=== PATIENT | male | born 1970 | race Two or more races ===

== ENCOUNTER 2019-11-07 10:25 | Inpatient (IN) | payer BC, OTHER ==
[~2019-11-07] VITALS: Ht 170.2 cm; Wt 73.6 kg
[2019-11-07 11:22] LABS: BASO % 0 % (0-3); EOS % 0 % (0-3); HEMATOCRIT 42.9 % (39.0-53.0); HEMOGLOBIN 14.7 g/dL (13.0-17.5); LYMPH # 0.7 x10^3/uL (1.0-4.8); LYMPH % 9 % (24-48); MEAN CORPUSCULAR HEMOGLOBIN 30 pg (25-35); MEAN CORPUSCULAR HGB CONC 34 g/dL (31-37); MEAN CORPUSCULAR VOLUME 87 fL (79-100); MONO # 0.5 x10^3/uL (0.0-1.1); MONO % 6 % (0-9); NEUT # 6.6 x10^3/uL (1.8-7.7); NEUT % 84 % (31-73); PLATELET COUNT 243 x10^3/uL (140-400); RED BLOOD COUNT 4.94 x10^6/uL (4.30-5.70); RED CELL DISTRIBUTION WIDTH 13.2 % (11.5-14.5); WHITE BLOOD COUNT 7.9 x10^3/uL (4.0-11.0)
[2019-11-07 11:33] LABS: CALCIUM 8.2 mg/dL (8.5-10.1); CREATININE 0.8 mg/dL (0.7-1.3); GFR 102.3; POTASSIUM 3.4 mmol/L (3.5-5.1)
[2019-11-07 11:39] LABS: ALBUMIN 2.9 g/dL (3.4-5.0); ALBUMIN/GLOBULIN RATIO 0.6 (1.0-1.7); TOTAL BILIRUBIN 0.6 mg/dL (0.2-1.0); TOTAL PROTEIN 7.6 g/dL (6.4-8.2)
[2019-11-07 11:40] LABS: D-DIMER 0.31 ug/mlFEU (0.00-0.50)
--- NOTE | 2019-11-07 11:48 | EKG ---
[facility] [address] [place] [address] Test Date: 2019-11-07 Test Time: 10:58:39 Pat Name: DEEPIKA LOMBARDO Department: Room: Gender: M [employer]: : 1970 Requested By: ANDREA GALLEGOS Order Number: [id number] Reading MD: Measurements Intervals [place] Rate: 103 P: 3 WI: 128 QRS: 0 QRSD: 80 T: 21 QT: 348 QTc: 458 Interpretive Statements SINUS TACHYCARDIA LEFTWARD AXIS OTHERWISE NORMAL ECG RI6.01 No previous ECG available for comparison
--- NOTE | 2019-11-07 12:22 | RAD ---
Chest one view HISTORY: Shortness of breath Comparison April 15, 2016 Patchy bilateral infiltrates worse on the right are present No effusions Heart pulmonary vasculature unremarkable IMPRESSION: Acute alveolar infiltrates worse on the right Electronically signed by: Joseph Allen MD (11/07/2019 12:19 PM) [id number]
[2019-11-07] MEDS ORDERED: cefTRIAXone IV Push 1 GM VIAL. IVP ONE (12:45)
--- NOTE | 2019-11-07 12:56 | PHYS DOC ---
Past Medical History Past Medical History: Diabetes-Type II, High Cholesterol Past Surgical History: Other Additional Past Surgical Histo: back Smoking Status: Never Smoker Alcohol Use: None Drug Use: None General Adult EDM: Chief Complaint: COUGH HPI: HPI: Patient is a 48 year old male with history of diabetic, presented to ER today for evaluation of cough, fever, trouble breathing and generalized weakness. Patient has been sick for about 10 days, he was tested positive for COVID-19 on October 29 at an outside facility. Patient came here today because he IS having trouble breathing. Patient denies any chest pain, no abdominal pain, no nausea vomiting. Review of Systems: Review of Systems: Constitutional: Positive for fever or chills. Positive for generalized weakness. Eyes: Denies change in visual acuity. [] HENT: Denies nasal congestion or sore throat. [] Respiratory: Positive for cough and trouble breathing. Cardiovascular: Denies chest pain or edema. [] GI: Denies abdominal pain, nausea, vomiting, bloody stools or diarrhea. [] : Denies dysuria. [] Musculoskeletal: Denies back pain or joint pain. [] Integument: Denies rash. [] Neurologic: Denies headache, focal weakness or sensory changes. [] Endocrine: Denies polyuria or polydipsia. [] Lymphatic: Denies swollen glands. [] Psychiatric: Denies depression or anxiety. [] Heart Score: Risk Factors: Risk Factors: DM, Current or recent (<one month) smoker, HTN, HLP, family history of CAD, obesity. Risk Scores: Score 0 - 3: 2.5% MACE over next 6 weeks - Discharge Home Score 4 - 6: 20.3% MACE over next 6 weeks - Admit for Clinical Observation Score 7 - 10: 72.7% MACE over next 6 weeks - Early Invasive Strategies Current Medications: Current Medications Medications (Trade) Dose Ordered Sig/Amy Start Time Stop Time Status Last Admin Dose Admin Ceftriaxone Sodium (Rocephin) 1 gm 1X ONCE 11/07/19 12:45 11/07/19 12:47 DC Allergies: Allergies: Allergies Coded Allergies Type Severity Reaction Last Updated Verified No Known Drug Allergies 04/15/16 No Physical Exam: PE: Constitutional: Well developed, well nourished, no acute distress, non-toxic appearance. [] HENT: Normocephalic, atraumatic, bilateral external ears normal, oropharynx moist, no oral exudates, nose normal. [] Eyes: PERRLA, EOMI, conjunctiva normal, no discharge. [] Neck: Normal range of motion, no tenderness, supple, no stridor. [] Cardiovascular sinus tachycardia, no murmur Lungs & Thorax: Bilateral breath sounds with crackles at lung bases, no respiratory distress. Abdomen: Bowel sounds normal, soft, no tenderness, no masses, no pulsatile masses. [] Skin: Warm, dry, no erythema, no rash. [] Back: No tenderness, no CVA tenderness. [] Extremities: No tenderness, no cyanosis, no clubbing, ROM intact, no edema. [] Neurologic: Alert and oriented X 3, normal motor function, normal sensory function, no focal deficits noted. [] Psychologic: Affect normal, judgement normal, mood normal. [] Current Patient Data: Labs: Laboratory Tests Test 11/07/19 11:06 White Blood Count 7.9 x10^3/uL (4.0-11.0) Red Blood Count 4.94 x10^6/uL (4.30-5.70) Hemoglobin 14.7 g/dL (13.0-17.5) Hematocrit 42.9 % (39.0-53.0) Mean Corpuscular Volume 87 fL (79-100) Mean Corpuscular Hemoglobin 30 pg (25-35) Mean Corpuscular Hemoglobin Concent 34 g/dL (31-37) Red Cell Distribution Width 13.2 % (11.5-14.5) Platelet Count 243 x10^3/uL (140-400) Neutrophils (%) (Auto) 84 % (31-73) H Lymphocytes (%) (Auto) 9 % (24-48) L Monocytes (%) (Auto) 6 % (0-9) Eosinophils (%) (Auto) 0 % (0-3) Basophils (%) (Auto) 0 % (0-3) Neutrophils # (Auto) 6.6 x10^3/uL (1.8-7.7) Lymphocytes # (Auto) 0.7 x10^3/uL (1.0-4.8) L Monocytes # (Auto) 0.5 x10^3/uL (0.0-1.1) Eosinophils # (Auto) 0.0 x10^3/uL (0.0-0.7) Basophils # (Auto) 0.0 x10^3/uL (0.0-0.2) Prothrombin Time 13.0 SEC (11.7-14.0) Prothrombin Time INR 1.0 (0.8-1.1) Activated Partial Thromboplast Time 31 SEC (24-38) D-Dimer (Jen) 0.31 ug/mlFEU (0.00-0.50) Sodium Level 137 mmol/L (136-145) Potassium Level 3.4 mmol/L (3.5-5.1) L Chloride Level 99 mmol/L (98-107) Carbon Dioxide Level 27 mmol/L (21-32) Anion Gap 11 (6-14) Blood Urea Nitrogen 10 mg/dL (8-26) Creatinine 0.8 mg/dL (0.7-1.3) Estimated GFR (Cockcroft-Gault) 102.3 BUN/Creatinine Ratio 13 (6-20) Glucose Level 155 mg/dL (70-99) H Lactic Acid Level 1.3 mmol/L (0.4-2.0) Calcium Level 8.2 mg/dL (8.5-10.1) L Total Bilirubin 0.6 mg/dL (0.2-1.0) Aspartate Amino Transferase (AST) 44 U/L (15-37) H Alanine Aminotransferase (ALT) 47 U/L (16-63) Alkaline Phosphatase 86 U/L (46-116) Troponin I Quantitative < 0.017 ng/mL (0.000-0.055) Total Protein 7.6 g/dL (6.4-8.2) Albumin 2.9 g/dL (3.4-5.0) L Albumin/Globulin Ratio 0.6 (1.0-1.7) L Lipase 112 U/L (73-393) Laboratory Tests 11/07/19 11:06 Laboratory Tests 11/07/19 11:06 Vital Signs: Vital Signs Date Time Temp Pulse Resp B/P (MAP) Pulse Ox O2 Delivery O2 Flow Rate FiO2 11/07/19 10:50 101.0 103 20 123/73 (90) 90 Nasal Cannula 81.0 101.0 EKG: EKG: [] Radiology/Procedures: Radiology/Procedures: [][facility] [address] [place] [address] IMAGING REPORT Signed PATIENT: DEEPIKA LOMBARDOACCOUNT: [id number] : 1970 LOCATION: ER AGE: 48 SEX: M EXAM STATUS: REG ER ORD. PHYSICIAN: ANDREA GALLEGOS DO REASON: SOA,COVID-19 INFECTION PROCEDURE: PORTABLE CHEST 1V Chest one view HISTORY: Shortness of breath Comparison April 15, 2016 Patchy bilateral infiltrates worse on the right are present No effusions Heart pulmonary vasculature unremarkable IMPRESSION: Acute alveolar infiltrates worse on the right Electronically signed by: Lexus Lisa MD (11/07/2019 12:19 PM) [id number] DICTATED and SIGNED BY: LEXUS LISA MD DATE: 11/07/19 1219 Course & Med Decision Making: Course & Med Decision Making Pertinent Labs and Imaging studies reviewed. (See chart for details) Patient is a 48-year-old male with COVID-19 pneumonia, presented with trouble breathing, his oxygen saturation on room air at 88%. Patient is not a smoker. Patient will be admitted to hospital for further evaluation and treatment. Discussed with Dr. Garduno who agrees TO admit the patient. Yosef Disclaimer: Yosef Disclaimer: This electronic medical record was generated, in whole or in part, using a voice recognition dictation system. Departure Departure Impression: Primary Impression: COVID-19 virus infection Additional Impressions: Pneumonia due to 2019 novel coronavirus Hypoxia Disposition: ADMITTED INPATIENT Admitting Physician: OLGA Condition: STABLE Referrals: JORGITO SWARTZ MD (PCP) Scripts No Active Prescriptions or Reported Meds Justicifation of Admission Dx: Justifications for Admission: Justification of Admission Dx: Yes Comminuty Aquired Pneumonia: Hypoxemia ANDREA GALLEGOS DO Nov 07, 2019 12:56
[2019-11-07] MEDS ORDERED: ONDANSETRON PF 4 MG/2 ML VIAL. IV PRN (13:15)
[2019-11-07] MEDS: IV NORMAL SALINE 1000ML BAG 1,000 ML IV SCH ×2 (13:59→18:12)
[2019-11-07 14:17] LABS: BILIRUBIN,URINE SMALL (NEG); CLARITY,URINE CLEAR; COLOR,URINE YELLOW; NITRITE,URINE NEGATIVE (NEG); PH,URINE 6.5 (<5.0-8.0); PROTEIN,URINE 100 mg/dL (NEG-TRACE)
[2019-11-07 14:31] LABS: SQUAMOUS EPITHELIAL CELL,UR FEW /LPF
[2019-11-07 14:32] LABS: BACTERIA,URINE 0 /HPF (0-FEW)
[2019-11-07] MEDS ORDERED: DEXTROSE 50% 25 GM / 50ML DISP.SYRIN. IV PRN (15:30)
[2019-11-07] MEDS ORDERED: POTASSIUM CHLORIDE 20 MEQ TABLET.ER. PO ONE (15:30)
[2019-11-07] MEDS: INSULIN LISPRO 300 UNITS/3 ML VIAL. SQ SCH (17:00)
--- NOTE | 2019-11-07 17:39 | CONS ---
DATE OF CONSULTATION: PULMONARY CONSULTATION ATTENDING PHYSICIAN: Mili Garduno MD REASON FOR CONSULTATION: COVID pneumonia, hypoxia, respiratory failure. HISTORY OF PRESENT ILLNESS: The patient is a 48-year-old male with history of diabetes. He presented to the Emergency Room with cough, fever, and shortness of breath and overall, generalized aches and pains. The patient was diagnosed with COVID-19 on 10/29 at an outside facility but starting to have some shortness of breath. As a result, he was hospitalized. His saturations were in the 80s on arrival. He is currently on 2 liters of oxygen. Chest x-ray revealed mild bilateral patchy infiltrates consistent with COVID-19 pneumonia. PAST MEDICAL HISTORY: Significant for type 2 diabetes and dyslipidemia. PAST SURGICAL HISTORY: No recent surgeries. ALLERGIES: None. MEDICATIONS: Reviewed as listed in the MRAD including Lovenox for DVT prophylaxis. REVIEW OF SYSTEMS: Due to language barrier unable to obtain from the patient. PHYSICAL EXAMINATION: VITAL SIGNS: Reviewed. T-max of 101, pulse ox 89% to 95% on 2 liters. Visual exam performed due to COVID-19 pandemia. GENERAL: He is in no obvious respiratory distress. He is comfortable on 2 liters. SKIN: No obvious skin rash. EXTREMITIES: No leg edema. LABORATORY DATA: Reviewed. White cell count 7.9, hemoglobin 14.7, platelets are 243. BUN and creatinine normal. IMPRESSION: 1. Acute hypoxic respiratory failure secondary to COVID-19 pneumonia. 2. Abnormal chest x-ray with faint bilateral patchy infiltrates favoring COVID-19 pneumonia. 3. No significant tobacco history. 4. Type 2 diabetes. RECOMMENDATIONS: 1. Continue present oxygen to keep saturation 92 and above. 2. Empiric antibiotic. 3. We will add steroids. 4. DVT prophylaxis with Lovenox. 5. We will monitor the clinical course. 6. Discussed with RN. DALLIN RICHEY MD DR: ADELINE/guera JOB#: [id number] / [id number]
[2019-11-07 18:06] VITALS: BP 102/71
[2019-11-07] MEDS: FOLIC/VIT B COMP W-C (RENAL) TABLET. PO SCH (18:12)
[2019-11-07] MEDS: ZINC SULFATE 220 MG CAPSULE. PO SCH (18:13)
--- NOTE | 2019-11-07 19:10 | PDOC1 ---
History and Physical Date of Admission Date of Admission DATE: 11/07/19 TIME: 19:05 Source Source: Chart review, Patient History of Present Illness History of Present Illness Mr. Brown is a 48 year old male admit with worsening symptoms of cough, fever, trouble breathing and generalized weakness. he appears listless and is lethargic, Patient has been sick for about 10 days, he was tested positive for COVID-19 on October 29 at an outside facility. admit from ER fro new hypoxia and trouble breathing, Patient denies any chest pain, no abdominal pain, no nausea vomiting. Past Medical History Cardiovascular: Hyperlipidemia Pulmonary: No pertinent hx CENTRAL NERVOUS SYSTEM: Other GI: No pertinent hx Heme/Onc: No pertinent hx Hepatobiliary: No pertinent hx Psych: No pertinent hx Musculoskeletal: low back pain, Osteoarthritis Rheumatologic: No pertinent hx Infectious disease: No pertinent hx Renal/: No pertinent hx Endocrine: Diabetes Past Surgical History Past Surgical History: Other Family History Family History: Diabetes Social History Smoke: No ALCOHOL: none Drugs: None Current Problem List Problem List Problems Medical Problems: (1) COVID-19 virus infection Status: Acute (2) Hypoxia Status: Acute (3) Pneumonia due to 2019 novel coronavirus Status: Acute Current Medications Current Medications Current Medications Ceftriaxone Sodium (Rocephin) 1 gm 1X ONCE IVP Last administered on 11/07/19at 14:00; Start 11/07/19 at 12:45; Stop 11/07/19 at 12:47; Status DC Ondansetron HCl (Zofran) 4 mg PRN Q8HRS PRN IV NAUSEA/VOMITING; Start 11/07/19 at 13:15; Stop 11/08/19 at 13:14 Sodium Chloride 1,000 ml @ 75 mls/hr [id number] IV Last administered on 11/07/19at 18:12; Start 11/07/19 at 13:13; Stop 11/08/19 at 13:12 Enoxaparin Sodium (Lovenox Per Pharmacy Prophylaxis Dosing) 1 each PRN DAILY PRN MC SEE COMMENTS; Start 11/07/19 at 15:30 Zinc Sulfate (Orazinc) 220 mg DAILY PO Last administered on 11/07/19at 18:13; Start 11/07/19 at 16:00 Vitamin B Complex/ Vitamin C (Lien-Anant) 1 tab DAILY PO Last administered on 11/07/19at 18:12; Start 11/07/19 at 16:00 Insulin Human Lispro (HumaLOG) 0-7 UNITS TIDWMEALS SQ ; Start 11/07/19 at 17:00 Dextrose (Dextrose 50%-Water Syringe) 12.5 gm PRN Q15MIN PRN IV SEE COMMENTS; Start 11/07/19 at 15:30 Potassium Chloride (Klor-Con) 40 meq 1X ONCE PO Last administered on 11/07/19at 18:12; Start 11/07/19 at 15:30; Stop 11/07/19 at 15:31; Status DC Enoxaparin Sodium (Lovenox 40mg Syringe) 40 mg BID SQ ; Start 11/07/19 at 21:00 Methylprednisolone Sodium Succinate (SOLU-Medrol 40MG VIAL) 40 mg Q8HRS IV ; Start 11/07/19 at 22:00 Ceftriaxone Sodium (Rocephin) 1 gm Q24H IVP ; Start 11/08/19 at 17:00 Active Scripts Active No Active Prescriptions or Reported Medications Allergies Allergies: Coded Allergies: No Known Drug Allergies (Unverified , 04/15/16) ROS General: YES: Chills, Fatigue, Malaise PSYCHOLOGICAL ROS: No: Anxiety, Behavioral Disorder, Concentration difficultie, Decreased libido, Depression, Disorientation, Hallucinations, Hostility, Irritablity, Memory difficulties, Mood Swings, Obsessive thoughts, Physical abuse, Sexual abuse, Sleep disturbances, Suicidal ideation, Other Eyes: No Blurry vision, No Decreased vision, No Double vision, No Dry eyes, No Excessive tearing, No Eye Pain, No Itchy Eyes, No Loss of vision, No Photophobia, No Scotomata, No Uses contacts, No Uses glasses, No Other HEENT: No: Heacaches, Visual Changes, Hearing change, Nasal congestion, Nasal discharge, Oral lesions, Sinus pain, Sore Throat, Epistaxis, Sneezing, Snoring, Tinnitus, Vertigo, Vocal changes, Other Respiratory: YES: Cough, Shortness of breath; No: Hemoptysis, Orthopnea, Pleuritic Pain, Sputum Changes, Stridor, Tachypnea, Wheezing, Other Cardiovascular: No Chest Pain, No Palpitations, No Orthopnea, No Paroxysmal Noc. Dyspnea, No Edema, No Lt Headedness, No Other Gastrointestinal: Yes Nausea; No Vomiting, No Abdominal Pain, No Diarrhea, No Constipation, No Melena, No Hematochezia, No Other Genitourinary: No Dysuria, No Frequency, No Incontinence, No Hematuria, No Retention, No Discharge, No Urgency, No Pain, No Flank Pain, No Other, No , No , No , No , No , No , No Musculoskeletal: Yes Joint Stiffness, Yes Muscle Pain; No Gait Disturbance, No Joint Pain, No Joint Swelling, No Muscular Weakness, No Pain In:, No Swelling In:, No Other Neurological: No Behavorial Changes, No Bowel/Bladder ControlChng, No Confusion, No Dizziness, No Gait Disturbance, No Headaches, No Impaired Coord/balance, No Memory Loss, No Numbness/Tingling, No Seizures, No Speech Problems, No Tremors, No Visual Changes, No Weakness, No Other Skin: Yes Dry Skin; No Eczema, No Hair Changes, No Lumps, No Mole Changes, No Mottling, No Nail Changes, No Pruritus, No Rash, No Skin Lesion Changes, No Other, No Acne Physical Exam General: Alert, Cooperative, mild distress, moderate distress HEENT: Atraumatic Lungs: Clear to auscultation Heart: S1S2, RRR Extremities: No edema Skin: No breakdown Neuro: Normal speech, Normal tone Psych/Mental Status: Mood NL Vitals Vitals Vital Signs Date Time Temp Pulse Resp B/P (MAP) Pulse Ox O2 Delivery O2 Flow Rate FiO2 11/07/19 18:06 98.4 84 18 102/71 (81) 93 Nasal Cannula 3.0 98.4 Labs Labs Laboratory Tests Test 11/07/19 11:06 11/07/19 14:05 11/07/19 14:36 11/07/19 17:14 White Blood Count 7.9 x10^3/uL (4.0-11.0) Red Blood Count 4.94 x10^6/uL (4.30-5.70) Hemoglobin 14.7 g/dL (13.0-17.5) Hematocrit 42.9 % (39.0-53.0) Mean Corpuscular Volume 87 fL (79-100) Mean Corpuscular Hemoglobin 30 pg (25-35) Mean Corpuscular Hemoglobin Concent 34 g/dL (31-37) Red Cell Distribution Width 13.2 % (11.5-14.5) Platelet Count 243 x10^3/uL (140-400) Neutrophils (%) (Auto) 84 % (31-73) Lymphocytes (%) (Auto) 9 % (24-48) Monocytes (%) (Auto) 6 % (0-9) Eosinophils (%) (Auto) 0 % (0-3) Basophils (%) (Auto) 0 % (0-3) Neutrophils # (Auto) 6.6 x10^3/uL (1.8-7.7) Lymphocytes # (Auto) 0.7 x10^3/uL (1.0-4.8) Monocytes # (Auto) 0.5 x10^3/uL (0.0-1.1) Eosinophils # (Auto) 0.0 x10^3/uL (0.0-0.7) Basophils # (Auto) 0.0 x10^3/uL (0.0-0.2) Prothrombin Time 13.0 SEC (11.7-14.0) Prothromb Time International Ratio 1.0 (0.8-1.1) Activated Partial Thromboplast Time 31 SEC (24-38) D-Dimer (Jen) 0.31 ug/mlFEU (0.00-0.50) Sodium Level 137 mmol/L (136-145) Potassium Level 3.4 mmol/L (3.5-5.1) Chloride Level 99 mmol/L (98-107) Carbon Dioxide Level 27 mmol/L (21-32) Anion Gap 11 (6-14) Blood Urea Nitrogen 10 mg/dL (8-26) Creatinine 0.8 mg/dL (0.7-1.3) Estimated GFR (Cockcroft-Gault) 102.3 BUN/Creatinine Ratio 13 (6-20) Glucose Level 155 mg/dL (70-99) Lactic Acid Level 1.3 mmol/L (0.4-2.0) Calcium Level 8.2 mg/dL (8.5-10.1) Total Bilirubin 0.6 mg/dL (0.2-1.0) Aspartate Amino Transf (AST/SGOT) 44 U/L (15-37) Alanine Aminotransferase (ALT/SGPT) 47 U/L (16-63) Alkaline Phosphatase 86 U/L (46-116) Troponin I Quantitative < 0.017 ng/mL (0.000-0.055) Total Protein 7.6 g/dL (6.4-8.2) Albumin 2.9 g/dL (3.4-5.0) Albumin/Globulin Ratio 0.6 (1.0-1.7) Lipase 112 U/L (73-393) Urine Collection Type Unknown Urine Color Yellow Urine Clarity Clear Urine pH 6.5 (<5.0-8.0) Urine Specific [place] 1.025 (1.000-1.030) Urine Protein 100 mg/dL (NEG-TRACE) Urine Glucose (UA) Negative mg/dL (NEG) Urine Ketones (Stick) >=80 mg/dL (NEG) Urine Blood Negative (NEG) Urine Nitrite Negative (NEG) Urine Bilirubin Small (NEG) Urine Urobilinogen Dipstick 1.0 mg/dL (0.2 mg/dL) Urine Leukocyte Esterase Negative (NEG) Urine RBC 1-2 /HPF (0-2) Urine WBC 1-4 /HPF (0-4) Urine Squamous Epithelial Cells Few /LPF Urine Bacteria 0 /HPF (0-FEW) Urine Mucus Slight /LPF Glucose (Fingerstick) 132 mg/dL (70-99) 166 mg/dL (70-99) Laboratory Tests Test 11/07/19 11:06 11/07/19 14:05 11/07/19 14:36 11/07/19 17:14 White Blood Count 7.9 x10^3/uL (4.0-11.0) Red Blood Count 4.94 x10^6/uL (4.30-5.70) Hemoglobin 14.7 g/dL (13.0-17.5) Hematocrit 42.9 % (39.0-53.0) Mean Corpuscular Volume 87 fL (79-100) Mean Corpuscular Hemoglobin 30 pg (25-35) Mean Corpuscular Hemoglobin Concent 34 g/dL (31-37) Red Cell Distribution Width 13.2 % (11.5-14.5) Platelet Count 243 x10^3/uL (140-400) Neutrophils (%) (Auto) 84 % (31-73) Lymphocytes (%) (Auto) 9 % (24-48) Monocytes (%) (Auto) 6 % (0-9) Eosinophils (%) (Auto) 0 % (0-3) Basophils (%) (Auto) 0 % (0-3) Neutrophils # (Auto) 6.6 x10^3/uL (1.8-7.7) Lymphocytes # (Auto) 0.7 x10^3/uL (1.0-4.8) Monocytes # (Auto) 0.5 x10^3/uL (0.0-1.1) Eosinophils # (Auto) 0.0 x10^3/uL (0.0-0.7) Basophils # (Auto) 0.0 x10^3/uL (0.0-0.2) Prothrombin Time 13.0 SEC (11.7-14.0) Prothromb Time International Ratio 1.0 (0.8-1.1) Activated Partial Thromboplast Time 31 SEC (24-38) D-Dimer (Jen) 0.31 ug/mlFEU (0.00-0.50) Sodium Level 137 mmol/L (136-145) Potassium Level 3.4 mmol/L (3.5-5.1) Chloride Level 99 mmol/L (98-107) Carbon Dioxide Level 27 mmol/L (21-32) Anion Gap 11 (6-14) Blood Urea Nitrogen 10 mg/dL (8-26) Creatinine 0.8 mg/dL (0.7-1.3) Estimated GFR (Cockcroft-Gault) 102.3 BUN/Creatinine Ratio 13 (6-20) Glucose Level 155 mg/dL (70-99) Lactic Acid Level 1.3 mmol/L (0.4-2.0) Calcium Level 8.2 mg/dL (8.5-10.1) Total Bilirubin 0.6 mg/dL (0.2-1.0) Aspartate Amino Transf (AST/SGOT) 44 U/L (15-37) Alanine Aminotransferase (ALT/SGPT) 47 U/L (16-63) Alkaline Phosphatase 86 U/L (46-116) Troponin I Quantitative < 0.017 ng/mL (0.000-0.055) Total Protein 7.6 g/dL (6.4-8.2) Albumin 2.9 g/dL (3.4-5.0) Albumin/Globulin Ratio 0.6 (1.0-1.7) Lipase 112 U/L (73-393) Urine Collection Type Unknown Urine Color Yellow Urine Clarity Clear Urine pH 6.5 (<5.0-8.0) Urine Specific [place] 1.025 (1.000-1.030) Urine Protein 100 mg/dL (NEG-TRACE) Urine Glucose (UA) Negative mg/dL (NEG) Urine Ketones (Stick) >=80 mg/dL (NEG) Urine Blood Negative (NEG) Urine Nitrite Negative (NEG) Urine Bilirubin Small (NEG) Urine Urobilinogen Dipstick 1.0 mg/dL (0.2 mg/dL) Urine Leukocyte Esterase Negative (NEG) Urine RBC 1-2 /HPF (0-2) Urine WBC 1-4 /HPF (0-4) Urine Squamous Epithelial Cells Few /LPF Urine Bacteria 0 /HPF (0-FEW) Urine Mucus Slight /LPF Glucose (Fingerstick) 132 mg/dL (70-99) 166 mg/dL (70-99) VTE Prophylaxis Ordered VTE Prophylaxis Devices: No VTE Pharmacological Prophylaxi: Yes Assessment/Plan Assessment/Plan COVID 19 acute hypoxia pneumonia sepsis moderate malnutrition Dm2, will do lantus and sliding scale admit to COVID unit, he was positive from oct 29, will isolate, seen with PPE, PULM consult, lovenox, steroid, abx, antitussives, Justicifation of Admission Dx: Justifications for Admission: Justification of Admission Dx: Yes Comminuty Aquired Pneumonia: Hypoxemia QASIM RHODES MD Nov 07, 2019 19:10
[2019-11-07] MEDS: INSULIN GLARGINE SYRINGE. SQ SCH (21:00)
[2019-11-07] MEDS: BENZONATATE 100 MG CAPSULE. PO SCH (21:53)
[2019-11-07] MEDS: DOXYCYCLINE HYCLATE 100 MG TABLET PO SCH (21:53)
[2019-11-07] MEDS: oxyCODONE/APAP 5/325 1 TAB TABLET PO PRN (21:54)
[2019-11-07] MEDS: ENOXAPARIN 40 MG/0.4 ML SYRINGE. SQ SCH (21:54)
[2019-11-07] MEDS: methylPREDNISolone SOD SUCC PF 40 MG/ML VIAL. IV SCH (21:54)
[2019-11-07 23:00] VITALS: BP 111/67
[2019-11-08] VITALS (18 sets, daily range): BP systolic 110–133; BP diastolic 60–80
[2019-11-08 04:38] LABS: BASO % 0 % (0-3); EOS % 0 % (0-3); HEMATOCRIT 43.7 % (39.0-53.0); HEMOGLOBIN 14.9 g/dL (13.0-17.5); LYMPH # 0.6 x10^3/uL (1.0-4.8); LYMPH % 8 % (24-48); MEAN CORPUSCULAR HEMOGLOBIN 30 pg (25-35); MEAN CORPUSCULAR HGB CONC 34 g/dL (31-37); MEAN CORPUSCULAR VOLUME 88 fL (79-100); MONO # 0.2 x10^3/uL (0.0-1.1); MONO % 4 % (0-9); NEUT % 88 % (31-73); PLATELET COUNT 264 x10^3/uL (140-400); RED BLOOD COUNT 4.95 x10^6/uL (4.30-5.70); RED CELL DISTRIBUTION WIDTH 13.3 % (11.5-14.5); WHITE BLOOD COUNT 6.8 x10^3/uL (4.0-11.0)
[2019-11-08 05:37] LABS: ALBUMIN 2.6 g/dL (3.4-5.0); ALBUMIN/GLOBULIN RATIO 0.6 (1.0-1.7); CALCIUM 8.6 mg/dL (8.5-10.1); CREATININE 0.9 mg/dL (0.7-1.3); GFR 89.3; POTASSIUM 4.2 mmol/L (3.5-5.1); TOTAL BILIRUBIN 0.5 mg/dL (0.2-1.0); TOTAL PROTEIN 7.3 g/dL (6.4-8.2)
[2019-11-08] MEDS: methylPREDNISolone SOD SUCC PF 40 MG/ML VIAL. IV SCH ×3 (06:52→22:00)
[2019-11-08] MEDS: INSULIN LISPRO 300 UNITS/3 ML VIAL. SQ SCH ×3 (08:00→17:00)
--- NOTE | 2019-11-08 08:38 | PDOC ---
PULMONARY PROGRESS NOTES DATE: 11/08/19 TIME: 08:38 Subjective Pt. has low grade fever this am, hypoxic this morning requiring NRB -- only 90% on NRB, will transfer to ICU Vitals Vital Signs Date Time Temp Pulse Resp B/P (MAP) Pulse Ox O2 Delivery O2 Flow Rate FiO2 11/08/19 04:15 92 Venturi Mask 15.0 11/08/19 03:00 98.2 83 18 110/62 (78) 98.2 Comments Visual exam preformed as pt. seen during COVID-19 pandemic 100% NRN tachyapenic RRR No rash no edema Labs Laboratory Tests Test 11/07/19 11:06 11/07/19 14:05 11/07/19 14:36 11/07/19 17:14 White Blood Count 7.9 x10^3/uL (4.0-11.0) Red Blood Count 4.94 x10^6/uL (4.30-5.70) Hemoglobin 14.7 g/dL (13.0-17.5) Hematocrit 42.9 % (39.0-53.0) Mean Corpuscular Volume 87 fL (79-100) Mean Corpuscular Hemoglobin 30 pg (25-35) Mean Corpuscular Hemoglobin Concent 34 g/dL (31-37) Red Cell Distribution Width 13.2 % (11.5-14.5) Platelet Count 243 x10^3/uL (140-400) Neutrophils (%) (Auto) 84 % (31-73) Lymphocytes (%) (Auto) 9 % (24-48) Monocytes (%) (Auto) 6 % (0-9) Eosinophils (%) (Auto) 0 % (0-3) Basophils (%) (Auto) 0 % (0-3) Neutrophils # (Auto) 6.6 x10^3/uL (1.8-7.7) Lymphocytes # (Auto) 0.7 x10^3/uL (1.0-4.8) Monocytes # (Auto) 0.5 x10^3/uL (0.0-1.1) Eosinophils # (Auto) 0.0 x10^3/uL (0.0-0.7) Basophils # (Auto) 0.0 x10^3/uL (0.0-0.2) Prothrombin Time 13.0 SEC (11.7-14.0) Prothromb Time International Ratio 1.0 (0.8-1.1) Activated Partial Thromboplast Time 31 SEC (24-38) D-Dimer (Jen) 0.31 ug/mlFEU (0.00-0.50) Sodium Level 137 mmol/L (136-145) Potassium Level 3.4 mmol/L (3.5-5.1) Chloride Level 99 mmol/L (98-107) Carbon Dioxide Level 27 mmol/L (21-32) Anion Gap 11 (6-14) Blood Urea Nitrogen 10 mg/dL (8-26) Creatinine 0.8 mg/dL (0.7-1.3) Estimated GFR (Cockcroft-Gault) 102.3 BUN/Creatinine Ratio 13 (6-20) Glucose Level 155 mg/dL (70-99) Lactic Acid Level 1.3 mmol/L (0.4-2.0) Calcium Level 8.2 mg/dL (8.5-10.1) Total Bilirubin 0.6 mg/dL (0.2-1.0) Aspartate Amino Transf (AST/SGOT) 44 U/L (15-37) Alanine Aminotransferase (ALT/SGPT) 47 U/L (16-63) Alkaline Phosphatase 86 U/L (46-116) Troponin I Quantitative < 0.017 ng/mL (0.000-0.055) Total Protein 7.6 g/dL (6.4-8.2) Albumin 2.9 g/dL (3.4-5.0) Albumin/Globulin Ratio 0.6 (1.0-1.7) Lipase 112 U/L (73-393) Urine Collection Type Unknown Urine Color Yellow Urine Clarity Clear Urine pH 6.5 (<5.0-8.0) Urine Specific Sells 1.025 (1.000-1.030) Urine Protein 100 mg/dL (NEG-TRACE) Urine Glucose (UA) Negative mg/dL (NEG) Urine Ketones (Stick) >=80 mg/dL (NEG) Urine Blood Negative (NEG) Urine Nitrite Negative (NEG) Urine Bilirubin Small (NEG) Urine Urobilinogen Dipstick 1.0 mg/dL (0.2 mg/dL) Urine Leukocyte Esterase Negative (NEG) Urine RBC 1-2 /HPF (0-2) Urine WBC 1-4 /HPF (0-4) Urine Squamous Epithelial Cells Few /LPF Urine Bacteria 0 /HPF (0-FEW) Urine Mucus Slight /LPF Glucose (Fingerstick) 132 mg/dL (70-99) 166 mg/dL (70-99) Test 11/07/19 22:07 11/08/19 03:40 11/08/19 08:23 Glucose (Fingerstick) 135 mg/dL (70-99) 220 mg/dL (70-99) White Blood Count 6.8 x10^3/uL (4.0-11.0) Red Blood Count 4.95 x10^6/uL (4.30-5.70) Hemoglobin 14.9 g/dL (13.0-17.5) Hematocrit 43.7 % (39.0-53.0) Mean Corpuscular Volume 88 fL (79-100) Mean Corpuscular Hemoglobin 30 pg (25-35) Mean Corpuscular Hemoglobin Concent 34 g/dL (31-37) Red Cell Distribution Width 13.3 % (11.5-14.5) Platelet Count 264 x10^3/uL (140-400) Neutrophils (%) (Auto) 88 % (31-73) Lymphocytes (%) (Auto) 8 % (24-48) Monocytes (%) (Auto) 4 % (0-9) Eosinophils (%) (Auto) 0 % (0-3) Basophils (%) (Auto) 0 % (0-3) Neutrophils # (Auto) 6.0 x10^3/uL (1.8-7.7) Lymphocytes # (Auto) 0.6 x10^3/uL (1.0-4.8) Monocytes # (Auto) 0.2 x10^3/uL (0.0-1.1) Eosinophils # (Auto) 0.0 x10^3/uL (0.0-0.7) Basophils # (Auto) 0.0 x10^3/uL (0.0-0.2) Sodium Level 138 mmol/L (136-145) Potassium Level 4.2 mmol/L (3.5-5.1) Chloride Level 101 mmol/L (98-107) Carbon Dioxide Level 26 mmol/L (21-32) Anion Gap 11 (6-14) Blood Urea Nitrogen 13 mg/dL (8-26) Creatinine 0.9 mg/dL (0.7-1.3) Estimated GFR (Cockcroft-Gault) 89.3 BUN/Creatinine Ratio 14 (6-20) Glucose Level 218 mg/dL (70-99) Calcium Level 8.6 mg/dL (8.5-10.1) Total Bilirubin 0.5 mg/dL (0.2-1.0) Aspartate Amino Transf (AST/SGOT) 44 U/L (15-37) Alanine Aminotransferase (ALT/SGPT) 63 U/L (16-63) Alkaline Phosphatase 83 U/L (46-116) Total Protein 7.3 g/dL (6.4-8.2) Albumin 2.6 g/dL (3.4-5.0) Albumin/Globulin Ratio 0.6 (1.0-1.7) Laboratory Tests Test 11/07/19 11:06 11/07/19 14:05 11/07/19 14:36 11/07/19 17:14 White Blood Count 7.9 x10^3/uL (4.0-11.0) Red Blood Count 4.94 x10^6/uL (4.30-5.70) Hemoglobin 14.7 g/dL (13.0-17.5) Hematocrit 42.9 % (39.0-53.0) Mean Corpuscular Volume 87 fL (79-100) Mean Corpuscular Hemoglobin 30 pg (25-35) Mean Corpuscular Hemoglobin Concent 34 g/dL (31-37) Red Cell Distribution Width 13.2 % (11.5-14.5) Platelet Count 243 x10^3/uL (140-400) Neutrophils (%) (Auto) 84 % (31-73) Lymphocytes (%) (Auto) 9 % (24-48) Monocytes (%) (Auto) 6 % (0-9) Eosinophils (%) (Auto) 0 % (0-3) Basophils (%) (Auto) 0 % (0-3) Neutrophils # (Auto) 6.6 x10^3/uL (1.8-7.7) Lymphocytes # (Auto) 0.7 x10^3/uL (1.0-4.8) Monocytes # (Auto) 0.5 x10^3/uL (0.0-1.1) Eosinophils # (Auto) 0.0 x10^3/uL (0.0-0.7) Basophils # (Auto) 0.0 x10^3/uL (0.0-0.2) Prothrombin Time 13.0 SEC (11.7-14.0) Prothromb Time International Ratio 1.0 (0.8-1.1) Activated Partial Thromboplast Time 31 SEC (24-38) D-Dimer (Jen) 0.31 ug/mlFEU (0.00-0.50) Sodium Level 137 mmol/L (136-145) Potassium Level 3.4 mmol/L (3.5-5.1) Chloride Level 99 mmol/L (98-107) Carbon Dioxide Level 27 mmol/L (21-32) Anion Gap 11 (6-14) Blood Urea Nitrogen 10 mg/dL (8-26) Creatinine 0.8 mg/dL (0.7-1.3) Estimated GFR (Cockcroft-Gault) 102.3 BUN/Creatinine Ratio 13 (6-20) Glucose Level 155 mg/dL (70-99) Lactic Acid Level 1.3 mmol/L (0.4-2.0) Calcium Level 8.2 mg/dL (8.5-10.1) Total Bilirubin 0.6 mg/dL (0.2-1.0) Aspartate Amino Transf (AST/SGOT) 44 U/L (15-37) Alanine Aminotransferase (ALT/SGPT) 47 U/L (16-63) Alkaline Phosphatase 86 U/L (46-116) Troponin I Quantitative < 0.017 ng/mL (0.000-0.055) Total Protein 7.6 g/dL (6.4-8.2) Albumin 2.9 g/dL (3.4-5.0) Albumin/Globulin Ratio 0.6 (1.0-1.7) Lipase 112 U/L (73-393) Urine Collection Type Unknown Urine Color Yellow Urine Clarity Clear Urine pH 6.5 (<5.0-8.0) Urine Specific Sells 1.025 (1.000-1.030) Urine Protein 100 mg/dL (NEG-TRACE) Urine Glucose (UA) Negative mg/dL (NEG) Urine Ketones (Stick) >=80 mg/dL (NEG) Urine Blood Negative (NEG) Urine Nitrite Negative (NEG) Urine Bilirubin Small (NEG) Urine Urobilinogen Dipstick 1.0 mg/dL (0.2 mg/dL) Urine Leukocyte Esterase Negative (NEG) Urine RBC 1-2 /HPF (0-2) Urine WBC 1-4 /HPF (0-4) Urine Squamous Epithelial Cells Few /LPF Urine Bacteria 0 /HPF (0-FEW) Urine Mucus Slight /LPF Glucose (Fingerstick) 132 mg/dL (70-99) 166 mg/dL (70-99) Test 11/07/19 22:07 11/08/19 03:40 11/08/19 08:23 Glucose (Fingerstick) 135 mg/dL (70-99) 220 mg/dL (70-99) White Blood Count 6.8 x10^3/uL (4.0-11.0) Red Blood Count 4.95 x10^6/uL (4.30-5.70) Hemoglobin 14.9 g/dL (13.0-17.5) Hematocrit 43.7 % (39.0-53.0) Mean Corpuscular Volume 88 fL (79-100) Mean Corpuscular Hemoglobin 30 pg (25-35) Mean Corpuscular Hemoglobin Concent 34 g/dL (31-37) Red Cell Distribution Width 13.3 % (11.5-14.5) Platelet Count 264 x10^3/uL (140-400) Neutrophils (%) (Auto) 88 % (31-73) Lymphocytes (%) (Auto) 8 % (24-48) Monocytes (%) (Auto) 4 % (0-9) Eosinophils (%) (Auto) 0 % (0-3) Basophils (%) (Auto) 0 % (0-3) Neutrophils # (Auto) 6.0 x10^3/uL (1.8-7.7) Lymphocytes # (Auto) 0.6 x10^3/uL (1.0-4.8) Monocytes # (Auto) 0.2 x10^3/uL (0.0-1.1) Eosinophils # (Auto) 0.0 x10^3/uL (0.0-0.7) Basophils # (Auto) 0.0 x10^3/uL (0.0-0.2) Sodium Level 138 mmol/L (136-145) Potassium Level 4.2 mmol/L (3.5-5.1) Chloride Level 101 mmol/L (98-107) Carbon Dioxide Level 26 mmol/L (21-32) Anion Gap 11 (6-14) Blood Urea Nitrogen 13 mg/dL (8-26) Creatinine 0.9 mg/dL (0.7-1.3) Estimated GFR (Cockcroft-Gault) 89.3 BUN/Creatinine Ratio 14 (6-20) Glucose Level 218 mg/dL (70-99) Calcium Level 8.6 mg/dL (8.5-10.1) Total Bilirubin 0.5 mg/dL (0.2-1.0) Aspartate Amino Transf (AST/SGOT) 44 U/L (15-37) Alanine Aminotransferase (ALT/SGPT) 63 U/L (16-63) Alkaline Phosphatase 83 U/L (46-116) Total Protein 7.3 g/dL (6.4-8.2) Albumin 2.6 g/dL (3.4-5.0) Albumin/Globulin Ratio 0.6 (1.0-1.7) Medications Active Scripts Medications Dose Route/Sig Max Daily Dose Days Date Category No Active Prescriptions or Reported Medications Rx Comments CXR IMPRESSION: Acute alveolar infiltrates worse on the right Impression . IMPRESSION: 1. Acute hypoxic respiratory failure secondary to COVID-19 pneumonia- worsening 2. Abnormal chest x-ray with faint bilateral patchy infiltrates favoring COVID- 19 pneumonia. 3. No significant tobacco history. 4. Type 2 diabetes. 5. Fever Plan . RECOMMENDATIONS: 1. Continue present oxygen to keep saturation 92 and above, requiring NRB at 100%, will use vapotherm if needed 2. cont. antibiotic 3. cont. steroids. 4. DVT prophylaxis with Lovenox. 5. will proceed with convalescent plasma 6. Discussed with RN. We will monitor the clinical course DALLIN RICHEY MD Nov 08, 2019 08:38
[2019-11-08 09:15] LABS: % BANDS 5 % (0-9); % LYMPHS 3 % (24-48); % MONOS 1 % (0-10); % SEGS 91 % (35-66); PLT ESTIMATE ADEQUATE (ADEQUATE)
--- NOTE | 2019-11-08 09:32 | NUR ---
Pt was initially on 4L and sat were approx 82% overnight as reported by night RN. The pt was then placed on 15L 50% venti. This nurse placed pt on nonrebreather at approx 0900 as pt had O2 saturation at 85%. Pt sats were then up to 93%.
--- NOTE | 2019-11-08 10:25 | PDOC ---
PROGRESS NOTES Date of Service: DATE: 11/08/19 TIME: 10:24 Chief Complaint Chief Complaint VTE Prophylaxis Ordered VTE Prophylaxis Devices: No VTE Pharmacological Prophylaxi: Yes Assessment/Plan Assessment/Plan COVID 19 acute hypoxia pneumonia sepsis moderate malnutrition Dm2, will do lantus and sliding scale admit to COVID unit, he was positive from oct 29, will isolate, seen with PPE, PULM consult, lovenox, steroid, abx, antitussives, Justicifation of Admission Dx: Justicifation of Admission Dx: Justifications for Admission: Justification of Admission Dx: Yes Comminuty Aquired Pneumonia: Hypoxemia History of Present Illness History of Present Illness History of Present Illness History of Present Illness Mr. Brown is a 48 year old male admit with worsening symptoms of cough, fever, trouble breathing and generalized weakness. he appears listless and is lethargic, Patient has been sick for about 10 days, he was tested positive for COVID-19 on October 29 at an outside facility. admit from ER fro new hypoxia and trouble breathing, Patient denies any chest pain, no abdominal pain, no nausea vomiting. Past Medical History Cardiovascular: Hyperlipidemia Pulmonary: No pertinent hx CENTRAL NERVOUS SYSTEM: Other GI: No pertinent hx Heme/Onc: No pertinent hx Hepatobiliary: No pertinent hx Psych: No pertinent hx Musculoskeletal: low back pain, Osteoarthritis Rheumatologic: No pertinent hx Infectious disease: No pertinent hx Renal/: No pertinent hx Endocrine: Diabetes Past Surgical History Past Surgical History: Other Family History Family History: Diabetes Social History Smoke: No ALCOHOL: none Drugs: None Vitals Vitals Vital Signs Date Time Temp Pulse Resp B/P (MAP) Pulse Ox O2 Delivery O2 Flow Rate FiO2 11/08/19 07:30 99.6 87 22 117/65 (82) 85 Venturi Mask 15.0 99.6 Physical Exam General: Alert, Cooperative, mild distress, moderate distress Extremities: No edema Skin: No breakdown Labs LABS Laboratory Tests Test 11/07/19 11:06 11/07/19 14:05 11/07/19 14:36 11/07/19 17:14 White Blood Count 7.9 x10^3/uL (4.0-11.0) Red Blood Count 4.94 x10^6/uL (4.30-5.70) Hemoglobin 14.7 g/dL (13.0-17.5) Hematocrit 42.9 % (39.0-53.0) Mean Corpuscular Volume 87 fL (79-100) Mean Corpuscular Hemoglobin 30 pg (25-35) Mean Corpuscular Hemoglobin Concent 34 g/dL (31-37) Red Cell Distribution Width 13.2 % (11.5-14.5) Platelet Count 243 x10^3/uL (140-400) Neutrophils (%) (Auto) 84 % (31-73) Lymphocytes (%) (Auto) 9 % (24-48) Monocytes (%) (Auto) 6 % (0-9) Eosinophils (%) (Auto) 0 % (0-3) Basophils (%) (Auto) 0 % (0-3) Neutrophils # (Auto) 6.6 x10^3/uL (1.8-7.7) Lymphocytes # (Auto) 0.7 x10^3/uL (1.0-4.8) Monocytes # (Auto) 0.5 x10^3/uL (0.0-1.1) Eosinophils # (Auto) 0.0 x10^3/uL (0.0-0.7) Basophils # (Auto) 0.0 x10^3/uL (0.0-0.2) Prothrombin Time 13.0 SEC (11.7-14.0) Prothromb Time International Ratio 1.0 (0.8-1.1) Activated Partial Thromboplast Time 31 SEC (24-38) D-Dimer (Jen) 0.31 ug/mlFEU (0.00-0.50) Sodium Level 137 mmol/L (136-145) Potassium Level 3.4 mmol/L (3.5-5.1) Chloride Level 99 mmol/L (98-107) Carbon Dioxide Level 27 mmol/L (21-32) Anion Gap 11 (6-14) Blood Urea Nitrogen 10 mg/dL (8-26) Creatinine 0.8 mg/dL (0.7-1.3) Estimated GFR (Cockcroft-Gault) 102.3 BUN/Creatinine Ratio 13 (6-20) Glucose Level 155 mg/dL (70-99) Lactic Acid Level 1.3 mmol/L (0.4-2.0) Calcium Level 8.2 mg/dL (8.5-10.1) Total Bilirubin 0.6 mg/dL (0.2-1.0) Aspartate Amino Transf (AST/SGOT) 44 U/L (15-37) Alanine Aminotransferase (ALT/SGPT) 47 U/L (16-63) Alkaline Phosphatase 86 U/L (46-116) Troponin I Quantitative < 0.017 ng/mL (0.000-0.055) Total Protein 7.6 g/dL (6.4-8.2) Albumin 2.9 g/dL (3.4-5.0) Albumin/Globulin Ratio 0.6 (1.0-1.7) Lipase 112 U/L (73-393) Urine Collection Type Unknown Urine Color Yellow Urine Clarity Clear Urine pH 6.5 (<5.0-8.0) Urine Specific Riner 1.025 (1.000-1.030) Urine Protein 100 mg/dL (NEG-TRACE) Urine Glucose (UA) Negative mg/dL (NEG) Urine Ketones (Stick) >=80 mg/dL (NEG) Urine Blood Negative (NEG) Urine Nitrite Negative (NEG) Urine Bilirubin Small (NEG) Urine Urobilinogen Dipstick 1.0 mg/dL (0.2 mg/dL) Urine Leukocyte Esterase Negative (NEG) Urine RBC 1-2 /HPF (0-2) Urine WBC 1-4 /HPF (0-4) Urine Squamous Epithelial Cells Few /LPF Urine Bacteria 0 /HPF (0-FEW) Urine Mucus Slight /LPF Glucose (Fingerstick) 132 mg/dL (70-99) 166 mg/dL (70-99) Test 11/07/19 22:07 11/08/19 03:40 11/08/19 08:23 Glucose (Fingerstick) 135 mg/dL (70-99) 220 mg/dL (70-99) White Blood Count 6.8 x10^3/uL (4.0-11.0) Red Blood Count 4.95 x10^6/uL (4.30-5.70) Hemoglobin 14.9 g/dL (13.0-17.5) Hematocrit 43.7 % (39.0-53.0) Mean Corpuscular Volume 88 fL (79-100) Mean Corpuscular Hemoglobin 30 pg (25-35) Mean Corpuscular Hemoglobin Concent 34 g/dL (31-37) Red Cell Distribution Width 13.3 % (11.5-14.5) Platelet Count 264 x10^3/uL (140-400) Neutrophils (%) (Auto) 88 % (31-73) Lymphocytes (%) (Auto) 8 % (24-48) Monocytes (%) (Auto) 4 % (0-9) Eosinophils (%) (Auto) 0 % (0-3) Basophils (%) (Auto) 0 % (0-3) Neutrophils # (Auto) 6.0 x10^3/uL (1.8-7.7) Lymphocytes # (Auto) 0.6 x10^3/uL (1.0-4.8) Monocytes # (Auto) 0.2 x10^3/uL (0.0-1.1) Eosinophils # (Auto) 0.0 x10^3/uL (0.0-0.7) Basophils # (Auto) 0.0 x10^3/uL (0.0-0.2) Segmented Neutrophils % 91 % (35-66) Band Neutrophils % 5 % (0-9) Lymphocytes % 3 % (24-48) Monocytes % 1 % (0-10) Platelet Estimate Adequate (ADEQUATE) Sodium Level 138 mmol/L (136-145) Potassium Level 4.2 mmol/L (3.5-5.1) Chloride Level 101 mmol/L (98-107) Carbon Dioxide Level 26 mmol/L (21-32) Anion Gap 11 (6-14) Blood Urea Nitrogen 13 mg/dL (8-26) Creatinine 0.9 mg/dL (0.7-1.3) Estimated GFR (Cockcroft-Gault) 89.3 BUN/Creatinine Ratio 14 (6-20) Glucose Level 218 mg/dL (70-99) Calcium Level 8.6 mg/dL (8.5-10.1) Total Bilirubin 0.5 mg/dL (0.2-1.0) Aspartate Amino Transf (AST/SGOT) 44 U/L (15-37) Alanine Aminotransferase (ALT/SGPT) 63 U/L (16-63) Alkaline Phosphatase 83 U/L (46-116) Total Protein 7.3 g/dL (6.4-8.2) Albumin 2.6 g/dL (3.4-5.0) Albumin/Globulin Ratio 0.6 (1.0-1.7) Assessment and Plan Assessmemt and Plan Problems Medical Problems: (1) COVID-19 virus infection Status: Acute (2) Hypoxia Status: Acute (3) Pneumonia due to 2019 novel coronavirus Status: Acute Comment Review of Relevant I have reviewed the following items jameson (where applicable) has been applied. Labs Laboratory Tests Test 11/07/19 11:06 11/07/19 14:05 11/07/19 14:36 11/07/19 17:14 White Blood Count 7.9 x10^3/uL (4.0-11.0) Red Blood Count 4.94 x10^6/uL (4.30-5.70) Hemoglobin 14.7 g/dL (13.0-17.5) Hematocrit 42.9 % (39.0-53.0) Mean Corpuscular Volume 87 fL (79-100) Mean Corpuscular Hemoglobin 30 pg (25-35) Mean Corpuscular Hemoglobin Concent 34 g/dL (31-37) Red Cell Distribution Width 13.2 % (11.5-14.5) Platelet Count 243 x10^3/uL (140-400) Neutrophils (%) (Auto) 84 % (31-73) Lymphocytes (%) (Auto) 9 % (24-48) Monocytes (%) (Auto) 6 % (0-9) Eosinophils (%) (Auto) 0 % (0-3) Basophils (%) (Auto) 0 % (0-3) Neutrophils # (Auto) 6.6 x10^3/uL (1.8-7.7) Lymphocytes # (Auto) 0.7 x10^3/uL (1.0-4.8) Monocytes # (Auto) 0.5 x10^3/uL (0.0-1.1) Eosinophils # (Auto) 0.0 x10^3/uL (0.0-0.7) Basophils # (Auto) 0.0 x10^3/uL (0.0-0.2) Prothrombin Time 13.0 SEC (11.7-14.0) Prothromb Time International Ratio 1.0 (0.8-1.1) Activated Partial Thromboplast Time 31 SEC (24-38) D-Dimer (Jen) 0.31 ug/mlFEU (0.00-0.50) Sodium Level 137 mmol/L (136-145) Potassium Level 3.4 mmol/L (3.5-5.1) Chloride Level 99 mmol/L (98-107) Carbon Dioxide Level 27 mmol/L (21-32) Anion Gap 11 (6-14) Blood Urea Nitrogen 10 mg/dL (8-26) Creatinine 0.8 mg/dL (0.7-1.3) Estimated GFR (Cockcroft-Gault) 102.3 BUN/Creatinine Ratio 13 (6-20) Glucose Level 155 mg/dL (70-99) Lactic Acid Level 1.3 mmol/L (0.4-2.0) Calcium Level 8.2 mg/dL (8.5-10.1) Total Bilirubin 0.6 mg/dL (0.2-1.0) Aspartate Amino Transf (AST/SGOT) 44 U/L (15-37) Alanine Aminotransferase (ALT/SGPT) 47 U/L (16-63) Alkaline Phosphatase 86 U/L (46-116) Troponin I Quantitative < 0.017 ng/mL (0.000-0.055) Total Protein 7.6 g/dL (6.4-8.2) Albumin 2.9 g/dL (3.4-5.0) Albumin/Globulin Ratio 0.6 (1.0-1.7) Lipase 112 U/L (73-393) Urine Collection Type Unknown Urine Color Yellow Urine Clarity Clear Urine pH 6.5 (<5.0-8.0) Urine Specific Riner 1.025 (1.000-1.030) Urine Protein 100 mg/dL (NEG-TRACE) Urine Glucose (UA) Negative mg/dL (NEG) Urine Ketones (Stick) >=80 mg/dL (NEG) Urine Blood Negative (NEG) Urine Nitrite Negative (NEG) Urine Bilirubin Small (NEG) Urine Urobilinogen Dipstick 1.0 mg/dL (0.2 mg/dL) Urine Leukocyte Esterase Negative (NEG) Urine RBC 1-2 /HPF (0-2) Urine WBC 1-4 /HPF (0-4) Urine Squamous Epithelial Cells Few /LPF Urine Bacteria 0 /HPF (0-FEW) Urine Mucus Slight /LPF Glucose (Fingerstick) 132 mg/dL (70-99) 166 mg/dL (70-99) Test 11/07/19 22:07 11/08/19 03:40 11/08/19 08:23 Glucose (Fingerstick) 135 mg/dL (70-99) 220 mg/dL (70-99) White Blood Count 6.8 x10^3/uL (4.0-11.0) Red Blood Count 4.95 x10^6/uL (4.30-5.70) Hemoglobin 14.9 g/dL (13.0-17.5) Hematocrit 43.7 % (39.0-53.0) Mean Corpuscular Volume 88 fL (79-100) Mean Corpuscular Hemoglobin 30 pg (25-35) Mean Corpuscular Hemoglobin Concent 34 g/dL (31-37) Red Cell Distribution Width 13.3 % (11.5-14.5) Platelet Count 264 x10^3/uL (140-400) Neutrophils (%) (Auto) 88 % (31-73) Lymphocytes (%) (Auto) 8 % (24-48) Monocytes (%) (Auto) 4 % (0-9) Eosinophils (%) (Auto) 0 % (0-3) Basophils (%) (Auto) 0 % (0-3) Neutrophils # (Auto) 6.0 x10^3/uL (1.8-7.7) Lymphocytes # (Auto) 0.6 x10^3/uL (1.0-4.8) Monocytes # (Auto) 0.2 x10^3/uL (0.0-1.1) Eosinophils # (Auto) 0.0 x10^3/uL (0.0-0.7) Basophils # (Auto) 0.0 x10^3/uL (0.0-0.2) Segmented Neutrophils % 91 % (35-66) Band Neutrophils % 5 % (0-9) Lymphocytes % 3 % (24-48) Monocytes % 1 % (0-10) Platelet Estimate Adequate (ADEQUATE) Sodium Level 138 mmol/L (136-145) Potassium Level 4.2 mmol/L (3.5-5.1) Chloride Level 101 mmol/L (98-107) Carbon Dioxide Level 26 mmol/L (21-32) Anion Gap 11 (6-14) Blood Urea Nitrogen 13 mg/dL (8-26) Creatinine 0.9 mg/dL (0.7-1.3) Estimated GFR (Cockcroft-Gault) 89.3 BUN/Creatinine Ratio 14 (6-20) Glucose Level 218 mg/dL (70-99) Calcium Level 8.6 mg/dL (8.5-10.1) Total Bilirubin 0.5 mg/dL (0.2-1.0) Aspartate Amino Transf (AST/SGOT) 44 U/L (15-37) Alanine Aminotransferase (ALT/SGPT) 63 U/L (16-63) Alkaline Phosphatase 83 U/L (46-116) Total Protein 7.3 g/dL (6.4-8.2) Albumin 2.6 g/dL (3.4-5.0) Albumin/Globulin Ratio 0.6 (1.0-1.7) Laboratory Tests Test 11/07/19 11:06 11/07/19 14:05 11/07/19 14:36 11/07/19 17:14 White Blood Count 7.9 x10^3/uL (4.0-11.0) Red Blood Count 4.94 x10^6/uL (4.30-5.70) Hemoglobin 14.7 g/dL (13.0-17.5) Hematocrit 42.9 % (39.0-53.0) Mean Corpuscular Volume 87 fL (79-100) Mean Corpuscular Hemoglobin 30 pg (25-35) Mean Corpuscular Hemoglobin Concent 34 g/dL (31-37) Red Cell Distribution Width 13.2 % (11.5-14.5) Platelet Count 243 x10^3/uL (140-400) Neutrophils (%) (Auto) 84 % (31-73) Lymphocytes (%) (Auto) 9 % (24-48) Monocytes (%) (Auto) 6 % (0-9) Eosinophils (%) (Auto) 0 % (0-3) Basophils (%) (Auto) 0 % (0-3) Neutrophils # (Auto) 6.6 x10^3/uL (1.8-7.7) Lymphocytes # (Auto) 0.7 x10^3/uL (1.0-4.8) Monocytes # (Auto) 0.5 x10^3/uL (0.0-1.1) Eosinophils # (Auto) 0.0 x10^3/uL (0.0-0.7) Basophils # (Auto) 0.0 x10^3/uL (0.0-0.2) Prothrombin Time 13.0 SEC (11.7-14.0) Prothromb Time International Ratio 1.0 (0.8-1.1) Activated Partial Thromboplast Time 31 SEC (24-38) D-Dimer (Jen) 0.31 ug/mlFEU (0.00-0.50) Sodium Level 137 mmol/L (136-145) Potassium Level 3.4 mmol/L (3.5-5.1) Chloride Level 99 mmol/L (98-107) Carbon Dioxide Level 27 mmol/L (21-32) Anion Gap 11 (6-14) Blood Urea Nitrogen 10 mg/dL (8-26) Creatinine 0.8 mg/dL (0.7-1.3) Estimated GFR (Cockcroft-Gault) 102.3 BUN/Creatinine Ratio 13 (6-20) Glucose Level 155 mg/dL (70-99) Lactic Acid Level 1.3 mmol/L (0.4-2.0) Calcium Level 8.2 mg/dL (8.5-10.1) Total Bilirubin 0.6 mg/dL (0.2-1.0) Aspartate Amino Transf (AST/SGOT) 44 U/L (15-37) Alanine Aminotransferase (ALT/SGPT) 47 U/L (16-63) Alkaline Phosphatase 86 U/L (46-116) Troponin I Quantitative < 0.017 ng/mL (0.000-0.055) Total Protein 7.6 g/dL (6.4-8.2) Albumin 2.9 g/dL (3.4-5.0) Albumin/Globulin Ratio 0.6 (1.0-1.7) Lipase 112 U/L (73-393) Urine Collection Type Unknown Urine Color Yellow Urine Clarity Clear Urine pH 6.5 (<5.0-8.0) Urine Specific Riner 1.025 (1.000-1.030) Urine Protein 100 mg/dL (NEG-TRACE) Urine Glucose (UA) Negative mg/dL (NEG) Urine Ketones (Stick) >=80 mg/dL (NEG) Urine Blood Negative (NEG) Urine Nitrite Negative (NEG) Urine Bilirubin Small (NEG) Urine Urobilinogen Dipstick 1.0 mg/dL (0.2 mg/dL) Urine Leukocyte Esterase Negative (NEG) Urine RBC 1-2 /HPF (0-2) Urine WBC 1-4 /HPF (0-4) Urine Squamous Epithelial Cells Few /LPF Urine Bacteria 0 /HPF (0-FEW) Urine Mucus Slight /LPF Glucose (Fingerstick) 132 mg/dL (70-99) 166 mg/dL (70-99) Test 11/07/19 22:07 11/08/19 03:40 11/08/19 08:23 Glucose (Fingerstick) 135 mg/dL (70-99) 220 mg/dL (70-99) White Blood Count 6.8 x10^3/uL (4.0-11.0) Red Blood Count 4.95 x10^6/uL (4.30-5.70) Hemoglobin 14.9 g/dL (13.0-17.5) Hematocrit 43.7 % (39.0-53.0) Mean Corpuscular Volume 88 fL (79-100) Mean Corpuscular Hemoglobin 30 pg (25-35) Mean Corpuscular Hemoglobin Concent 34 g/dL (31-37) Red Cell Distribution Width 13.3 % (11.5-14.5) Platelet Count 264 x10^3/uL (140-400) Neutrophils (%) (Auto) 88 % (31-73) Lymphocytes (%) (Auto) 8 % (24-48) Monocytes (%) (Auto) 4 % (0-9) Eosinophils (%) (Auto) 0 % (0-3) Basophils (%) (Auto) 0 % (0-3) Neutrophils # (Auto) 6.0 x10^3/uL (1.8-7.7) Lymphocytes # (Auto) 0.6 x10^3/uL (1.0-4.8) Monocytes # (Auto) 0.2 x10^3/uL (0.0-1.1) Eosinophils # (Auto) 0.0 x10^3/uL (0.0-0.7) Basophils # (Auto) 0.0 x10^3/uL (0.0-0.2) Segmented Neutrophils % 91 % (35-66) Band Neutrophils % 5 % (0-9) Lymphocytes % 3 % (24-48) Monocytes % 1 % (0-10) Platelet Estimate Adequate (ADEQUATE) Sodium Level 138 mmol/L (136-145) Potassium Level 4.2 mmol/L (3.5-5.1) Chloride Level 101 mmol/L (98-107) Carbon Dioxide Level 26 mmol/L (21-32) Anion Gap 11 (6-14) Blood Urea Nitrogen 13 mg/dL (8-26) Creatinine 0.9 mg/dL (0.7-1.3) Estimated GFR (Cockcroft-Gault) 89.3 BUN/Creatinine Ratio 14 (6-20) Glucose Level 218 mg/dL (70-99) Calcium Level 8.6 mg/dL (8.5-10.1) Total Bilirubin 0.5 mg/dL (0.2-1.0) Aspartate Amino Transf (AST/SGOT) 44 U/L (15-37) Alanine Aminotransferase (ALT/SGPT) 63 U/L (16-63) Alkaline Phosphatase 83 U/L (46-116) Total Protein 7.3 g/dL (6.4-8.2) Albumin 2.6 g/dL (3.4-5.0) Albumin/Globulin Ratio 0.6 (1.0-1.7) Medications Current Medications Ceftriaxone Sodium (Rocephin) 1 gm 1X ONCE IVP Last administered on 11/07/19at 14:00; Start 11/07/19 at 12:45; Stop 11/07/19 at 12:47; Status DC Ondansetron HCl (Zofran) 4 mg PRN Q8HRS PRN IV NAUSEA/VOMITING; Start 11/07/19 at 13:15; Stop 11/08/19 at 13:14 Sodium Chloride 1,000 ml @ 75 mls/hr [id number] IV Last administered on 11/07/19at 18:12; Start 11/07/19 at 13:13; Stop 11/08/19 at 13:12 Enoxaparin Sodium (Lovenox Per Pharmacy Prophylaxis Dosing) 1 each PRN DAILY PRN MC SEE COMMENTS; Start 11/07/19 at 15:30 Zinc Sulfate (Orazinc) 220 mg DAILY PO Last administered on 11/07/19at 18:13; Start 11/07/19 at 16:00 Vitamin B Complex/ Vitamin C (Lien-Anant) 1 tab DAILY PO Last administered on 11/07/19at 18:12; Start 11/07/19 at 16:00 Insulin Human Lispro (HumaLOG) 0-7 UNITS TIDWMEALS SQ ; Start 11/07/19 at 17:00 Dextrose (Dextrose 50%-Water Syringe) 12.5 gm PRN Q15MIN PRN IV SEE COMMENTS; Start 11/07/19 at 15:30 Potassium Chloride (Klor-Con) 40 meq 1X ONCE PO Last administered on 11/07/19at 18:12; Start 11/07/19 at 15:30; Stop 11/07/19 at 15:31; Status DC Enoxaparin Sodium (Lovenox 40mg Syringe) 40 mg BID SQ Last administered on 11/07/19at 21:54; Start 11/07/19 at 21:00 Methylprednisolone Sodium Succinate (SOLU-Medrol 40MG VIAL) 40 mg Q8HRS IV Last administered on 11/08/19at 06:52; Start 11/07/19 at 22:00 Ceftriaxone Sodium (Rocephin) 1 gm Q24H IVP ; Start 11/08/19 at 17:00 Doxycycline Hyclate (Vibra-Tab) 100 mg BID PO Last administered on 11/07/19at 21:53; Start 11/07/19 at 20:00 Insulin Glargine (Lantus Syringe) 12 unit QHS SQ ; Start 11/07/19 at 21:00 Benzonatate (Tessalon Perle) 100 mg [id number] PO Last administered on 11/07/19at 21:53; Start 11/07/19 at 21:00 Guaifenesin/ Codeine Phosphate (Robitussin Ac) 5 ml PRN Q6HRS PRN PO COUGH; Start 11/07/19 at 19:15 Oxycodone/ Acetaminophen (Percocet 5/325) 1 tab PRN Q4HRS PRN PO PAIN Last administered on 11/07/19at 21:54; Start 11/07/19 at 21:30 Acetaminophen (Tylenol) 650 mg PRN Q6HRS PRN PO FEVER > 100.3'F; Start 11/08/19 at 09:30 Active Scripts Active No Active Prescriptions or Reported Medications Vitals/I & O Vital Sign - Last 24 Hours 11/07/19 11/07/19 11/07/19 11/07/19 10:50 11:46 12:16 12:46 Temp 101.0 101.0 Pulse 103 104 104 106 Resp B/P (MAP) 123/73 (90) 119/74 (89) 118/73 (88) 120/74 (89) Pulse Ox 90 90 89 87 O2 Delivery Nasal Cannula Nasal Cannula Nasal Cannula Nasal Cannula O2 Flow Rate 81.0 2.0 2.0 2.0 11/07/19 11/07/19 11/07/19 11/07/19 13:16 13:46 14:46 15:46 Pulse 108 104 108 100 Resp B/P (MAP) 124/77 (93) 122/75 (91) 109/67 (81) 121/78 (92) Pulse Ox 95 89 89 92 O2 Delivery Nasal Cannula Nasal Cannula Nasal Cannula Nasal Cannula O2 Flow Rate 2.0 2.0 2.0 2.0 11/07/19 11/07/19 11/07/19 11/07/19 18:06 20:00 21:54 22:54 Temp 98.4 98.4 Pulse 84 Resp 18 B/P (MAP) 102/71 (81) Pulse Ox 93 93 O2 Delivery Nasal Cannula Nasal Cannula Nasal Cannula O2 Flow Rate 3.0 4.0 3.0 2.0 11/07/19 11/08/19 11/08/19 11/08/19 23:00 03:00 04:00 04:15 Temp 98.0 98.2 98.0 98.2 Pulse 86 83 Resp 18 B/P (MAP) 111/67 (82) 110/62 (78) Pulse Ox 91 94 83 92 O2 Delivery Nasal Cannula Nasal Cannula Nasal Cannula Venturi Mask O2 Flow Rate 3.0 3.0 4.0 15.0 11/08/19 07:30 Temp 99.6 99.6 Pulse 87 Resp 22 B/P (MAP) 117/65 (82) Pulse Ox 85 O2 Delivery Venturi Mask O2 Flow Rate 15.0 Intake and Output 11/07/19 11/07/19 11/08/19 15:00 23:00 07:00 Intake Total 600 ml 750 ml Output Total 200 ml 200 ml Balance 400 ml 550 ml Justicifation of Admission Dx: Justifications for Admission: Justification of Admission Dx: Yes Comminuty Aquired Pneumonia: Hypoxemia ANDRES VALDOVINOS MD Nov 08, 2019 10:25
[2019-11-08] MEDS: cefTRIAXone IV Push 1 GM VIAL. IVP SCH (10:40)
[2019-11-08] MEDS: ACETAMINOPHEN 325 MG TABLET. PO PRN (10:41)
[2019-11-08] MEDS: guaiFENesin/CODEINE 100mg/10mg 5 ML LIQUID PO PRN (10:41)
[2019-11-08] MEDS: DOXYCYCLINE HYCLATE 100 MG TABLET PO SCH ×2 (10:41→21:50)
[2019-11-08] MEDS: ZINC SULFATE 220 MG CAPSULE. PO SCH (10:41)
[2019-11-08] MEDS: ENOXAPARIN 40 MG/0.4 ML SYRINGE. SQ SCH ×2 (10:41→21:50)
[2019-11-08] MEDS: BENZONATATE 100 MG CAPSULE. PO SCH ×3 (10:41→21:50)
[2019-11-08] MEDS: FOLIC/VIT B COMP W-C (RENAL) TABLET. PO SCH (10:42)
--- NOTE | 2019-11-08 11:49 | NUR ---
report called to Radha in the ICU and the pts family all notified of the pts transfer. Pt transferred to Room 110 at approx 1150.
[2019-11-08] MEDS: STERILE WATER for RESP 1,000 ML BAG. INH PRN ×2 (12:45→18:03)
[2019-11-08] MEDS: oxyCODONE/APAP 5/325 1 TAB TABLET PO PRN (12:49)
--- NOTE | 2019-11-08 12:50 | NUR ---
Pt transferred via wheelchair, RN to rm 110 at approx 1150 for increased 02 requirements- placed on Vapotherm at 40L, 100% fi02. Pt does not appear to be in any distress, all VSS, no complaints of pain. Pt able to nod "yes" when RN asked if he understands POC, need to be in ICU. Placed in airborne precautions, seen with PPE on. Meal tray provided, resting with call light, will monitor
[2019-11-08] MEDS: DEXMEDETOMIDINE 400 MCG in IV NORMAL SALINE 100ML 96 ML IV PRN (20:13)
[2019-11-08] MEDS: INSULIN GLARGINE SYRINGE. SQ SCH (21:52)
[2019-11-09] VITALS (25 sets, daily range): BP systolic 98–143; BP diastolic 55–72
[2019-11-09] MEDS: methylPREDNISolone SOD SUCC PF 40 MG/ML VIAL. IV SCH ×3 (05:46→21:54)
[2019-11-09 08:02] LABS: BASE EXCESS COOX -1 mmol/L (-3-3); HCO3 COOX 22 mmol/L (21-28); OXYHEMOGLOBIN 89.2 %; PCO2 COOX 32 mmHg (35-46); PO2 COOX 55 mmHg (75-108); SAT O2 COOX 89 % (92-99)
[2019-11-09] MEDS: ENOXAPARIN 40 MG/0.4 ML SYRINGE. SQ SCH ×2 (08:37→21:55)
[2019-11-09] MEDS: ZINC SULFATE 220 MG CAPSULE. PO SCH (08:38)
[2019-11-09] MEDS: FOLIC/VIT B COMP W-C (RENAL) TABLET. PO SCH (08:38)
[2019-11-09] MEDS: DOXYCYCLINE HYCLATE 100 MG TABLET PO SCH ×2 (08:38→21:00)
[2019-11-09 08:52] LABS: CALCIUM 8.3 mg/dL (8.5-10.1); CREATININE 0.7 mg/dL (0.7-1.3); GFR 119.4
[2019-11-09] MEDS: BENZONATATE 100 MG CAPSULE. PO SCH ×3 (09:09→21:55)
[2019-11-09] MEDS: INSULIN LISPRO 300 UNITS/3 ML VIAL. SQ SCH ×4 (09:09→21:54)
--- NOTE | 2019-11-09 09:37 | PDOC ---
PULMONARY PROGRESS NOTES DATE: 11/09/19 TIME: 09:33 Subjective a-febrile overnight, remains on Vapotherm Mild SOB , no increase in cough Vitals Vital Signs Date Time Temp Pulse Resp B/P (MAP) Pulse Ox O2 Delivery O2 Flow Rate FiO2 11/09/19 09:00 70 24 115/67 (83) 90 Vapotherm 30.0 11/09/19 08:00 98.5 98.5 Comments Visual exam preformed as pt. seen during COVID-19 pandemic Vapotherm tachyapenic RRR No rash no edema Labs Laboratory Tests Test 11/07/19 11:06 11/07/19 14:05 11/07/19 14:36 11/07/19 17:14 White Blood Count 7.9 x10^3/uL (4.0-11.0) Red Blood Count 4.94 x10^6/uL (4.30-5.70) Hemoglobin 14.7 g/dL (13.0-17.5) Hematocrit 42.9 % (39.0-53.0) Mean Corpuscular Volume 87 fL (79-100) Mean Corpuscular Hemoglobin 30 pg (25-35) Mean Corpuscular Hemoglobin Concent 34 g/dL (31-37) Red Cell Distribution Width 13.2 % (11.5-14.5) Platelet Count 243 x10^3/uL (140-400) Neutrophils (%) (Auto) 84 % (31-73) Lymphocytes (%) (Auto) 9 % (24-48) Monocytes (%) (Auto) 6 % (0-9) Eosinophils (%) (Auto) 0 % (0-3) Basophils (%) (Auto) 0 % (0-3) Neutrophils # (Auto) 6.6 x10^3/uL (1.8-7.7) Lymphocytes # (Auto) 0.7 x10^3/uL (1.0-4.8) Monocytes # (Auto) 0.5 x10^3/uL (0.0-1.1) Eosinophils # (Auto) 0.0 x10^3/uL (0.0-0.7) Basophils # (Auto) 0.0 x10^3/uL (0.0-0.2) Prothrombin Time 13.0 SEC (11.7-14.0) Prothromb Time International Ratio 1.0 (0.8-1.1) Activated Partial Thromboplast Time 31 SEC (24-38) D-Dimer (Jen) 0.31 ug/mlFEU (0.00-0.50) Sodium Level 137 mmol/L (136-145) Potassium Level 3.4 mmol/L (3.5-5.1) Chloride Level 99 mmol/L (98-107) Carbon Dioxide Level 27 mmol/L (21-32) Anion Gap 11 (6-14) Blood Urea Nitrogen 10 mg/dL (8-26) Creatinine 0.8 mg/dL (0.7-1.3) Estimated GFR (Cockcroft-Gault) 102.3 BUN/Creatinine Ratio 13 (6-20) Glucose Level 155 mg/dL (70-99) Lactic Acid Level 1.3 mmol/L (0.4-2.0) Calcium Level 8.2 mg/dL (8.5-10.1) Total Bilirubin 0.6 mg/dL (0.2-1.0) Aspartate Amino Transf (AST/SGOT) 44 U/L (15-37) Alanine Aminotransferase (ALT/SGPT) 47 U/L (16-63) Alkaline Phosphatase 86 U/L (46-116) Troponin I Quantitative < 0.017 ng/mL (0.000-0.055) Total Protein 7.6 g/dL (6.4-8.2) Albumin 2.9 g/dL (3.4-5.0) Albumin/Globulin Ratio 0.6 (1.0-1.7) Lipase 112 U/L (73-393) Urine Collection Type Unknown Urine Color Yellow Urine Clarity Clear Urine pH 6.5 (<5.0-8.0) Urine Specific [place] 1.025 (1.000-1.030) Urine Protein 100 mg/dL (NEG-TRACE) Urine Glucose (UA) Negative mg/dL (NEG) Urine Ketones (Stick) >=80 mg/dL (NEG) Urine Blood Negative (NEG) Urine Nitrite Negative (NEG) Urine Bilirubin Small (NEG) Urine Urobilinogen Dipstick 1.0 mg/dL (0.2 mg/dL) Urine Leukocyte Esterase Negative (NEG) Urine RBC 1-2 /HPF (0-2) Urine WBC 1-4 /HPF (0-4) Urine Squamous Epithelial Cells Few /LPF Urine Bacteria 0 /HPF (0-FEW) Urine Mucus Slight /LPF Glucose (Fingerstick) 132 mg/dL (70-99) 166 mg/dL (70-99) Test 11/07/19 22:07 11/08/19 03:40 11/08/19 08:23 11/08/19 17:11 Glucose (Fingerstick) 135 mg/dL (70-99) 220 mg/dL (70-99) 306 mg/dL (70-99) White Blood Count 6.8 x10^3/uL (4.0-11.0) Red Blood Count 4.95 x10^6/uL (4.30-5.70) Hemoglobin 14.9 g/dL (13.0-17.5) Hematocrit 43.7 % (39.0-53.0) Mean Corpuscular Volume 88 fL (79-100) Mean Corpuscular Hemoglobin 30 pg (25-35) Mean Corpuscular Hemoglobin Concent 34 g/dL (31-37) Red Cell Distribution Width 13.3 % (11.5-14.5) Platelet Count 264 x10^3/uL (140-400) Neutrophils (%) (Auto) 88 % (31-73) Lymphocytes (%) (Auto) 8 % (24-48) Monocytes (%) (Auto) 4 % (0-9) Eosinophils (%) (Auto) 0 % (0-3) Basophils (%) (Auto) 0 % (0-3) Neutrophils # (Auto) 6.0 x10^3/uL (1.8-7.7) Lymphocytes # (Auto) 0.6 x10^3/uL (1.0-4.8) Monocytes # (Auto) 0.2 x10^3/uL (0.0-1.1) Eosinophils # (Auto) 0.0 x10^3/uL (0.0-0.7) Basophils # (Auto) 0.0 x10^3/uL (0.0-0.2) Segmented Neutrophils % 91 % (35-66) Band Neutrophils % 5 % (0-9) Lymphocytes % 3 % (24-48) Monocytes % 1 % (0-10) Platelet Estimate Adequate (ADEQUATE) Sodium Level 138 mmol/L (136-145) Potassium Level 4.2 mmol/L (3.5-5.1) Chloride Level 101 mmol/L (98-107) Carbon Dioxide Level 26 mmol/L (21-32) Anion Gap 11 (6-14) Blood Urea Nitrogen 13 mg/dL (8-26) Creatinine 0.9 mg/dL (0.7-1.3) Estimated GFR (Cockcroft-Gault) 89.3 BUN/Creatinine Ratio 14 (6-20) Glucose Level 218 mg/dL (70-99) Calcium Level 8.6 mg/dL (8.5-10.1) Total Bilirubin 0.5 mg/dL (0.2-1.0) Aspartate Amino Transf (AST/SGOT) 44 U/L (15-37) Alanine Aminotransferase (ALT/SGPT) 63 U/L (16-63) Alkaline Phosphatase 83 U/L (46-116) Total Protein 7.3 g/dL (6.4-8.2) Albumin 2.6 g/dL (3.4-5.0) Albumin/Globulin Ratio 0.6 (1.0-1.7) Test 11/08/19 22:10 11/09/19 07:30 11/09/19 08:00 11/09/19 08:46 Glucose (Fingerstick) 246 mg/dL (70-99) 260 mg/dL (70-99) O2 Saturation 89 % (92-99) Arterial Blood pH 7.45 (7.35-7.45) Arterial Blood pCO2 at Patient Temp 32 mmHg (35-46) Arterial Blood pO2 at Patient Temp 55 mmHg (75-108) Arterial Blood HCO3 22 mmol/L (21-28) Arterial Blood Base Excess -1 mmol/L (-3-3) Oxyhemoglobin 89.2 % Methemoglobin 0.0 % (0.0-1.9) Carbon Monoxide, Quantitative 0.1 % (0.0-1.9) FiO2 100 Sodium Level 138 mmol/L (136-145) Potassium Level 4.0 mmol/L (3.5-5.1) Chloride Level 104 mmol/L (98-107) Carbon Dioxide Level 26 mmol/L (21-32) Anion Gap 8 (6-14) Blood Urea Nitrogen 16 mg/dL (8-26) Creatinine 0.7 mg/dL (0.7-1.3) Estimated GFR (Cockcroft-Gault) 119.4 Glucose Level 269 mg/dL (70-99) Calcium Level 8.3 mg/dL (8.5-10.1) Laboratory Tests Test 11/08/19 17:11 11/08/19 22:10 11/09/19 07:30 11/09/19 08:00 Glucose (Fingerstick) 306 mg/dL (70-99) 246 mg/dL (70-99) O2 Saturation 89 % (92-99) Arterial Blood pH 7.45 (7.35-7.45) Arterial Blood pCO2 at Patient Temp 32 mmHg (35-46) Arterial Blood pO2 at Patient Temp 55 mmHg (75-108) Arterial Blood HCO3 22 mmol/L (21-28) Arterial Blood Base Excess -1 mmol/L (-3-3) Oxyhemoglobin 89.2 % Methemoglobin 0.0 % (0.0-1.9) Carbon Monoxide, Quantitative 0.1 % (0.0-1.9) FiO2 100 Sodium Level 138 mmol/L (136-145) Potassium Level 4.0 mmol/L (3.5-5.1) Chloride Level 104 mmol/L (98-107) Carbon Dioxide Level 26 mmol/L (21-32) Anion Gap 8 (6-14) Blood Urea Nitrogen 16 mg/dL (8-26) Creatinine 0.7 mg/dL (0.7-1.3) Estimated GFR (Cockcroft-Gault) 119.4 Glucose Level 269 mg/dL (70-99) Calcium Level 8.3 mg/dL (8.5-10.1) Test 11/09/19 08:46 Glucose (Fingerstick) 260 mg/dL (70-99) Medications Active Scripts Medications Dose Route/Sig Max Daily Dose Days Date Category No Active Prescriptions or Reported Medications Rx Comments CXR IMPRESSION: Acute alveolar infiltrates worse on the right Impression . IMPRESSION: 1. Acute hypoxic respiratory failure secondary to COVID-19 pneumonia- worsening 2. Abnormal chest x-ray with faint bilateral patchy infiltrates favoring COVID- 19 pneumonia. 3. No significant tobacco history. 4. Type 2 diabetes. 5. Fever -improved Plan . RECOMMENDATIONS: 1. Continue present oxygen to keep saturation 92 and above, requiring Vapotherm at 30 L and 100%, was unable to tolerate flow at 40 L, ABG reviewed and CXR reviewed 2. cont. antibiotic 3. cont. steroids. 4. DVT prophylaxis with Lovenox. 5. S/P convalescent plasma on 11/08/2019 6. Discussed with RN and RT 7. Continue to monitor clinical course Total CC time 30 minutes DALLIN RICHEY MD Nov 09, 2019 09:37
[2019-11-09] MEDS: STERILE WATER for RESP 1,000 ML BAG. INH PRN (11:26)
--- NOTE | 2019-11-09 11:40 | PDOC ---
[facility] PROGRESS NOTE Date of Service DOS: DATE: 11/09/19 TIME: 11:36 Chief Complaint Chief Complaint COVID 19 acute hypoxia pneumonia sepsis moderate malnutrition Dm2, will do lantus and sliding scale VTE Prophylaxis Ordered VTE Prophylaxis Devices: No VTE Pharmacological Prophylaxi: Yes admit to COVID unit, he was positive from oct 29, will isolate, seen with PPE, PULM consult, lovenox, steroid, abx, antitussives, Justicifation of Admission Dx: Justicifation of Admission Dx: Justifications for Admission: Justification of Admission Dx: Yes Comminuty Aquired Pneumonia: Hypoxemia History of Present Illness History of Present Illness 11/09/2019 Patient seen and examined Resting comfortably On vapotherm Received Plasma 11/07 Discussed with RN Charts reviewed History of Present Illness History of Present Illness Mr. Brown is a 48 year old male admit with worsening symptoms of cough, fever, trouble breathing and generalized weakness. he appears listless and is lethargic, Patient has been sick for about 10 days, he was tested positive for COVID-19 on October 29 at an outside facility. admit from ER fro new hypoxia and trouble breathing, Patient denies any chest pain, no abdominal pain, no nausea vomiting. Past Medical History Cardiovascular: Hyperlipidemia Pulmonary: No pertinent hx CENTRAL NERVOUS SYSTEM: Other GI: No pertinent hx Heme/Onc: No pertinent hx Hepatobiliary: No pertinent hx Psych: No pertinent hx Musculoskeletal: low back pain, Osteoarthritis Rheumatologic: No pertinent hx Infectious disease: No pertinent hx Renal/: No pertinent hx Endocrine: Diabetes Past Surgical History Past Surgical History: Other Family History Family History: Diabetes Social History Smoke: No ALCOHOL: none Drugs: None Vitals/I&O Vitals/I&O: Vital Signs Date Time Temp Pulse Resp B/P (MAP) Pulse Ox O2 Delivery O2 Flow Rate FiO2 11/09/19 11:20 92 vapotherm 40.0 11/09/19 10:00 88 35 104/57 (73) 11/09/19 08:00 98.5 98.5 I & O 11/08/19 11/08/19 11/09/19 15:00 23:00 07:00 Intake Total 620 ml 685 ml Output Total 0 ml 770 ml 630 ml Balance 0 ml -150 ml 55 ml Physical Exam General: Alert, Cooperative, No acute distress Extremities: No edema Skin: No breakdown Labs Labs: Laboratory Tests Test 11/08/19 17:11 11/08/19 22:10 11/09/19 07:30 11/09/19 08:00 Glucose (Fingerstick) 306 mg/dL (70-99) 246 mg/dL (70-99) O2 Saturation 89 % (92-99) Arterial Blood pH 7.45 (7.35-7.45) Arterial Blood pCO2 at Patient Temp 32 mmHg (35-46) Arterial Blood pO2 at Patient Temp 55 mmHg (75-108) Arterial Blood HCO3 22 mmol/L (21-28) Arterial Blood Base Excess -1 mmol/L (-3-3) Oxyhemoglobin 89.2 % Methemoglobin 0.0 % (0.0-1.9) Carbon Monoxide, Quantitative 0.1 % (0.0-1.9) FiO2 100 Sodium Level 138 mmol/L (136-145) Potassium Level 4.0 mmol/L (3.5-5.1) Chloride Level 104 mmol/L (98-107) Carbon Dioxide Level 26 mmol/L (21-32) Anion Gap 8 (6-14) Blood Urea Nitrogen 16 mg/dL (8-26) Creatinine 0.7 mg/dL (0.7-1.3) Estimated GFR (Cockcroft-Gault) 119.4 Glucose Level 269 mg/dL (70-99) Calcium Level 8.3 mg/dL (8.5-10.1) Test 11/09/19 08:46 11/09/19 11:25 Glucose (Fingerstick) 260 mg/dL (70-99) 263 mg/dL (70-99) Assessment and Plan Assessmemt and Plan Problems Medical Problems: (1) COVID-19 virus infection Status: Acute (2) Hypoxia Status: Acute (3) Pneumonia due to 2019 novel coronavirus Status: Acute Assessment COVID 19 acute hypoxia pneumonia sepsis moderate malnutrition Dm2 Plan Respiratory isolation IV steroids IV antibiotics DVT prophylaxis Multivitamins with minerals Consult ID Full code Comment Review of Relevant I have reviewed the following items jameson (where applicable) has been applied. Medications: Current Medications Medications (Trade) Dose Ordered Sig/Amy Route PRN Reason Start Time Stop Time Status Last Admin Dose Admin Ceftriaxone Sodium (Rocephin) 1 gm Q24H IVP 8/12/20 17:00 11/08/19 10:40 Sterile Water (WATER for RESP) 1,000 ml CONT PRN INH VIA VAPOTHERM DEVICE 11/08/19 12:45 11/09/19 11:26 Dexmedetomidine HCl 400 mcg/ Sodium Chloride 100 ml @ 0 mls/hr CONT PRN IV anxiety 11/08/19 19:00 11/08/19 20:13 Justicifation of Admission Dx: Justifications for Admission: Justification of Admission Dx: Yes Comminuty Aquired Pneumonia: Hypoxemia MIKE JAIME III DO Nov 09, 2019 11:40
[2019-11-09] MEDS: MULTIVITAMIN with MINERAL TABLET. PO SCH (13:11)
--- NOTE | 2019-11-09 13:39 | NUR ---
SS following for discharge planning. SS reviewed pt chart and discussed with pt RN. Pt is from home with spouse and is currently on Vapotherm. Pt on IV Rocephin. COVID19 positive. SS will continue to follow for discharge planning.
[2019-11-09] MEDS: cefTRIAXone IV Push 1 GM VIAL. IVP SCH (16:39)
[2019-11-09] MEDS: IV NORMAL SALINE 1000ML BAG 1,000 ML IV SCH (18:20)
[2019-11-09] MEDS: oxyCODONE/APAP 5/325 1 TAB TABLET PO PRN (20:10)
[2019-11-09] MEDS: DEXMEDETOMIDINE 400 MCG in IV NORMAL SALINE 100ML 96 ML IV PRN (20:10)
[2019-11-09] MEDS: LACTOBACILLUS RHAMNOSUS GG 1 CAPSULE. PO SCH (21:00)
[2019-11-09] MEDS: INSULIN GLARGINE SYRINGE. SQ SCH (21:54)
[2019-11-10] VITALS (23 sets, daily range): BP systolic 100–127; BP diastolic 58–81
[2019-11-10] MEDS: IV NORMAL SALINE 1000ML BAG 1,000 ML IV SCH ×2 (03:56→21:30)
[2019-11-10 04:27] LABS: BASO % 0 % (0-3); EOS % 0 % (0-3); HEMATOCRIT 40.8 % (39.0-53.0); HEMOGLOBIN 13.5 g/dL (13.0-17.5); LYMPH # 0.6 x10^3/uL (1.0-4.8); LYMPH % 4 % (24-48); MEAN CORPUSCULAR HEMOGLOBIN 29 pg (25-35); MEAN CORPUSCULAR HGB CONC 33 g/dL (31-37); MEAN CORPUSCULAR VOLUME 88 fL (79-100); MONO # 0.8 x10^3/uL (0.0-1.1); MONO % 5 % (0-9); NEUT # 13.1 x10^3/uL (1.8-7.7); NEUT % 90 % (31-73); PLATELET COUNT 364 x10^3/uL (140-400); RED BLOOD COUNT 4.62 x10^6/uL (4.30-5.70); RED CELL DISTRIBUTION WIDTH 12.9 % (11.5-14.5); WHITE BLOOD COUNT 14.5 x10^3/uL (4.0-11.0)
[2019-11-10] MEDS: STERILE WATER for RESP 1,000 ML BAG. INH PRN ×2 (04:30→13:43)
[2019-11-10] MEDS: methylPREDNISolone SOD SUCC PF 40 MG/ML VIAL. IV SCH ×3 (05:52→20:48)
[2019-11-10] MEDS: FOLIC/VIT B COMP W-C (RENAL) TABLET. PO SCH (08:38)
[2019-11-10] MEDS: ENOXAPARIN 40 MG/0.4 ML SYRINGE. SQ SCH ×2 (08:38→20:49)
[2019-11-10] MEDS: MULTIVITAMIN with MINERAL TABLET. PO SCH (08:38)
[2019-11-10] MEDS: ZINC SULFATE 220 MG CAPSULE. PO SCH (08:38)
[2019-11-10] MEDS: LACTOBACILLUS RHAMNOSUS GG 1 CAPSULE. PO SCH ×2 (08:38→20:48)
[2019-11-10] MEDS: DOXYCYCLINE HYCLATE 100 MG TABLET PO SCH ×2 (08:38→20:48)
[2019-11-10] MEDS: INSULIN LISPRO 300 UNITS/3 ML VIAL. SQ SCH ×4 (08:39→21:13)
--- NOTE | 2019-11-10 09:02 | PDOC ---
PULMONARY PROGRESS NOTES DATE: 11/10/19 TIME: 08:58 Subjective low grade fever overnight, remains on Vapotherm 40 L and 100% no SOB or CP or increased cough Vitals Vital Signs Date Time Temp Pulse Resp B/P (MAP) Pulse Ox O2 Delivery O2 Flow Rate FiO2 11/10/19 06:00 52 24 100/60 (73) 92 High Flow Nasal Cannula 40.0 11/10/19 04:00 99.0 99.0 Comments Visual exam preformed as pt. seen during COVID- pandemic Vapotherm tachyapenic RRR No rash no edema Labs Laboratory Tests Test 11/08/19 17:11 11/08/19 22:10 11/09/19 07:30 11/09/19 08:00 Glucose (Fingerstick) 306 mg/dL (70-99) 246 mg/dL (70-99) O2 Saturation 89 % (92-99) Arterial Blood pH 7.45 (7.35-7.45) Arterial Blood pCO2 at Patient Temp 32 mmHg (35-46) Arterial Blood pO2 at Patient Temp 55 mmHg (75-108) Arterial Blood HCO3 22 mmol/L (21-28) Arterial Blood Base Excess -1 mmol/L (-3-3) Oxyhemoglobin 89.2 % Methemoglobin 0.0 % (0.0-1.9) Carbon Monoxide, Quantitative 0.1 % (0.0-1.9) FiO2 100 Sodium Level 138 mmol/L (136-145) Potassium Level 4.0 mmol/L (3.5-5.1) Chloride Level 104 mmol/L (98-107) Carbon Dioxide Level 26 mmol/L (21-32) Anion Gap 8 (6-14) Blood Urea Nitrogen 16 mg/dL (8-26) Creatinine 0.7 mg/dL (0.7-1.3) Estimated GFR (Cockcroft-Gault) 119.4 Glucose Level 269 mg/dL (70-99) Calcium Level 8.3 mg/dL (8.5-10.1) Test 11/09/19 08:46 11/09/19 11:25 11/09/19 16:53 11/09/19 21:01 Glucose (Fingerstick) 260 mg/dL (70-99) 263 mg/dL (70-99) 263 mg/dL (70-99) 242 mg/dL (70-99) Test 11/10/19 03:30 11/10/19 07:47 White Blood Count 14.5 x10^3/uL (4.0-11.0) Red Blood Count 4.62 x10^6/uL (4.30-5.70) Hemoglobin 13.5 g/dL (13.0-17.5) Hematocrit 40.8 % (39.0-53.0) Mean Corpuscular Volume 88 fL (79-100) Mean Corpuscular Hemoglobin 29 pg (25-35) Mean Corpuscular Hemoglobin Concent 33 g/dL (31-37) Red Cell Distribution Width 12.9 % (11.5-14.5) Platelet Count 364 x10^3/uL (140-400) Neutrophils (%) (Auto) 90 % (31-73) Lymphocytes (%) (Auto) 4 % (24-48) Monocytes (%) (Auto) 5 % (0-9) Eosinophils (%) (Auto) 0 % (0-3) Basophils (%) (Auto) 0 % (0-3) Neutrophils # (Auto) 13.1 x10^3/uL (1.8-7.7) Lymphocytes # (Auto) 0.6 x10^3/uL (1.0-4.8) Monocytes # (Auto) 0.8 x10^3/uL (0.0-1.1) Eosinophils # (Auto) 0.0 x10^3/uL (0.0-0.7) Basophils # (Auto) 0.0 x10^3/uL (0.0-0.2) Glucose (Fingerstick) 216 mg/dL (70-99) Laboratory Tests Test 11/09/19 11:25 11/09/19 16:53 11/09/19 21:01 11/10/19 03:30 Glucose (Fingerstick) 263 mg/dL (70-99) 263 mg/dL (70-99) 242 mg/dL (70-99) White Blood Count 14.5 x10^3/uL (4.0-11.0) Red Blood Count 4.62 x10^6/uL (4.30-5.70) Hemoglobin 13.5 g/dL (13.0-17.5) Hematocrit 40.8 % (39.0-53.0) Mean Corpuscular Volume 88 fL (79-100) Mean Corpuscular Hemoglobin 29 pg (25-35) Mean Corpuscular Hemoglobin Concent 33 g/dL (31-37) Red Cell Distribution Width 12.9 % (11.5-14.5) Platelet Count 364 x10^3/uL (140-400) Neutrophils (%) (Auto) 90 % (31-73) Lymphocytes (%) (Auto) 4 % (24-48) Monocytes (%) (Auto) 5 % (0-9) Eosinophils (%) (Auto) 0 % (0-3) Basophils (%) (Auto) 0 % (0-3) Neutrophils # (Auto) 13.1 x10^3/uL (1.8-7.7) Lymphocytes # (Auto) 0.6 x10^3/uL (1.0-4.8) Monocytes # (Auto) 0.8 x10^3/uL (0.0-1.1) Eosinophils # (Auto) 0.0 x10^3/uL (0.0-0.7) Basophils # (Auto) 0.0 x10^3/uL (0.0-0.2) Test 11/10/19 07:47 Glucose (Fingerstick) 216 mg/dL (70-99) Medications Active Scripts Medications Dose Route/Sig Max Daily Dose Days Date Category No Active Prescriptions or Reported Medications Rx Comments CXR IMPRESSION: Acute alveolar infiltrates worse on the right Impression . IMPRESSION: 1. Acute hypoxic respiratory failure secondary to COVID-19 pneumonia- ongoing 2. Abnormal chest x-ray with faint bilateral patchy infiltrates favoring COVID- 19 pneumonia. 3. No significant tobacco history. 4. Type 2 diabetes. 5. Fever -improved Plan . RECOMMENDATIONS: 1. Continue present oxygen to keep saturation 92 and above, requiring Vapotherm at 40 L and 100%, now on precedex to help tolerate increased flow 2. Cont. antibiotics 3. Cont. steroids 4. DVT prophylaxis with Lovenox. 5. S/P convalescent plasma on 11/08/2019 6. Discussed with RN and RT 7. Continue to monitor clinical course TOTAL CC time 30 min DALLIN RICHEY MD Nov 10, 2019 09:02
[2019-11-10 09:34] LABS: ALBUMIN 2.5 g/dL (3.4-5.0); DIRECT BILIRUBIN 0.2 mg/dL (0.0-0.2); TOTAL BILIRUBIN 0.5 mg/dL (0.2-1.0); TOTAL PROTEIN 5.9 g/dL (6.4-8.2)
--- NOTE | 2019-11-10 09:45 | CONS ---
DATE OF CONSULTATION: 11/10/2019 REFERRING PHYSICIAN: Dr. Blood. REASON FOR CONSULTATION: COVID-19 infection. HISTORY OF PRESENT ILLNESS: A 48-year-old male with history of diabetes, presented to the ER on 11/07/2019 with cough, fever, shortness of breath and generalized weakness. The patient felt sick about a week prior to admission. He was tested positive for COVID-19 on 10/30/2019 at an outside facility. The patient continued to have worsening breathing, so he presented to ER. His white count was 7.9, creatinine of 0.8, lactate of 1.3, AST 44, ALT 47, bilirubin normal, lipase 112, fever of 101. Chest x-ray showed patchy bilateral infiltrates. He received a dose of ceftriaxone and doxycycline. He was admitted to ICU for further evaluation and treatment. The patient received convalescent plasma on 11/08. ID consult has been requested for further assistance. Today, the patient states he feels a little better. He still remains on Vapotherm. Denies any headache, fevers, chills, nausea, vomiting, diarrhea. Appetite is improving, though slowly. No chest pain, worsening shortness of breath or cough. Denies any symptoms, diarrhea, rash or joint pain. PAST MEDICAL HISTORY: Diabetes, hyperlipidemia, chronic low back pain, osteoarthritis. PAST SURGICAL HISTORY: As per HPI. FAMILY HISTORY: Diabetes. SOCIAL HISTORY: Denies smoking, ETOH or illicit drug use. CURRENT MEDICATIONS: Ceftriaxone, doxycycline, zinc, insulin, methylprednisolone, enoxaparin. REVIEW OF SYSTEMS: Negative except for above in HPI. PHYSICAL EXAMINATION: VITAL SIGNS: Temperature 98.1, pulse 85, respiratory rate 18, blood pressure 109/69, oxygen saturation 90% on 40% Vapotherm high flow nasal cannula. GENERAL: Alert, oriented, awake, cooperative male, on Vapotherm, in no acute distress, eating breakfast. HEENT: Normocephalic, atraumatic, anicteric. No thrush. Oral mucosa moist. NECK: Supple. No JVD. LUNGS: Clear bilaterally except for decreased breath sounds at the bases. No wheezing. No accessory muscle use. HEART: S1, S2. No gallops or murmurs. ABDOMEN: Soft, nontender, nondistended. EXTREMITIES: No edema, no cyanosis. DERMATOLOGIC: Warm, dry. No generalized rash. NEUROLOGIC: Alert and oriented x 3, grossly nonfocal. PSYCHIATRIC: Cooperative, calm. LABORATORY DATA: WBC 14.5, hemoglobin 13.5, hematocrit 40.8, platelets 364, lymphocyte count 4. Sodium 138, potassium 4.0, chloride 104, bicarbonate 26, BUN 16, creatinine 0.7, glucose 269. Normal lactate. Calcium 8.3, AST 44, ALT 63, alkaline phosphatase 83, albumin 2.6. UA, small bilirubin, otherwise negative. MICROBIOLOGY: Blood culture negative 11/06. DIAGNOSTICS: Chest x-ray; acute alveolar infiltrate, worse on the right. IMPRESSION: 1. COVID-19 respiratory infection. 2. Fever, likely from above. 3. Pulmonary infiltrates, likely from COVID-19 infection. 4. Leukocytosis, on steroids. 5. Type 2 diabetes. 6. Hyperlipidemia. RECOMMENDATIONS: 1. Continue supportive care. 2. Continue steroids per primary. 3. Continue ceftriaxone and doxycycline. 4. Status post convalescent plasma. 5. Discussed with the patient about investigational therapy, remdesivir. The patient is agreeable with the treatment.Sideeffects of Remdesivir discussed. 6. Will add labs to this am labs,Monitor labs closely. Critically ill. Discussed with nursing staff. Thank you for allowing me to participate in this patient's care. If you have any questions, do not hesitate to contact me. Total time spent CCT 40 minutes. YAJAIRA JACKSON MD DR: JUAN F/guera JOB#: [id number] / [id number] CECELIA
[2019-11-10] MEDS ORDERED: REMDESIVIR LOAD in IV NORMAL SALINE 250ML TV IV ONE (10:00)
[2019-11-10] MEDS: BENZONATATE 100 MG CAPSULE. PO SCH ×3 (10:16→20:48)
--- NOTE | 2019-11-10 10:27 | PDOC ---
[facility] PROGRESS NOTE Date of Service DOS: DATE: 11/10/19 TIME: 10:25 Chief Complaint Chief Complaint COVID 19 acute hypoxia pneumonia sepsis moderate malnutrition Dm2, VTE Prophylaxis Ordered VTE Prophylaxis Devices: No VTE Pharmacological Prophylaxi: Yes admit to COVID unit, he was positive from oct 29, , seen with PPE, PULM consult, lovenox, steroid, abx, antitussives, Justicifation of Admission Dx: Justicifation of Admission Dx: Justifications for Admission: Justification of Admission Dx: Yes Comminuty Aquired Pneumonia: Hypoxemia History of Present Illness History of Present Illness 11/10/2019 Patient is seen and examined Patient is sitting up and resting comfortably on Vapotherm Discussed with RN Charts reviewed 11/09/2019 Patient seen and examined Resting comfortably On vapotherm Received Plasma 11/07 Discussed with RN Charts reviewed History of Present Illness History of Present Illness Mr. Brown is a 48 year old male admit with worsening symptoms of cough, fever, trouble breathing and generalized weakness. he appears listless and is lethargic, Patient has been sick for about 10 days, he was tested positive for COVID-19 on October 29 at an outside facility. admit from ER fro new hypoxia and trouble breathing, Patient denies any chest pain, no abdominal pain, no nausea vomiting. Past Medical History Cardiovascular: Hyperlipidemia Pulmonary: No pertinent hx CENTRAL NERVOUS SYSTEM: Other GI: No pertinent hx Heme/Onc: No pertinent hx Hepatobiliary: No pertinent hx Psych: No pertinent hx Musculoskeletal: low back pain, Osteoarthritis Rheumatologic: No pertinent hx Infectious disease: No pertinent hx Renal/: No pertinent hx Endocrine: Diabetes Past Surgical History Past Surgical History: Other Family History Family History: Diabetes Social History Smoke: No ALCOHOL: none Drugs: None Vitals/I&O Vitals/I&O: Vital Signs Date Time Temp Pulse Resp B/P (MAP) Pulse Ox O2 Delivery O2 Flow Rate FiO2 11/10/19 08:30 92 vapotherm 40.0 11/10/19 08:20 89 110/69 (83) 11/10/19 07:00 98.1 18 98.1 I & O 11/09/19 11/09/19 11/10/19 15:00 23:00 07:00 Intake Total 700 ml 1137.7 ml 1209.4 ml Output Total 1190 ml 800 ml 1500 ml Balance -490 ml 337.7 ml -290.6 ml Physical Exam General: Alert, Cooperative, No acute distress Extremities: No edema Skin: No breakdown Labs Labs: Laboratory Tests Test 11/09/19 11:25 11/09/19 16:53 11/09/19 21:01 11/10/19 03:30 Glucose (Fingerstick) 263 mg/dL (70-99) 263 mg/dL (70-99) 242 mg/dL (70-99) White Blood Count 14.5 x10^3/uL (4.0-11.0) Red Blood Count 4.62 x10^6/uL (4.30-5.70) Hemoglobin 13.5 g/dL (13.0-17.5) Hematocrit 40.8 % (39.0-53.0) Mean Corpuscular Volume 88 fL (79-100) Mean Corpuscular Hemoglobin 29 pg (25-35) Mean Corpuscular Hemoglobin Concent 33 g/dL (31-37) Red Cell Distribution Width 12.9 % (11.5-14.5) Platelet Count 364 x10^3/uL (140-400) Neutrophils (%) (Auto) 90 % (31-73) Lymphocytes (%) (Auto) 4 % (24-48) Monocytes (%) (Auto) 5 % (0-9) Eosinophils (%) (Auto) 0 % (0-3) Basophils (%) (Auto) 0 % (0-3) Neutrophils # (Auto) 13.1 x10^3/uL (1.8-7.7) Lymphocytes # (Auto) 0.6 x10^3/uL (1.0-4.8) Monocytes # (Auto) 0.8 x10^3/uL (0.0-1.1) Eosinophils # (Auto) 0.0 x10^3/uL (0.0-0.7) Basophils # (Auto) 0.0 x10^3/uL (0.0-0.2) Total Bilirubin 0.5 mg/dL (0.2-1.0) Direct Bilirubin 0.2 mg/dL (0.0-0.2) Aspartate Amino Transf (AST/SGOT) 33 U/L (15-37) Alanine Aminotransferase (ALT/SGPT) 46 U/L (16-63) Alkaline Phosphatase 81 U/L (46-116) Total Protein 5.9 g/dL (6.4-8.2) Albumin 2.5 g/dL (3.4-5.0) Test 11/10/19 07:47 Glucose (Fingerstick) 216 mg/dL (70-99) Assessment and Plan Assessmemt and Plan Problems Medical Problems: (1) COVID-19 virus infection Status: Acute (2) Hypoxia Status: Acute (3) Pneumonia due to 2019 novel coronavirus Status: Acute Assessment COVID 19 acute hypoxia pneumonia sepsis moderate malnutrition Dm2 Plan Respiratory isolation IV steroids IV antibiotics DVT prophylaxis Multivitamins with minerals Appreciate subspecialist input Full code Comment Review of Relevant I have reviewed the following items jameson (where applicable) has been applied. Medications: Current Medications Medications (Trade) Dose Ordered Sig/Amy Route PRN Reason Start Time Stop Time Status Last Admin Dose Admin Multivitamins (Thera M Plus) 1 tab DAILY PO 11/09/19 12:00 11/10/19 08:38 Lactobacillus Rhamnosus (Culturelle) 1 cap BID PO 11/09/19 21:00 11/10/19 08:38 Sodium Chloride 1,000 ml @ 75 mls/hr [id number] IV 11/09/19 18:30 11/10/19 03:56 Insulin Human Lispro (HumaLOG) 0-7 UNITS QIDACHS SQ 11/09/19 21:15 11/10/19 08:39 Non-Formulary Medication 1 ea/ Sodium Chloride 210 ml @ 210 mls/hr 1X ONCE IV 11/10/19 10:00 11/10/19 10:59 11/10/19 10:19 Justicifation of Admission Dx: Justifications for Admission: Justification of Admission Dx: Yes Comminuty Aquired Pneumonia: Hypoxemia MIKE JAIME III DO Nov 10, 2019 10:27
[2019-11-10 10:45] LABS: C-REACTIVE PROTEIN 24.1 mg/L (0-3.3)
--- NOTE | 2019-11-10 15:05 | NUR ---
SS following up with discharge planning. SS reviewed pt chart and discussed with pt RN. Pt remains on Vapotherm at this time. COVID19 positive. Pt on IV Rocephin and Remdisvir. SS will continue to follow for discharge planning.
[2019-11-10] MEDS: cefTRIAXone IV Push 1 GM VIAL. IVP SCH (17:24)
[2019-11-10] MEDS: ACETAMINOPHEN 325 MG TABLET. PO PRN (20:57)
[2019-11-10] MEDS: INSULIN GLARGINE SYRINGE. SQ SCH (21:14)
[2019-11-11] VITALS (23 sets, daily range): BP systolic 92–120; BP diastolic 53–77
[2019-11-11] MEDS: STERILE WATER for RESP 1,000 ML BAG. INH PRN ×2 (05:13→18:44)
[2019-11-11] MEDS: methylPREDNISolone SOD SUCC PF 40 MG/ML VIAL. IV SCH ×3 (06:07→20:57)
--- NOTE | 2019-11-11 06:39 | PDOC ---
PULMONARY PROGRESS NOTES DATE: 11/11/19 TIME: 06:25 Subjective remains on Vapotherm 40 L and 100%, desat easily no SOB or CP or increased cough Vitals Vital Signs Date Time Temp Pulse Resp B/P (MAP) Pulse Ox O2 Delivery O2 Flow Rate FiO2 11/11/19 05:00 50 105/60 (75) 90 High Flow Nasal Cannula 40.0 11/11/19 04:00 97.9 97.9 11/10/19 15:00 22 Comments Visual exam preformed as pt. seen during COVID pandemic alert no distress no accessory muscle use Vapotherm appear comfortable RRR No rash no edema Labs Laboratory Tests Test 11/09/19 07:30 11/09/19 08:00 11/09/19 08:46 11/09/19 11:25 O2 Saturation 89 % (92-99) Arterial Blood pH 7.45 (7.35-7.45) Arterial Blood pCO2 at Patient Temp 32 mmHg (35-46) Arterial Blood pO2 at Patient Temp 55 mmHg (75-108) Arterial Blood HCO3 22 mmol/L (21-28) Arterial Blood Base Excess -1 mmol/L (-3-3) Oxyhemoglobin 89.2 % Methemoglobin 0.0 % (0.0-1.9) Carbon Monoxide, Quantitative 0.1 % (0.0-1.9) FiO2 100 Sodium Level 138 mmol/L (136-145) Potassium Level 4.0 mmol/L (3.5-5.1) Chloride Level 104 mmol/L (98-107) Carbon Dioxide Level 26 mmol/L (21-32) Anion Gap 8 (6-14) Blood Urea Nitrogen 16 mg/dL (8-26) Creatinine 0.7 mg/dL (0.7-1.3) Estimated GFR (Cockcroft-Gault) 119.4 Glucose Level 269 mg/dL (70-99) Calcium Level 8.3 mg/dL (8.5-10.1) Glucose (Fingerstick) 260 mg/dL (70-99) 263 mg/dL (70-99) Test 11/09/19 16:53 11/09/19 21:01 11/10/19 03:30 11/10/19 07:47 Glucose (Fingerstick) 263 mg/dL (70-99) 242 mg/dL (70-99) 216 mg/dL (70-99) White Blood Count 14.5 x10^3/uL (4.0-11.0) Red Blood Count 4.62 x10^6/uL (4.30-5.70) Hemoglobin 13.5 g/dL (13.0-17.5) Hematocrit 40.8 % (39.0-53.0) Mean Corpuscular Volume 88 fL (79-100) Mean Corpuscular Hemoglobin 29 pg (25-35) Mean Corpuscular Hemoglobin Concent 33 g/dL (31-37) Red Cell Distribution Width 12.9 % (11.5-14.5) Platelet Count 364 x10^3/uL (140-400) Neutrophils (%) (Auto) 90 % (31-73) Lymphocytes (%) (Auto) 4 % (24-48) Monocytes (%) (Auto) 5 % (0-9) Eosinophils (%) (Auto) 0 % (0-3) Basophils (%) (Auto) 0 % (0-3) Neutrophils # (Auto) 13.1 x10^3/uL (1.8-7.7) Lymphocytes # (Auto) 0.6 x10^3/uL (1.0-4.8) Monocytes # (Auto) 0.8 x10^3/uL (0.0-1.1) Eosinophils # (Auto) 0.0 x10^3/uL (0.0-0.7) Basophils # (Auto) 0.0 x10^3/uL (0.0-0.2) Ferritin 1661 ng/mL (26-388) Total Bilirubin 0.5 mg/dL (0.2-1.0) Direct Bilirubin 0.2 mg/dL (0.0-0.2) Aspartate Amino Transf (AST/SGOT) 33 U/L (15-37) Alanine Aminotransferase (ALT/SGPT) 46 U/L (16-63) Alkaline Phosphatase 81 U/L (46-116) Lactate Dehydrogenase 597 U/L (85-227) C-Reactive Protein, Quantitative 24.1 mg/L (0-3.3) Total Protein 5.9 g/dL (6.4-8.2) Albumin 2.5 g/dL (3.4-5.0) Test 11/10/19 11:37 11/10/19 16:37 11/10/19 21:10 Glucose (Fingerstick) 249 mg/dL (70-99) 233 mg/dL (70-99) 203 mg/dL (70-99) Laboratory Tests Test 11/10/19 07:47 11/10/19 11:37 11/10/19 16:37 11/10/19 21:10 Glucose (Fingerstick) 216 mg/dL (70-99) 249 mg/dL (70-99) 233 mg/dL (70-99) 203 mg/dL (70-99) Medications Active Scripts Medications Dose Route/Sig Max Daily Dose Days Date Category No Active Prescriptions or Reported Medications Rx Comments CXR IMPRESSION: Acute alveolar infiltrates worse on the right Impression . IMPRESSION: 1. Acute hypoxic respiratory failure secondary to COVID-19 pneumonia- ongoing, 2. Abnormal chest x-ray with faint bilateral patchy infiltrates favoring COVID- 19 pneumonia. 3. No significant tobacco history. 4. Type 2 diabetes. 5. Fever -improving Plan . RECOMMENDATIONS: 1. Continue present oxygen to keep saturation 92 and above, requiring Vapotherm at 40 L and 100%, 2. Cont. antibiotics 3. Cont. steroids 4. DVT prophylaxis with Lovenox. 5. S/P convalescent plasma on 11/08/2019, on remdesivir, started 11/09 6. Discussed with RN and RT 7. Continue to monitor clinical course closely in icu critically ill, TOTAL CC time 30 min, no overlap JASMYNE HERNANDEZ MD Nov 11, 2019 06:39
[2019-11-11] MEDS: LACTOBACILLUS RHAMNOSUS GG 1 CAPSULE. PO SCH ×2 (08:33→20:57)
[2019-11-11] MEDS: MULTIVITAMIN with MINERAL TABLET. PO SCH (08:33)
[2019-11-11] MEDS: DOXYCYCLINE HYCLATE 100 MG TABLET PO SCH ×2 (08:33→20:57)
[2019-11-11] MEDS: ENOXAPARIN 40 MG/0.4 ML SYRINGE. SQ SCH ×2 (08:33→21:25)
[2019-11-11] MEDS: FOLIC/VIT B COMP W-C (RENAL) TABLET. PO SCH (08:33)
[2019-11-11] MEDS: ZINC SULFATE 220 MG CAPSULE. PO SCH (08:33)
--- NOTE | 2019-11-11 09:03 | PDOC ---
Infectious Disease Note Subjective Subjective Denies increase SOA High flow O2 40% No fevers/chills ROS ROS as mentioned above Vital Sign Vital Signs Vital Signs Date Time Temp Pulse Resp B/P (MAP) Pulse Ox O2 Delivery O2 Flow Rate FiO2 11/11/19 07:44 93 vapotherm 40.0 11/11/19 06:00 60 99/60 (73) 11/11/19 04:00 97.9 97.9 11/10/19 15:00 22 Physical Exam PHYSICAL EXAM GENERAL: Propped up in bed, alert, calm, in NAD HEENT: Oral mucosa moist. No thrush. NECK: Supple. No JVD. LUNGS: Clear bilaterally, No accessory muscle use. HEART: S1, S2. No gallops or murmurs, regular ABDOMEN: Soft, nontender, nondistended. EXTREMITIES: No edema, no cyanosis. DERMATOLOGIC: Warm, dry. No generalized rash. NEUROLOGIC: Alert and oriented x 3, grossly nonfocal. PSYCHIATRIC: Cooperative, calm. Labs Lab Laboratory Tests Test 11/10/19 11:37 11/10/19 16:37 11/10/19 21:10 11/11/19 08:36 Glucose (Fingerstick) 249 mg/dL (70-99) 233 mg/dL (70-99) 203 mg/dL (70-99) 214 mg/dL (70-99) Micro Microbiology 11/07/19 Blood Culture - Preliminary, Resulted NO GROWTH AFTER 3 DAYS Objective Assessment COVID-19 respiratory infection. -Status post convalescent plasma. -Currently on Remdesivir, 11/09 Fever, likely from above, improved Pulmonary infiltrates, likely from COVID-19 infection. Leukocytosis, on steroids. Type 2 diabetes. Hyperlipidemia. Plan Plan of Care Continue ceftriaxone and doxycycline. Continue Remdesivir, 11/09 Status post convalescent plasma. Steroids per primary Monitor labs/temp Airborne isolation for COVID-19 Discussed with nursing staff. Critically ill. Attending Co-Sign Attending Co-Sign Attending Co-Sign The patient was seen and examined at the bedside. The chart was reviewed. The case was discussed. Agree with the plan of care. LALA SOTELO APRN Nov 11, 2019 09:03 YAJAIRA JACKSON MD Nov 11, 2019 13:05
[2019-11-11] MEDS: REMDESIVIR 100mg in NORMAL SALINE 250ML X 4 DAYS IV SCH (10:06)
[2019-11-11] MEDS: INSULIN LISPRO 300 UNITS/3 ML VIAL. SQ SCH ×4 (10:06→20:59)
[2019-11-11] MEDS: IV NORMAL SALINE 1000ML BAG 1,000 ML IV SCH ×2 (10:06→23:50)
--- NOTE | 2019-11-11 12:01 | PDOC ---
[facility] [facility] PROGRESS NOTE Date of Service DOS: DATE: 11/11/19 TIME: 11:54 Chief Complaint Chief Complaint COVID 19 acute hypoxia pneumonia sepsis moderate malnutrition Dm2 VTE Prophylaxis Ordered VTE Prophylaxis Devices: No VTE Pharmacological Prophylaxi: Yes admit to COVID unit, he was positive from oct 29, isolate, seen with PPE, PULM consult, lovenox, steroid, abx, antitussives, Justicifation of Admission Dx: Justicifation of Admission Dx: Justifications for Admission: Justification of Admission Dx: Yes Comminuty Aquired Pneumonia: Hypoxemia History of Present Illness History of Present Illness 11/11/2019 Patient is seen and examined Started Remdesivir 11/09 Discussed with RN Resting comfortably on Vapotherm Charts reviewed 11/10/2019 Patient is seen and examined Patient is sitting up and resting comfortably on Vapotherm Discussed with RN Charts reviewed 11/09/2019 Patient seen and examined Resting comfortably On vapotherm Received Plasma 11/07 Discussed with RN Charts reviewed History of Present Illness History of Present Illness Mr. Brown is a 48 year old male admit with worsening symptoms of cough, fever, trouble breathing and generalized weakness. he appears listless and is lethargic, Patient has been sick for about 10 days, he was tested positive for COVID-19 on October 29 at an outside facility. admit from ER fro new hypoxia and trouble breathing, Patient denies any chest pain, no abdominal pain, no nausea vomiting. Past Medical History Cardiovascular: Hyperlipidemia Pulmonary: No pertinent hx CENTRAL NERVOUS SYSTEM: Other GI: No pertinent hx Heme/Onc: No pertinent hx Hepatobiliary: No pertinent hx Psych: No pertinent hx Musculoskeletal: low back pain, Osteoarthritis Rheumatologic: No pertinent hx Infectious disease: No pertinent hx Renal/: No pertinent hx Endocrine: Diabetes Past Surgical History Past Surgical History: Other Family History Family History: Diabetes Social History Smoke: No ALCOHOL: none Drugs: None Vitals/I&O Vitals/I&O: Vital Signs Date Time Temp Pulse Resp B/P (MAP) Pulse Ox O2 Delivery O2 Flow Rate FiO2 11/11/19 11:00 80 30 100/58 (72) 91 High Flow Nasal Cannula 40.0 11/11/19 08:00 98.6 98.6 I & O 11/10/19 11/10/19 11/11/19 15:00 23:00 07:00 Intake Total 480 ml 240 ml 1962 ml Output Total 700 ml 1150 ml 775 ml Balance -220 ml -910 ml 1187 ml Physical Exam Physical Exam: GENERAL: Propped up in bed, alert, calm, in NAD HEENT: Oral mucosa moist. No thrush. NECK: Supple. No JVD. LUNGS: Clear bilaterally, No accessory muscle use. HEART: S1, S2. No gallops or murmurs, regular ABDOMEN: Soft, nontender, nondistended. EXTREMITIES: No edema, no cyanosis. DERMATOLOGIC: Warm, dry. No generalized rash. NEUROLOGIC: Alert and oriented x 3, grossly nonfocal. PSYCHIATRIC: Cooperative, calm. General: Alert, Cooperative, No acute distress Abdomen: No tenderness, No masses Extremities: No edema Skin: No breakdown Labs Labs: Laboratory Tests Test 11/10/19 16:37 11/10/19 21:10 11/11/19 08:36 Glucose (Fingerstick) 233 mg/dL (70-99) 203 mg/dL (70-99) 214 mg/dL (70-99) Assessment and Plan Assessmemt and Plan Problems Medical Problems: (1) COVID-19 virus infection Status: Acute (2) Hypoxia Status: Acute (3) Pneumonia due to 2019 novel coronavirus Status: Acute Plan COVID 19 acute hypoxia pneumonia sepsis moderate malnutrition Dm2 Assessment ICU monitoring Respiratory isolation O2 saturation monitoring IV antibiotics per ID IV steroids DVT prophylaxis Multivitamins with minerals Appreciate subspecialist input Full code Comment Review of Relevant I have reviewed the following items jameson (where applicable) has been applied. Medications: Current Medications Medications (Trade) Dose Ordered Sig/Amy Route PRN Reason Start Time Stop Time Status Last Admin Dose Admin Non-Formulary Medication 1 ea/ Sodium Chloride 230 ml @ 460 mls/hr Q24H IV 11/11/19 10:00 11/14/19 10:29 11/11/19 10:06 Justicifation of Admission Dx: Justifications for Admission: Justification of Admission Dx: Yes Comminuty Aquired Pneumonia: Hypoxemia MIKE JAIME III DO Nov 11, 2019 12:01
[2019-11-11] MEDS: BENZONATATE 100 MG CAPSULE. PO SCH ×3 (12:29→20:57)
[2019-11-11] MEDS: DEXMEDETOMIDINE 400 MCG in IV NORMAL SALINE 100ML 96 ML IV PRN (14:52)
[2019-11-11] MEDS: oxyCODONE/APAP 5/325 1 TAB TABLET PO PRN (15:59)
[2019-11-11] MEDS: cefTRIAXone IV Push 1 GM VIAL. IVP SCH (17:05)
[2019-11-11] MEDS: ACETAMINOPHEN 325 MG TABLET. PO PRN (17:52)
[2019-11-11] MEDS: INSULIN GLARGINE SYRINGE. SQ SCH (20:59)
[2019-11-12] VITALS (23 sets, daily range): BP systolic 96–128; BP diastolic 57–78
[2019-11-12 06:00] LABS: BASO % 0 % (0-3); EOS % 0 % (0-3); HEMATOCRIT 41.7 % (39.0-53.0); HEMOGLOBIN 14.2 g/dL (13.0-17.5); LYMPH # 0.6 x10^3/uL (1.0-4.8); LYMPH % 5 % (24-48); MEAN CORPUSCULAR HEMOGLOBIN 30 pg (25-35); MEAN CORPUSCULAR HGB CONC 34 g/dL (31-37); MEAN CORPUSCULAR VOLUME 87 fL (79-100); MONO # 0.7 x10^3/uL (0.0-1.1); MONO % 5 % (0-9); NEUT # 11.8 x10^3/uL (1.8-7.7); NEUT % 89 % (31-73); PLATELET COUNT 455 x10^3/uL (140-400); RED BLOOD COUNT 4.78 x10^6/uL (4.30-5.70); WHITE BLOOD COUNT 13.2 x10^3/uL (4.0-11.0)
[2019-11-12 06:17] LABS: ALBUMIN 2.3 g/dL (3.4-5.0); ALBUMIN/GLOBULIN RATIO 0.6 (1.0-1.7); CALCIUM 8.3 mg/dL (8.5-10.1); CREATININE 0.7 mg/dL (0.7-1.3); GFR 119.4; POTASSIUM 4.1 mmol/L (3.5-5.1); TOTAL BILIRUBIN 0.8 mg/dL (0.2-1.0); TOTAL PROTEIN 6.2 g/dL (6.4-8.2)
[2019-11-12] MEDS: methylPREDNISolone SOD SUCC PF 40 MG/ML VIAL. IV SCH ×3 (07:09→22:21)
[2019-11-12] MEDS: BENZONATATE 100 MG CAPSULE. PO SCH ×3 (08:16→22:22)
[2019-11-12] MEDS: MULTIVITAMIN with MINERAL TABLET. PO SCH (08:16)
[2019-11-12] MEDS: ENOXAPARIN 40 MG/0.4 ML SYRINGE. SQ SCH ×2 (08:16→22:22)
[2019-11-12] MEDS: ZINC SULFATE 220 MG CAPSULE. PO SCH (08:16)
[2019-11-12] MEDS: DOXYCYCLINE HYCLATE 100 MG TABLET PO SCH ×2 (08:16→22:22)
[2019-11-12] MEDS: LACTOBACILLUS RHAMNOSUS GG 1 CAPSULE. PO SCH ×2 (08:16→22:22)
[2019-11-12] MEDS: FOLIC/VIT B COMP W-C (RENAL) TABLET. PO SCH (08:17)
--- NOTE | 2019-11-12 08:18 | PDOC ---
Infectious Disease Note Subjective Subjective Says doing ok Denies increase SOA High flow O2 40L/100% No fevers/chills ROS ROS as mentioned above Vital Sign Vital Signs Vital Signs Date Time Temp Pulse Resp B/P (MAP) Pulse Ox O2 Delivery O2 Flow Rate FiO2 11/12/19 07:19 89 vapotherm 40.0 11/12/19 06:00 66 21 96/63 (74) 11/12/19 04:00 98.4 98.4 Physical Exam PHYSICAL EXAM GENERAL: Propped up in bed, alert, calm, in NAD HEENT: Oral mucosa moist. No thrush. NECK: Supple. No JVD. LUNGS: Clear bilaterally, No accessory muscle use. HEART: S1, S2. No gallops or murmurs, regular ABDOMEN: Soft, nontender, nondistended. EXTREMITIES: No edema, no cyanosis. DERMATOLOGIC: Warm, dry. No generalized rash. NEUROLOGIC: Alert and oriented x 3, grossly nonfocal. PSYCHIATRIC: Cooperative, calm. PIV looks ok Labs Lab Laboratory Tests Test 11/11/19 08:36 11/11/19 12:33 11/11/19 17:33 11/11/19 20:50 Glucose (Fingerstick) 214 mg/dL (70-99) 251 mg/dL (70-99) 246 mg/dL (70-99) 270 mg/dL (70-99) Test 11/12/19 05:30 White Blood Count 13.2 x10^3/uL (4.0-11.0) Red Blood Count 4.78 x10^6/uL (4.30-5.70) Hemoglobin 14.2 g/dL (13.0-17.5) Hematocrit 41.7 % (39.0-53.0) Mean Corpuscular Volume 87 fL (79-100) Mean Corpuscular Hemoglobin 30 pg (25-35) Mean Corpuscular Hemoglobin Concent 34 g/dL (31-37) Red Cell Distribution Width 13.0 % (11.5-14.5) Platelet Count 455 x10^3/uL (140-400) Neutrophils (%) (Auto) 89 % (31-73) Lymphocytes (%) (Auto) 5 % (24-48) Monocytes (%) (Auto) 5 % (0-9) Eosinophils (%) (Auto) 0 % (0-3) Basophils (%) (Auto) 0 % (0-3) Neutrophils # (Auto) 11.8 x10^3/uL (1.8-7.7) Lymphocytes # (Auto) 0.6 x10^3/uL (1.0-4.8) Monocytes # (Auto) 0.7 x10^3/uL (0.0-1.1) Eosinophils # (Auto) 0.0 x10^3/uL (0.0-0.7) Basophils # (Auto) 0.0 x10^3/uL (0.0-0.2) Sodium Level 137 mmol/L (136-145) Potassium Level 4.1 mmol/L (3.5-5.1) Chloride Level 103 mmol/L (98-107) Carbon Dioxide Level 27 mmol/L (21-32) Anion Gap 7 (6-14) Blood Urea Nitrogen 16 mg/dL (8-26) Creatinine 0.7 mg/dL (0.7-1.3) Estimated GFR (Cockcroft-Gault) 119.4 BUN/Creatinine Ratio 23 (6-20) Glucose Level 260 mg/dL (70-99) Calcium Level 8.3 mg/dL (8.5-10.1) Total Bilirubin 0.8 mg/dL (0.2-1.0) Aspartate Amino Transf (AST/SGOT) 20 U/L (15-37) Alanine Aminotransferase (ALT/SGPT) 48 U/L (16-63) Alkaline Phosphatase 79 U/L (46-116) Total Protein 6.2 g/dL (6.4-8.2) Albumin 2.3 g/dL (3.4-5.0) Albumin/Globulin Ratio 0.6 (1.0-1.7) Micro Microbiology 11/07/19 Blood Culture - Preliminary, Resulted NO GROWTH AFTER 4 DAYS Objective Assessment COVID-19 respiratory infection. -Status post convalescent plasma. -Currently on Remdesivir, 11/09 Fever, likely from above, improved Pulmonary infiltrates, likely from COVID-19 infection. Leukocytosis, on steroids. Type 2 diabetes. Hyperlipidemia. Plan Plan of Care Continue ceftriaxone and doxycycline. Continue Remdesivir, 11/09 Status post convalescent plasma. Steroids per primary Probiotics Monitor labs/temp Airborne isolation for COVID-19 Discussed with nursing staff. Critically ill. Attending Co-Sign Attending Co-Sign The patient was seen ,examined at the bedside. The chart was reviewed. The case was discussed. Agree with the plan of care. LALA SOTELO APRN Nov 12, 2019 08:18 YAJAIRA JACKSON MD Nov 12, 2019 14:02
[2019-11-12] MEDS: INSULIN LISPRO 300 UNITS/3 ML VIAL. SQ SCH ×4 (08:31→22:35)
[2019-11-12] MEDS: ACETAMINOPHEN 325 MG TABLET. PO PRN ×2 (09:06→17:50)
--- NOTE | 2019-11-12 09:30 | NUR ---
Patient not in sync with the ventilator regardless of bolusing sedation medication. Patient overbreathing ventilator and exhibiting abdominal breathing. PRN Vec given in attempt to get patient back in sync with ventilator. Addendum: 11/12/19 at 1141 by MICHAEL BOYER RN Documented on wrong patient
[2019-11-12] MEDS: REMDESIVIR 100mg in NORMAL SALINE 250ML X 4 DAYS IV SCH (10:21)
[2019-11-12] MEDS: STERILE WATER for RESP 1,000 ML BAG. INH PRN (11:19)
--- NOTE | 2019-11-12 11:29 | PDOC ---
PULMONARY PROGRESS NOTES DATE: 11/12/19 TIME: 11:29 Subjective remains on Vapotherm 40 L and 100%, feels better, no cp or increased cough Vitals Vital Signs Date Time Temp Pulse Resp B/P (MAP) Pulse Ox O2 Delivery O2 Flow Rate FiO2 11/12/19 11:19 93 vapotherm 35.0 11/12/19 11:00 68 20 117/68 (84) 11/12/19 08:00 98.5 98.5 Comments Visual exam preformed as pt. seen during COVID- pandemic alert no distress no accessory muscle use Vapotherm appears comfortable RRR No rash no edema Labs Laboratory Tests Test 11/10/19 11:37 11/10/19 16:37 11/10/19 21:10 11/11/19 08:36 Glucose (Fingerstick) 249 mg/dL (70-99) 233 mg/dL (70-99) 203 mg/dL (70-99) 214 mg/dL (70-99) Test 11/11/19 12:33 11/11/19 17:33 11/11/19 20:50 11/12/19 05:30 Glucose (Fingerstick) 251 mg/dL (70-99) 246 mg/dL (70-99) 270 mg/dL (70-99) White Blood Count 13.2 x10^3/uL (4.0-11.0) Red Blood Count 4.78 x10^6/uL (4.30-5.70) Hemoglobin 14.2 g/dL (13.0-17.5) Hematocrit 41.7 % (39.0-53.0) Mean Corpuscular Volume 87 fL (79-100) Mean Corpuscular Hemoglobin 30 pg (25-35) Mean Corpuscular Hemoglobin Concent 34 g/dL (31-37) Red Cell Distribution Width 13.0 % (11.5-14.5) Platelet Count 455 x10^3/uL (140-400) Neutrophils (%) (Auto) 89 % (31-73) Lymphocytes (%) (Auto) 5 % (24-48) Monocytes (%) (Auto) 5 % (0-9) Eosinophils (%) (Auto) 0 % (0-3) Basophils (%) (Auto) 0 % (0-3) Neutrophils # (Auto) 11.8 x10^3/uL (1.8-7.7) Lymphocytes # (Auto) 0.6 x10^3/uL (1.0-4.8) Monocytes # (Auto) 0.7 x10^3/uL (0.0-1.1) Eosinophils # (Auto) 0.0 x10^3/uL (0.0-0.7) Basophils # (Auto) 0.0 x10^3/uL (0.0-0.2) Sodium Level 137 mmol/L (136-145) Potassium Level 4.1 mmol/L (3.5-5.1) Chloride Level 103 mmol/L (98-107) Carbon Dioxide Level 27 mmol/L (21-32) Anion Gap 7 (6-14) Blood Urea Nitrogen 16 mg/dL (8-26) Creatinine 0.7 mg/dL (0.7-1.3) Estimated GFR (Cockcroft-Gault) 119.4 BUN/Creatinine Ratio 23 (6-20) Glucose Level 260 mg/dL (70-99) Calcium Level 8.3 mg/dL (8.5-10.1) Total Bilirubin 0.8 mg/dL (0.2-1.0) Aspartate Amino Transf (AST/SGOT) 20 U/L (15-37) Alanine Aminotransferase (ALT/SGPT) 48 U/L (16-63) Alkaline Phosphatase 79 U/L (46-116) Total Protein 6.2 g/dL (6.4-8.2) Albumin 2.3 g/dL (3.4-5.0) Albumin/Globulin Ratio 0.6 (1.0-1.7) Test 11/12/19 08:19 Glucose (Fingerstick) 232 mg/dL (70-99) Laboratory Tests Test 11/11/19 12:33 11/11/19 17:33 11/11/19 20:50 11/12/19 05:30 Glucose (Fingerstick) 251 mg/dL (70-99) 246 mg/dL (70-99) 270 mg/dL (70-99) White Blood Count 13.2 x10^3/uL (4.0-11.0) Red Blood Count 4.78 x10^6/uL (4.30-5.70) Hemoglobin 14.2 g/dL (13.0-17.5) Hematocrit 41.7 % (39.0-53.0) Mean Corpuscular Volume 87 fL (79-100) Mean Corpuscular Hemoglobin 30 pg (25-35) Mean Corpuscular Hemoglobin Concent 34 g/dL (31-37) Red Cell Distribution Width 13.0 % (11.5-14.5) Platelet Count 455 x10^3/uL (140-400) Neutrophils (%) (Auto) 89 % (31-73) Lymphocytes (%) (Auto) 5 % (24-48) Monocytes (%) (Auto) 5 % (0-9) Eosinophils (%) (Auto) 0 % (0-3) Basophils (%) (Auto) 0 % (0-3) Neutrophils # (Auto) 11.8 x10^3/uL (1.8-7.7) Lymphocytes # (Auto) 0.6 x10^3/uL (1.0-4.8) Monocytes # (Auto) 0.7 x10^3/uL (0.0-1.1) Eosinophils # (Auto) 0.0 x10^3/uL (0.0-0.7) Basophils # (Auto) 0.0 x10^3/uL (0.0-0.2) Sodium Level 137 mmol/L (136-145) Potassium Level 4.1 mmol/L (3.5-5.1) Chloride Level 103 mmol/L (98-107) Carbon Dioxide Level 27 mmol/L (21-32) Anion Gap 7 (6-14) Blood Urea Nitrogen 16 mg/dL (8-26) Creatinine 0.7 mg/dL (0.7-1.3) Estimated GFR (Cockcroft-Gault) 119.4 BUN/Creatinine Ratio 23 (6-20) Glucose Level 260 mg/dL (70-99) Calcium Level 8.3 mg/dL (8.5-10.1) Total Bilirubin 0.8 mg/dL (0.2-1.0) Aspartate Amino Transf (AST/SGOT) 20 U/L (15-37) Alanine Aminotransferase (ALT/SGPT) 48 U/L (16-63) Alkaline Phosphatase 79 U/L (46-116) Total Protein 6.2 g/dL (6.4-8.2) Albumin 2.3 g/dL (3.4-5.0) Albumin/Globulin Ratio 0.6 (1.0-1.7) Test 11/12/19 08:19 Glucose (Fingerstick) 232 mg/dL (70-99) Medications Active Scripts Medications Dose Route/Sig Max Daily Dose Days Date Category No Active Prescriptions or Reported Medications Rx Comments CXR IMPRESSION: Acute alveolar infiltrates worse on the right Impression . IMPRESSION: 1. Acute hypoxic respiratory failure secondary to COVID-19 pneumonia- ongoing, 2. Abnormal chest x-ray with faint bilateral patchy infiltrates favoring COVID- 19 pneumonia. 3. No significant tobacco history. 4. Type 2 diabetes. 5. Fever -improving Plan . RECOMMENDATIONS: 1. Continue present oxygen to keep saturation 92 and above, requiring Vapotherm at 40 L and 100%, 2. Cont. antibiotics 3. Cont. steroids 4. DVT prophylaxis with Lovenox. 5. S/P convalescent plasma on 11/08/2019, on remdesivir, started 11/09 6. Discussed with RN and RT 7. Continue to monitor clinical course closely in icu critically ill, TOTAL CC time 30 min, no overlap JASMYNE HERNANDEZ MD Nov 12, 2019 11:29
--- NOTE | 2019-11-12 11:59 | PDOC ---
[employer] PROGRESS NOTE Date of Service DOS: DATE: 11/12/19 TIME: 11:50 Chief Complaint Chief Complaint COVID 19 Acute hypoxia Pneumonia Sepsis Moderate malnutrition DM 2 History of Present Illness History of Present Illness 11/12/2019 Patient seen and examined in the ICU Resting comfortably, on Vapotherm at 40 L and 100% Afebrile Received convalescent plasma on 11/08/19 Started Remdesivir 11/10/19 Discussed with RN Chart reviewed 11/11/2019 Patient is seen and examined Started Remdesivir 11/09 Discussed with RN Resting comfortably on Vapotherm Charts reviewed 11/10/2019 Patient is seen and examined Patient is sitting up and resting comfortably on Vapotherm Discussed with RN Charts reviewed 11/09/2019 Patient seen and examined Resting comfortably On vapotherm Received Plasma 11/07 Discussed with RN Charts reviewed History of Present Illness History of Present Illness Mr. Brown is a 48 year old male admit with worsening symptoms of cough, fever, trouble breathing and generalized weakness. he appears listless and is lethargic, Patient has been sick for about 10 days, he was tested positive for COVID-19 on October 29 at an outside facility. admit from ER fro new hypoxia and trouble breathing, Patient denies any chest pain, no abdominal pain, no nausea vomiting. Past Medical History Cardiovascular: Hyperlipidemia Pulmonary: No pertinent hx CENTRAL NERVOUS SYSTEM: Other GI: No pertinent hx Heme/Onc: No pertinent hx Hepatobiliary: No pertinent hx Psych: No pertinent hx Musculoskeletal: low back pain, Osteoarthritis Rheumatologic: No pertinent hx Infectious disease: No pertinent hx Renal/: No pertinent hx Endocrine: Diabetes Past Surgical History Past Surgical History: Other Family History Family History: Diabetes Social History Smoke: No ALCOHOL: none Drugs: None Vitals/I&O Vitals/I&O: Vital Signs Date Time Temp Pulse Resp B/P (MAP) Pulse Ox O2 Delivery O2 Flow Rate FiO2 11/12/19 11:19 93 vapotherm 35.0 11/12/19 11:00 68 20 117/68 (84) 11/12/19 08:00 98.5 98.5 I & O 11/11/19 11/11/19 11/12/19 15:00 23:00 07:00 Intake Total 230 ml 800.7 ml 978 ml Output Total 895 ml 900 ml 1700 ml Balance -665 ml -99.3 ml -722 ml Physical Exam Physical Exam: GENERAL: Propped up in bed, alert, calm, in NAD HEENT: Oral mucosa moist. No thrush. NECK: Supple. No JVD. LUNGS: Clear bilaterally, No accessory muscle use. HEART: S1, S2. No gallops or murmurs, regular ABDOMEN: Soft, nontender, nondistended. EXTREMITIES: No edema, no cyanosis. DERMATOLOGIC: Warm, dry. No generalized rash. NEUROLOGIC: Alert and oriented x 3, grossly nonfocal. PSYCHIATRIC: Cooperative, calm. PIV looks ok General: Alert, Oriented X3, Cooperative, No acute distress Heart: Regular rate Lungs: Clear Abdomen: Soft, No tenderness, No masses Extremities: No clubbing, No cyanosis, No edema Skin: No rashes, No breakdown, No significant lesion Labs Labs: Laboratory Tests Test 11/11/19 12:33 11/11/19 17:33 11/11/19 20:50 11/12/19 05:30 Glucose (Fingerstick) 251 mg/dL (70-99) 246 mg/dL (70-99) 270 mg/dL (70-99) White Blood Count 13.2 x10^3/uL (4.0-11.0) Red Blood Count 4.78 x10^6/uL (4.30-5.70) Hemoglobin 14.2 g/dL (13.0-17.5) Hematocrit 41.7 % (39.0-53.0) Mean Corpuscular Volume 87 fL (79-100) Mean Corpuscular Hemoglobin 30 pg (25-35) Mean Corpuscular Hemoglobin Concent 34 g/dL (31-37) Red Cell Distribution Width 13.0 % (11.5-14.5) Platelet Count 455 x10^3/uL (140-400) Neutrophils (%) (Auto) 89 % (31-73) Lymphocytes (%) (Auto) 5 % (24-48) Monocytes (%) (Auto) 5 % (0-9) Eosinophils (%) (Auto) 0 % (0-3) Basophils (%) (Auto) 0 % (0-3) Neutrophils # (Auto) 11.8 x10^3/uL (1.8-7.7) Lymphocytes # (Auto) 0.6 x10^3/uL (1.0-4.8) Monocytes # (Auto) 0.7 x10^3/uL (0.0-1.1) Eosinophils # (Auto) 0.0 x10^3/uL (0.0-0.7) Basophils # (Auto) 0.0 x10^3/uL (0.0-0.2) Sodium Level 137 mmol/L (136-145) Potassium Level 4.1 mmol/L (3.5-5.1) Chloride Level 103 mmol/L (98-107) Carbon Dioxide Level 27 mmol/L (21-32) Anion Gap 7 (6-14) Blood Urea Nitrogen 16 mg/dL (8-26) Creatinine 0.7 mg/dL (0.7-1.3) Estimated GFR (Cockcroft-Gault) 119.4 BUN/Creatinine Ratio 23 (6-20) Glucose Level 260 mg/dL (70-99) Calcium Level 8.3 mg/dL (8.5-10.1) Total Bilirubin 0.8 mg/dL (0.2-1.0) Aspartate Amino Transf (AST/SGOT) 20 U/L (15-37) Alanine Aminotransferase (ALT/SGPT) 48 U/L (16-63) Alkaline Phosphatase 79 U/L (46-116) Total Protein 6.2 g/dL (6.4-8.2) Albumin 2.3 g/dL (3.4-5.0) Albumin/Globulin Ratio 0.6 (1.0-1.7) Test 11/12/19 08:19 Glucose (Fingerstick) 232 mg/dL (70-99) Assessment and Plan Assessmemt and Plan Problems Medical Problems: (1) COVID-19 virus infection Status: Acute (2) Hypoxia Status: Acute (3) Pneumonia due to 2019 novel coronavirus Status: Acute ASSESSMENT COVID 19 Acute hypoxia Pneumonia Sepsis Moderate malnutrition DM 2 PLAN ICU monitoring Respiratory isolation O2 saturation monitoring Continue antibiotics per ID Continue steroids Oxygen supplementation DVT prophylaxis Home meds Full code Subspecialty input appreciated Comment Review of Relevant I have reviewed the following items jameson (where applicable) has been applied. Justicifation of Admission Dx: Justifications for Admission: Justification of Admission Dx: Yes Comminuty Aquired Pneumonia: Hypoxemia MIKE JAIME III DO Nov 12, 2019 11:59
[2019-11-12] MEDS: IV NORMAL SALINE 1000ML BAG 1,000 ML IV SCH (16:21)
[2019-11-12] MEDS: cefTRIAXone IV Push 1 GM VIAL. IVP SCH (17:37)
[2019-11-12] MEDS: INSULIN GLARGINE SYRINGE. SQ SCH (22:36)
[2019-11-13] VITALS (21 sets, daily range): BP systolic 85–121; BP diastolic 46–76
[2019-11-13] MEDS: STERILE WATER for RESP 1,000 ML BAG. INH PRN ×2 (01:27→15:46)
[2019-11-13] MEDS: IV NORMAL SALINE 1000ML BAG 1,000 ML IV SCH ×2 (02:30→20:24)
[2019-11-13] MEDS: methylPREDNISolone SOD SUCC PF 40 MG/ML VIAL. IV SCH ×3 (06:00→22:00)
--- NOTE | 2019-11-13 07:56 | PDOC ---
Infectious Disease Note Subjective Subjective Says doing ok Denies increase SOA High flow O2 35L/80% No fevers/chills/ better. no diarrhea or cough/rash ROS ROS o/w neg Vital Sign Vital Signs Vital Signs Date Time Temp Pulse Resp B/P (MAP) Pulse Ox O2 Delivery O2 Flow Rate FiO2 11/13/19 07:18 92 vapotherm 35.0 11/13/19 07:00 98 25 111/60 (77) 11/13/19 00:00 98.9 98.9 Physical Exam PHYSICAL EXAM GENERAL: Propped up in bed, alert, calm, in NAD HEENT: Oral mucosa moist. No thrush. NECK: Supple. No JVD. LUNGS: Clear bilaterally, No accessory muscle use. HEART: S1, S2. No gallops or murmurs, regular ABDOMEN: Soft, nontender, nondistended. EXTREMITIES: No edema, no cyanosis. DERMATOLOGIC: Warm, dry. No generalized rash. NEUROLOGIC: Alert and oriented x 3, grossly nonfocal. PSYCHIATRIC: Cooperative, calm. PIV looks ok Labs Lab Laboratory Tests Test 11/12/19 08:19 11/12/19 12:17 11/12/19 17:40 11/12/19 22:29 Glucose (Fingerstick) 232 mg/dL (70-99) 253 mg/dL (70-99) 248 mg/dL (70-99) 250 mg/dL (70-99) Micro Microbiology 11/07/19 Blood Culture - Final, Complete NO GROWTH AFTER 5 DAYS Objective Assessment COVID-19 respiratory infection. -Status post convalescent plasma. -Currently on Remdesivir, 11/09 Fever, likely from above, improved Pulmonary infiltrates, likely from COVID-19 infection. Leukocytosis, on steroids. Type 2 diabetes. Hyperlipidemia. Plan Plan of Care Continue ceftriaxone and doxycycline.11/06 wean soon Continue Remdesivir, 11/09 Status post convalescent plasma. Steroids per primary Probiotics Monitor labs/temp Airborne isolation for COVID-19 Discussed with nursing staff. Critically ill. JEROMY BASURTO MD Nov 13, 2019 07:55
[2019-11-13] MEDS: LACTOBACILLUS RHAMNOSUS GG 1 CAPSULE. PO SCH ×2 (08:20→20:54)
[2019-11-13] MEDS: ZINC SULFATE 220 MG CAPSULE. PO SCH (08:20)
[2019-11-13] MEDS: BENZONATATE 100 MG CAPSULE. PO SCH ×3 (08:20→20:53)
[2019-11-13] MEDS: FOLIC/VIT B COMP W-C (RENAL) TABLET. PO SCH (08:20)
[2019-11-13] MEDS: MULTIVITAMIN with MINERAL TABLET. PO SCH (08:20)
[2019-11-13] MEDS: DOXYCYCLINE HYCLATE 100 MG TABLET PO SCH ×2 (08:20→20:53)
[2019-11-13] MEDS: ENOXAPARIN 40 MG/0.4 ML SYRINGE. SQ SCH ×2 (08:21→20:54)
[2019-11-13] MEDS: INSULIN LISPRO 300 UNITS/3 ML VIAL. SQ SCH ×4 (08:37→20:55)
--- NOTE | 2019-11-13 09:28 | RAD ---
CHEST AP ONLY INDICATION: Reason: Hypoxia/c ovid + / Spl. Instructions: / History: . COMPARISON STUDY: 02/16/2020. FINDINGS: Lungs: Normal lung volume. Progression of patchy bilateral heterogeneous opacities. Pleura: No pleural effusion or pneumothorax. Heart and Mediastinum: Stable cardiomediastinal silhouette and great vessels. IMPRESSION: Progression of patchy bilateral heterogeneous opacities. Electronically signed by: Brant Lamb MD (11/13/2019 9:25 AM) [id number]
[2019-11-13] MEDS: REMDESIVIR 100mg in NORMAL SALINE 250ML X 4 DAYS IV SCH (09:54)
--- NOTE | 2019-11-13 11:06 | PDOC ---
PULMONARY PROGRESS NOTES DATE: 11/13/19 TIME: 11:04 Subjective remains on Vapotherm 40 L and 80%, feels better, no cp or increased cough Vitals Vital Signs Date Time Temp Pulse Resp B/P (MAP) Pulse Ox O2 Delivery O2 Flow Rate FiO2 11/13/19 09:00 94 26 114/67 (83) 92 Vapotherm 35.0 11/13/19 08:00 98.3 98.3 Comments Visual exam preformed as pt. seen during COVID- pandemic alert no distress no accessory muscle use Vapotherm appears comfortable RRR No rash no edema Lungs: Clear Labs Laboratory Tests Test 11/11/19 12:33 11/11/19 17:33 11/11/19 20:50 11/12/19 05:30 Glucose (Fingerstick) 251 mg/dL (70-99) 246 mg/dL (70-99) 270 mg/dL (70-99) White Blood Count 13.2 x10^3/uL (4.0-11.0) Red Blood Count 4.78 x10^6/uL (4.30-5.70) Hemoglobin 14.2 g/dL (13.0-17.5) Hematocrit 41.7 % (39.0-53.0) Mean Corpuscular Volume 87 fL (79-100) Mean Corpuscular Hemoglobin 30 pg (25-35) Mean Corpuscular Hemoglobin Concent 34 g/dL (31-37) Red Cell Distribution Width 13.0 % (11.5-14.5) Platelet Count 455 x10^3/uL (140-400) Neutrophils (%) (Auto) 89 % (31-73) Lymphocytes (%) (Auto) 5 % (24-48) Monocytes (%) (Auto) 5 % (0-9) Eosinophils (%) (Auto) 0 % (0-3) Basophils (%) (Auto) 0 % (0-3) Neutrophils # (Auto) 11.8 x10^3/uL (1.8-7.7) Lymphocytes # (Auto) 0.6 x10^3/uL (1.0-4.8) Monocytes # (Auto) 0.7 x10^3/uL (0.0-1.1) Eosinophils # (Auto) 0.0 x10^3/uL (0.0-0.7) Basophils # (Auto) 0.0 x10^3/uL (0.0-0.2) Sodium Level 137 mmol/L (136-145) Potassium Level 4.1 mmol/L (3.5-5.1) Chloride Level 103 mmol/L (98-107) Carbon Dioxide Level 27 mmol/L (21-32) Anion Gap 7 (6-14) Blood Urea Nitrogen 16 mg/dL (8-26) Creatinine 0.7 mg/dL (0.7-1.3) Estimated GFR (Cockcroft-Gault) 119.4 BUN/Creatinine Ratio 23 (6-20) Glucose Level 260 mg/dL (70-99) Calcium Level 8.3 mg/dL (8.5-10.1) Total Bilirubin 0.8 mg/dL (0.2-1.0) Aspartate Amino Transf (AST/SGOT) 20 U/L (15-37) Alanine Aminotransferase (ALT/SGPT) 48 U/L (16-63) Alkaline Phosphatase 79 U/L (46-116) Total Protein 6.2 g/dL (6.4-8.2) Albumin 2.3 g/dL (3.4-5.0) Albumin/Globulin Ratio 0.6 (1.0-1.7) Test 11/12/19 08:19 11/12/19 12:17 11/12/19 17:40 11/12/19 22:29 Glucose (Fingerstick) 232 mg/dL (70-99) 253 mg/dL (70-99) 248 mg/dL (70-99) 250 mg/dL (70-99) Test 11/13/19 08:29 Glucose (Fingerstick) 222 mg/dL (70-99) Laboratory Tests Test 11/12/19 12:17 11/12/19 17:40 11/12/19 22:29 11/13/19 08:29 Glucose (Fingerstick) 253 mg/dL (70-99) 248 mg/dL (70-99) 250 mg/dL (70-99) 222 mg/dL (70-99) Medications Active Scripts Medications Dose Route/Sig Max Daily Dose Days Date Category No Active Prescriptions or Reported Medications Rx Comments CXR 11/12 IMPRESSION: Acute alveolar infiltrates mild progression Impression . IMPRESSION: 1. Acute hypoxic respiratory failure secondary to COVID-19 pneumonia- ongoing, 2. Abnormal chest x-ray with faint bilateral patchy infiltrates favoring COVID- 19 pneumonia. 3. No significant tobacco history. 4. Type 2 diabetes. 5. Fever -improving Plan . RECOMMENDATIONS: 1. Continue present oxygen to keep saturation 92 and above, requiring Vapotherm at 35 litres. wean FIO2 slowly 2. Cont. antibiotics 3. Cont. steroids 4. DVT prophylaxis with Lovenox. 5. S/P convalescent plasma on 11/08/2019, on remdesivir, started 11/09 6. Discussed with RN and RT 7. Continue to monitor clinical course closely in icu critically ill, TOTAL CC time 30 min, no overlap DALLIN RICHEY MD Nov 13, 2019 11:06
--- NOTE | 2019-11-13 13:26 | PDOC ---
[employer] PROGRESS NOTE Date of Service DOS: DATE: 11/13/19 TIME: 13:25 Chief Complaint Chief Complaint COVID 19 Acute hypoxia Pneumonia Sepsis Moderate malnutrition DM 2 History of Present Illness History of Present Illness 11/13/2019 Patient seen and examined in the Covid-19 ICU He is on 35 L Vapotherm Chart reviewed Discussed with RN 11/12/2019 Patient seen and examined in the ICU Resting comfortably, on Vapotherm at 40 L and 100% Afebrile Received convalescent plasma on 11/08/19 Started Remdesivir 11/10/19 Discussed with RN Chart reviewed 11/11/2019 Patient is seen and examined Started Remdesivir 11/09 Discussed with RN Resting comfortably on Vapotherm Charts reviewed 11/10/2019 Patient is seen and examined Patient is sitting up and resting comfortably on Vapotherm Discussed with RN Charts reviewed 11/09/2019 Patient seen and examined Resting comfortably On vapotherm Received Plasma 11/07 Discussed with RN Charts reviewed History of Present Illness History of Present Illness Mr. Brown is a 48 year old male admit with worsening symptoms of cough, fever, trouble breathing and generalized weakness. he appears listless and is lethargic, Patient has been sick for about 10 days, he was tested positive for COVID-19 on October 29 at an outside facility. admit from ER fro new hypoxia and trouble breathing, Patient denies any chest pain, no abdominal pain, no nausea vomiting. Past Medical History Cardiovascular: Hyperlipidemia Pulmonary: No pertinent hx CENTRAL NERVOUS SYSTEM: Other GI: No pertinent hx Heme/Onc: No pertinent hx Hepatobiliary: No pertinent hx Psych: No pertinent hx Musculoskeletal: low back pain, Osteoarthritis Rheumatologic: No pertinent hx Infectious disease: No pertinent hx Renal/: No pertinent hx Endocrine: Diabetes Past Surgical History Past Surgical History: Other Family History Family History: Diabetes Social History Smoke: No ALCOHOL: none Drugs: None Vitals/I&O Vitals/I&O: Vital Signs Date Time Temp Pulse Resp B/P (MAP) Pulse Ox O2 Delivery O2 Flow Rate FiO2 11/13/19 13:00 98.6 96 22 121/76 (91) 95 Vapotherm 35.0 98.6 I & O 11/12/19 11/12/19 11/13/19 15:00 23:00 07:00 Intake Total 530 ml 1151.8 ml Output Total 600 ml 850 ml 750 ml Balance -70 ml 301.8 ml -750 ml Physical Exam Physical Exam: GENERAL: Propped up in bed, alert, calm, in NAD HEENT: Oral mucosa moist. No thrush. NECK: Supple. No JVD. LUNGS: Clear bilaterally, No accessory muscle use. HEART: S1, S2. No gallops or murmurs, regular ABDOMEN: Soft, nontender, nondistended. EXTREMITIES: No edema, no cyanosis. DERMATOLOGIC: Warm, dry. No generalized rash. NEUROLOGIC: Alert and oriented x 3, grossly nonfocal. PSYCHIATRIC: Cooperative, calm. PIV looks ok General: Alert, Oriented X3, Cooperative, No acute distress Heart: Regular rate Lungs: Clear Abdomen: Soft, No tenderness, No masses Extremities: No clubbing, No cyanosis, No edema Skin: No rashes, No breakdown, No significant lesion Labs Labs: Laboratory Tests Test 11/12/19 17:40 11/12/19 22:29 11/13/19 08:29 11/13/19 12:52 Glucose (Fingerstick) 248 mg/dL (70-99) 250 mg/dL (70-99) 222 mg/dL (70-99) 333 mg/dL (70-99) Assessment and Plan Assessmemt and Plan Problems Medical Problems: (1) COVID-19 virus infection Status: Acute (2) Hypoxia Status: Acute (3) Pneumonia due to 2019 novel coronavirus Status: Acute ASSESSMENT COVID 19 Acute hypoxia Pneumonia Sepsis Moderate malnutrition DM 2 PLAN ICU monitoring Respiratory isolation O2 saturation monitoring Continue antibiotics per ID Continue steroids Oxygen supplementation DVT prophylaxis Home meds Full code Subspecialty input appreciated Comment Review of Relevant I have reviewed the following items jameson (where applicable) has been applied. Justicifation of Admission Dx: Justifications for Admission: Justification of Admission Dx: Yes Comminuty Aquired Pneumonia: Hypoxemia MIKE JAIME III DO Nov 13, 2019 13:26
--- NOTE | 2019-11-13 14:51 | NUR ---
SS following up with discharge planning. SS reviewed pt chart and discussed with pt RN. Pt is currently on Vapotherm. Pt on Remdisvir and IV Rocephin. COVID19 positive. SS will continue to follow for discharge planning.
[2019-11-13] MEDS: ACETAMINOPHEN 325 MG TABLET. PO PRN (15:33)
[2019-11-13] MEDS: cefTRIAXone IV Push 1 GM VIAL. IVP SCH (17:20)
[2019-11-13] MEDS: oxyCODONE/APAP 5/325 1 TAB TABLET PO PRN (20:53)
[2019-11-13] MEDS: INSULIN GLARGINE SYRINGE. SQ SCH (20:56)
[2019-11-14] VITALS (21 sets, daily range): BP systolic 92–116; BP diastolic 54–74
[2019-11-14] MEDS: methylPREDNISolone SOD SUCC PF 40 MG/ML VIAL. IV SCH ×3 (06:08→22:07)
--- NOTE | 2019-11-14 08:00 | PDOC ---
Infectious Disease Note Subjective Subjective Says doing ok - a little better Denies increase SOA - occ sough but dry High flow O2 35L/50% No fevers/chills/ better. no diarrhea or cough/rash ROS ROS o/w neg Vital Sign Vital Signs Vital Signs Date Time Temp Pulse Resp B/P (MAP) Pulse Ox O2 Delivery O2 Flow Rate FiO2 11/14/19 07:00 73 20 92/66 (75) 92 Nasal Cannula 11/14/19 06:00 98.3 35.0 98.3 Physical Exam PHYSICAL EXAM GENERAL: Propped up in bed, alert, calm, in NAD HEENT: Oral mucosa moist. No thrush. NECK: Supple. No JVD. LUNGS: Clear bilaterally, No accessory muscle use. HEART: S1, S2. No gallops or murmurs, regular ABDOMEN: Soft, nontender, nondistended. EXTREMITIES: No edema, no cyanosis. DERMATOLOGIC: Warm, dry. No generalized rash. NEUROLOGIC: Alert and oriented x 3, grossly nonfocal. PSYCHIATRIC: Cooperative, calm. PIV looks ok Labs Lab Laboratory Tests Test 11/13/19 08:29 11/13/19 12:52 11/13/19 17:31 11/13/19 20:20 Glucose (Fingerstick) 222 mg/dL (70-99) 333 mg/dL (70-99) 299 mg/dL (70-99) 303 mg/dL (70-99) Micro Microbiology 11/07/19 Blood Culture - Final, Complete NO GROWTH AFTER 5 DAYS Objective Assessment COVID-19 respiratory infection.10/29 -Status post convalescent plasma. -Currently on Remdesivir, 11/09 Fever, likely from above, improved Pulmonary infiltrates, likely from COVID-19 infection. Leukocytosis, on steroids. Type 2 diabetes. Hyperlipidemia. Plan Plan of Care Discontinue ceftriaxone and doxycycline.11/06 Continue Remdesivir, 11/09 - done today Status post convalescent plasma. Steroids per primary Probiotics Monitor labs/temp Airborne isolation for COVID-19 Discussed with nursing staff. Critically ill. JEROMY BASURTO MD Nov 14, 2019 08:00
[2019-11-14] MEDS: IV NORMAL SALINE 1000ML BAG 1,000 ML IV SCH ×3 (08:09→22:07)
[2019-11-14] MEDS: ZINC SULFATE 220 MG CAPSULE. PO SCH (08:09)
[2019-11-14] MEDS: FOLIC/VIT B COMP W-C (RENAL) TABLET. PO SCH (08:09)
[2019-11-14] MEDS: LACTOBACILLUS RHAMNOSUS GG 1 CAPSULE. PO SCH ×2 (08:09→20:45)
[2019-11-14] MEDS: BENZONATATE 100 MG CAPSULE. PO SCH ×3 (08:10→20:45)
[2019-11-14] MEDS: ENOXAPARIN 40 MG/0.4 ML SYRINGE. SQ SCH ×2 (08:10→20:45)
[2019-11-14] MEDS: MULTIVITAMIN with MINERAL TABLET. PO SCH (08:10)
[2019-11-14] MEDS: INSULIN LISPRO 300 UNITS/3 ML VIAL. SQ SCH ×4 (08:15→20:49)
[2019-11-14 08:47] LABS: BASO % 0 % (0-3); EOS % 0 % (0-3); HEMATOCRIT 43.8 % (39.0-53.0); HEMOGLOBIN 14.6 g/dL (13.0-17.5); LYMPH # 0.3 x10^3/uL (1.0-4.8); LYMPH % 2 % (24-48); MEAN CORPUSCULAR HEMOGLOBIN 29 pg (25-35); MEAN CORPUSCULAR HGB CONC 33 g/dL (31-37); MEAN CORPUSCULAR VOLUME 88 fL (79-100); MONO # 1.1 x10^3/uL (0.0-1.1); MONO % 6 % (0-9); NEUT # 16.1 x10^3/uL (1.8-7.7); NEUT % 92 % (31-73); PLATELET COUNT 485 x10^3/uL (140-400); RED BLOOD COUNT 4.98 x10^6/uL (4.30-5.70); RED CELL DISTRIBUTION WIDTH 13.3 % (11.5-14.5); WHITE BLOOD COUNT 17.5 x10^3/uL (4.0-11.0)
[2019-11-14 08:55] LABS: CALCIUM 7.9 mg/dL (8.5-10.1); CREATININE 0.7 mg/dL (0.7-1.3); GFR 119.4; POTASSIUM 4.4 mmol/L (3.5-5.1)
[2019-11-14] MEDS: REMDESIVIR 100mg in NORMAL SALINE 250ML X 4 DAYS IV SCH (09:59)
--- NOTE | 2019-11-14 12:30 | PDOC ---
[employer] PROGRESS NOTE Date of Service DOS: DATE: 11/14/19 TIME: 12:30 Chief Complaint Chief Complaint COVID 19 Acute hypoxia Pneumonia Sepsis Moderate malnutrition DM 2 History of Present Illness History of Present Illness 11/14/2019 Patient still on Vapotherm Discussed with RN Chart reviewed 11/13/2019 Patient seen and examined in the Covid-19 ICU He is on 35 L Vapotherm Chart reviewed Discussed with RN 11/12/2019 Patient seen and examined in the ICU Resting comfortably, on Vapotherm at 40 L and 100% Afebrile Received convalescent plasma on 11/08/19 Started Remdesivir 11/10/19 Discussed with RN Chart reviewed 11/11/2019 Patient is seen and examined Started Remdesivir 11/09 Discussed with RN Resting comfortably on Vapotherm Charts reviewed 11/10/2019 Patient is seen and examined Patient is sitting up and resting comfortably on Vapotherm Discussed with RN Charts reviewed 11/09/2019 Patient seen and examined Resting comfortably On vapotherm Received Plasma 11/07 Discussed with RN Charts reviewed History of Present Illness History of Present Illness Mr. Brown is a 48 year old male admit with worsening symptoms of cough, fever, trouble breathing and generalized weakness. he appears listless and is lethargic, Patient has been sick for about 10 days, he was tested positive for COVID-19 on October 29 at an outside facility. admit from ER fro new hypoxia and trouble breathing, Patient denies any chest pain, no abdominal pain, no nausea vomiting. Past Medical History Cardiovascular: Hyperlipidemia Pulmonary: No pertinent hx CENTRAL NERVOUS SYSTEM: Other GI: No pertinent hx Heme/Onc: No pertinent hx Hepatobiliary: No pertinent hx Psych: No pertinent hx Musculoskeletal: low back pain, Osteoarthritis Rheumatologic: No pertinent hx Infectious disease: No pertinent hx Renal/: No pertinent hx Endocrine: Diabetes Past Surgical History Past Surgical History: Other Family History Family History: Diabetes Social History Smoke: No ALCOHOL: none Drugs: None Vitals/I&O Vitals/I&O: Vital Signs Date Time Temp Pulse Resp B/P (MAP) Pulse Ox O2 Delivery O2 Flow Rate FiO2 11/14/19 11:00 92 vapotherm 35.0 11/14/19 09:00 100 20 96/63 (74) 11/14/19 08:00 98.4 98.4 I & O 11/13/19 11/13/19 11/14/19 15:00 23:00 07:00 Intake Total 710 ml 2791 ml 1170 ml Output Total 1750 ml 200 ml Balance 710 ml 1041 ml 970 ml Physical Exam Physical Exam: GENERAL: Propped up in bed, alert, calm, in NAD HEENT: Oral mucosa moist. No thrush. NECK: Supple. No JVD. LUNGS: Clear bilaterally, No accessory muscle use. HEART: S1, S2. No gallops or murmurs, regular ABDOMEN: Soft, nontender, nondistended. EXTREMITIES: No edema, no cyanosis. DERMATOLOGIC: Warm, dry. No generalized rash. NEUROLOGIC: Alert and oriented x 3, grossly nonfocal. PSYCHIATRIC: Cooperative, calm. PIV looks ok General: Alert, Oriented X3, Cooperative, No acute distress Heart: Regular rate Lungs: Clear Abdomen: Soft, No tenderness, No masses Extremities: No clubbing, No cyanosis, No edema Skin: No rashes, No breakdown, No significant lesion Labs Labs: Laboratory Tests Test 11/13/19 12:52 11/13/19 17:31 11/13/19 20:20 11/14/19 08:04 Glucose (Fingerstick) 333 mg/dL (70-99) 299 mg/dL (70-99) 303 mg/dL (70-99) 257 mg/dL (70-99) Test 11/14/19 08:15 11/14/19 12:18 White Blood Count 17.5 x10^3/uL (4.0-11.0) Red Blood Count 4.98 x10^6/uL (4.30-5.70) Hemoglobin 14.6 g/dL (13.0-17.5) Hematocrit 43.8 % (39.0-53.0) Mean Corpuscular Volume 88 fL (79-100) Mean Corpuscular Hemoglobin 29 pg (25-35) Mean Corpuscular Hemoglobin Concent 33 g/dL (31-37) Red Cell Distribution Width 13.3 % (11.5-14.5) Platelet Count 485 x10^3/uL (140-400) Neutrophils (%) (Auto) 92 % (31-73) Lymphocytes (%) (Auto) 2 % (24-48) Monocytes (%) (Auto) 6 % (0-9) Eosinophils (%) (Auto) 0 % (0-3) Basophils (%) (Auto) 0 % (0-3) Neutrophils # (Auto) 16.1 x10^3/uL (1.8-7.7) Lymphocytes # (Auto) 0.3 x10^3/uL (1.0-4.8) Monocytes # (Auto) 1.1 x10^3/uL (0.0-1.1) Eosinophils # (Auto) 0.0 x10^3/uL (0.0-0.7) Basophils # (Auto) 0.0 x10^3/uL (0.0-0.2) Sodium Level 136 mmol/L (136-145) Potassium Level 4.4 mmol/L (3.5-5.1) Chloride Level 100 mmol/L (98-107) Carbon Dioxide Level 28 mmol/L (21-32) Anion Gap 8 (6-14) Blood Urea Nitrogen 19 mg/dL (8-26) Creatinine 0.7 mg/dL (0.7-1.3) Estimated GFR (Cockcroft-Gault) 119.4 Glucose Level 246 mg/dL (70-99) Calcium Level 7.9 mg/dL (8.5-10.1) Glucose (Fingerstick) 309 mg/dL (70-99) Assessment and Plan Assessmemt and Plan Problems Medical Problems: (1) COVID-19 virus infection Status: Acute (2) Hypoxia Status: Acute (3) Pneumonia due to 2019 novel coronavirus Status: Acute COVID 19 Acute hypoxia Pneumonia Sepsis Moderate malnutrition DM 2 PLAN ICU monitoring Vapotherm at 50% FiO2 Respiratory isolation O2 saturation monitoring Continue antibiotics per ID Continue steroids DVT prophylaxis Home meds Full code Subspecialty input appreciated Prognosis guarded Comment Review of Relevant I have reviewed the following items jameson (where applicable) has been applied. Justicifation of Admission Dx: Justifications for Admission: Justification of Admission Dx: Yes Comminuty Aquired Pneumonia: Hypoxemia MIKE JAIME III DO Nov 14, 2019 12:30
--- NOTE | 2019-11-14 12:43 | NUR ---
SS following up with discharge planning. SS reviewed pt chart and discussed with pt RN. Pt remains on Vapotherm at this time. COVID19 positive. SS will continue to follow for discharge planning.
--- NOTE | 2019-11-14 13:10 | PDOC ---
PULMONARY PROGRESS NOTES DATE: 11/14/19 TIME: 13:09 Subjective remains on Vapotherm 35 L and 50%, feels better, no cp or increased cough Vitals Vital Signs Date Time Temp Pulse Resp B/P (MAP) Pulse Ox O2 Delivery O2 Flow Rate FiO2 11/14/19 12:00 99.1 102 28 109/71 (84) 94 Nasal Cannula 99.1 11/14/19 11:00 35.0 Comments Visual exam preformed as pt. seen during - pandemic alert no distress no accessory muscle use Vapotherm appears comfortable RRR No rash no edema General: Alert, No acute distress Labs Laboratory Tests Test 11/12/19 17:40 11/12/19 22:29 11/13/19 08:29 11/13/19 12:52 Glucose (Fingerstick) 248 mg/dL (70-99) 250 mg/dL (70-99) 222 mg/dL (70-99) 333 mg/dL (70-99) Test 11/13/19 17:31 11/13/19 20:20 11/14/19 08:04 11/14/19 08:15 Glucose (Fingerstick) 299 mg/dL (70-99) 303 mg/dL (70-99) 257 mg/dL (70-99) White Blood Count 17.5 x10^3/uL (4.0-11.0) Red Blood Count 4.98 x10^6/uL (4.30-5.70) Hemoglobin 14.6 g/dL (13.0-17.5) Hematocrit 43.8 % (39.0-53.0) Mean Corpuscular Volume 88 fL (79-100) Mean Corpuscular Hemoglobin 29 pg (25-35) Mean Corpuscular Hemoglobin Concent 33 g/dL (31-37) Red Cell Distribution Width 13.3 % (11.5-14.5) Platelet Count 485 x10^3/uL (140-400) Neutrophils (%) (Auto) 92 % (31-73) Lymphocytes (%) (Auto) 2 % (24-48) Monocytes (%) (Auto) 6 % (0-9) Eosinophils (%) (Auto) 0 % (0-3) Basophils (%) (Auto) 0 % (0-3) Neutrophils # (Auto) 16.1 x10^3/uL (1.8-7.7) Lymphocytes # (Auto) 0.3 x10^3/uL (1.0-4.8) Monocytes # (Auto) 1.1 x10^3/uL (0.0-1.1) Eosinophils # (Auto) 0.0 x10^3/uL (0.0-0.7) Basophils # (Auto) 0.0 x10^3/uL (0.0-0.2) Sodium Level 136 mmol/L (136-145) Potassium Level 4.4 mmol/L (3.5-5.1) Chloride Level 100 mmol/L (98-107) Carbon Dioxide Level 28 mmol/L (21-32) Anion Gap 8 (6-14) Blood Urea Nitrogen 19 mg/dL (8-26) Creatinine 0.7 mg/dL (0.7-1.3) Estimated GFR (Cockcroft-Gault) 119.4 Glucose Level 246 mg/dL (70-99) Calcium Level 7.9 mg/dL (8.5-10.1) Test 11/14/19 12:18 Glucose (Fingerstick) 309 mg/dL (70-99) Laboratory Tests Test 11/13/19 17:31 11/13/19 20:20 11/14/19 08:04 11/14/19 08:15 Glucose (Fingerstick) 299 mg/dL (70-99) 303 mg/dL (70-99) 257 mg/dL (70-99) White Blood Count 17.5 x10^3/uL (4.0-11.0) Red Blood Count 4.98 x10^6/uL (4.30-5.70) Hemoglobin 14.6 g/dL (13.0-17.5) Hematocrit 43.8 % (39.0-53.0) Mean Corpuscular Volume 88 fL (79-100) Mean Corpuscular Hemoglobin 29 pg (25-35) Mean Corpuscular Hemoglobin Concent 33 g/dL (31-37) Red Cell Distribution Width 13.3 % (11.5-14.5) Platelet Count 485 x10^3/uL (140-400) Neutrophils (%) (Auto) 92 % (31-73) Lymphocytes (%) (Auto) 2 % (24-48) Monocytes (%) (Auto) 6 % (0-9) Eosinophils (%) (Auto) 0 % (0-3) Basophils (%) (Auto) 0 % (0-3) Neutrophils # (Auto) 16.1 x10^3/uL (1.8-7.7) Lymphocytes # (Auto) 0.3 x10^3/uL (1.0-4.8) Monocytes # (Auto) 1.1 x10^3/uL (0.0-1.1) Eosinophils # (Auto) 0.0 x10^3/uL (0.0-0.7) Basophils # (Auto) 0.0 x10^3/uL (0.0-0.2) Sodium Level 136 mmol/L (136-145) Potassium Level 4.4 mmol/L (3.5-5.1) Chloride Level 100 mmol/L (98-107) Carbon Dioxide Level 28 mmol/L (21-32) Anion Gap 8 (6-14) Blood Urea Nitrogen 19 mg/dL (8-26) Creatinine 0.7 mg/dL (0.7-1.3) Estimated GFR (Cockcroft-Gault) 119.4 Glucose Level 246 mg/dL (70-99) Calcium Level 7.9 mg/dL (8.5-10.1) Test 11/14/19 12:18 Glucose (Fingerstick) 309 mg/dL (70-99) Medications Active Scripts Medications Dose Route/Sig Max Daily Dose Days Date Category No Active Prescriptions or Reported Medications Rx Comments CXR 11/12 IMPRESSION: Acute alveolar infiltrates mild progression Impression . IMPRESSION: 1. Acute hypoxic respiratory failure secondary to COVID-19 pneumonia- ongoing, 2. Abnormal chest x-ray with faint bilateral patchy infiltrates favoring COVID- 19 pneumonia. 3. No significant tobacco history. 4. Type 2 diabetes. 5. Fever -improving Plan . RECOMMENDATIONS: 1. Continue present oxygen to keep saturation 92 and above, requiring Vapotherm at 35 litres. wean FIO2 slowly, down to 50% 2. Cont. antibiotics 3. Cont. steroids 4. DVT prophylaxis with Lovenox. 5. S/P convalescent plasma on 11/08/2019, on remdesivir, started 11/09 6. Discussed with RN and RT 7. Continue to monitor clinical course closely in icu critically ill, TOTAL CC time 30 min, no overlap DALLIN RICHEY MD Nov 14, 2019 13:10
[2019-11-14] MEDS: INSULIN GLARGINE SYRINGE. SQ SCH (20:46)
[2019-11-15] VITALS (24 sets, daily range): BP systolic 82–121; BP diastolic 43–77
[2019-11-15] MEDS: methylPREDNISolone SOD SUCC PF 40 MG/ML VIAL. IV SCH ×3 (06:22→20:41)
--- NOTE | 2019-11-15 07:28 | PDOC ---
Infectious Disease Note Subjective Subjective Says doing better Denies increase SOA - occ cough still but dry High flow O2 30L/50% No fevers/chills/ better. no diarrhea or cough/rash Vital Sign Vital Signs Vital Signs Date Time Temp Pulse Resp B/P (MAP) Pulse Ox O2 Delivery O2 Flow Rate FiO2 11/15/19 07:00 69 22 82/43 (56) 93 Nasal Cannula 30.0 11/15/19 04:00 98.1 98.1 Physical Exam PHYSICAL EXAM GENERAL: Propped up in bed, alert, calm, in NAD - Looks better HEENT: Oral mucosa moist. No thrush. NECK: Supple. No JVD. LUNGS: Clear bilaterally, No accessory muscle use. HEART: S1, S2. No gallops or murmurs, regular ABDOMEN: Soft, nontender, nondistended. EXTREMITIES: No edema, no cyanosis. DERMATOLOGIC: Warm, dry. No generalized rash. NEUROLOGIC: Alert and oriented x 3, grossly nonfocal. PSYCHIATRIC: Cooperative, calm. PIV looks ok Labs Lab Laboratory Tests Test 11/14/19 08:04 11/14/19 08:15 11/14/19 12:18 11/14/19 17:23 Glucose (Fingerstick) 257 mg/dL (70-99) 309 mg/dL (70-99) 264 mg/dL (70-99) White Blood Count 17.5 x10^3/uL (4.0-11.0) Red Blood Count 4.98 x10^6/uL (4.30-5.70) Hemoglobin 14.6 g/dL (13.0-17.5) Hematocrit 43.8 % (39.0-53.0) Mean Corpuscular Volume 88 fL (79-100) Mean Corpuscular Hemoglobin 29 pg (25-35) Mean Corpuscular Hemoglobin Concent 33 g/dL (31-37) Red Cell Distribution Width 13.3 % (11.5-14.5) Platelet Count 485 x10^3/uL (140-400) Neutrophils (%) (Auto) 92 % (31-73) Lymphocytes (%) (Auto) 2 % (24-48) Monocytes (%) (Auto) 6 % (0-9) Eosinophils (%) (Auto) 0 % (0-3) Basophils (%) (Auto) 0 % (0-3) Neutrophils # (Auto) 16.1 x10^3/uL (1.8-7.7) Lymphocytes # (Auto) 0.3 x10^3/uL (1.0-4.8) Monocytes # (Auto) 1.1 x10^3/uL (0.0-1.1) Eosinophils # (Auto) 0.0 x10^3/uL (0.0-0.7) Basophils # (Auto) 0.0 x10^3/uL (0.0-0.2) Sodium Level 136 mmol/L (136-145) Potassium Level 4.4 mmol/L (3.5-5.1) Chloride Level 100 mmol/L (98-107) Carbon Dioxide Level 28 mmol/L (21-32) Anion Gap 8 (6-14) Blood Urea Nitrogen 19 mg/dL (8-26) Creatinine 0.7 mg/dL (0.7-1.3) Estimated GFR (Cockcroft-Gault) 119.4 Glucose Level 246 mg/dL (70-99) Calcium Level 7.9 mg/dL (8.5-10.1) Micro Microbiology 11/07/19 Blood Culture - Final, Complete NO GROWTH AFTER 5 DAYS Objective Assessment COVID-19 respiratory infection.10/29 -Status post convalescent plasma. -Currently on Remdesivir, 11/09 Fever, likely from above, improved Pulmonary infiltrates, likely from COVID-19 infection. Leukocytosis, on steroids. Type 2 diabetes. Hyperlipidemia. Plan Plan of Care Discontinue ceftriaxone and doxycycline.11/06 - 11/13 Continue Remdesivir, 11/09 - done today Status post convalescent plasma. Steroids per primary Probiotics Airborne isolation for COVID-19 Discussed with nursing staff. ID to sign off JEROMY BASURTO MD Nov 15, 2019 07:28
[2019-11-15] MEDS: BENZONATATE 100 MG CAPSULE. PO SCH ×3 (08:22→20:41)
[2019-11-15] MEDS: ZINC SULFATE 220 MG CAPSULE. PO SCH (08:22)
[2019-11-15] MEDS: LACTOBACILLUS RHAMNOSUS GG 1 CAPSULE. PO SCH ×2 (08:22→20:41)
[2019-11-15] MEDS: FOLIC/VIT B COMP W-C (RENAL) TABLET. PO SCH (08:22)
[2019-11-15] MEDS: MULTIVITAMIN with MINERAL TABLET. PO SCH (08:22)
[2019-11-15] MEDS: ENOXAPARIN 40 MG/0.4 ML SYRINGE. SQ SCH ×2 (08:22→20:41)
[2019-11-15] MEDS: INSULIN LISPRO 300 UNITS/3 ML VIAL. SQ SCH ×3 (08:43→17:31)
[2019-11-15] MEDS: INSULIN GLARGINE SYRINGE. SQ SCH ×2 (09:30→20:42)
[2019-11-15] MEDS ORDERED: DEXTROSE 50% 25 GM / 50ML DISP.SYRIN. IV PRN (09:30)
--- NOTE | 2019-11-15 10:14 | PDOC ---
PULMONARY PROGRESS NOTES DATE: 11/15/19 TIME: 10:12 Subjective remains on Vapotherm 30 L and 50%, feels better, no cp or increased coug, a-febrile overnight no other concerns from nursing Vitals Vital Signs Date Time Temp Pulse Resp B/P (MAP) Pulse Ox O2 Delivery O2 Flow Rate FiO2 11/15/19 09:00 80 37 109/65 (80) 92 Nasal Cannula 30.0 11/15/19 08:00 98.5 98.5 Comments Visual exam preformed as pt. seen during COV pandemic alert no distress no accessory muscle use Vapotherm appears comfortable RRR No rash no edema General: Alert, No acute distress Labs Laboratory Tests Test 11/13/19 12:52 11/13/19 17:31 11/13/19 20:20 11/14/19 08:04 Glucose (Fingerstick) 333 mg/dL (70-99) 299 mg/dL (70-99) 303 mg/dL (70-99) 257 mg/dL (70-99) Test 11/14/19 08:15 11/14/19 12:18 11/14/19 17:23 11/15/19 08:37 White Blood Count 17.5 x10^3/uL (4.0-11.0) Red Blood Count 4.98 x10^6/uL (4.30-5.70) Hemoglobin 14.6 g/dL (13.0-17.5) Hematocrit 43.8 % (39.0-53.0) Mean Corpuscular Volume 88 fL (79-100) Mean Corpuscular Hemoglobin 29 pg (25-35) Mean Corpuscular Hemoglobin Concent 33 g/dL (31-37) Red Cell Distribution Width 13.3 % (11.5-14.5) Platelet Count 485 x10^3/uL (140-400) Neutrophils (%) (Auto) 92 % (31-73) Lymphocytes (%) (Auto) 2 % (24-48) Monocytes (%) (Auto) 6 % (0-9) Eosinophils (%) (Auto) 0 % (0-3) Basophils (%) (Auto) 0 % (0-3) Neutrophils # (Auto) 16.1 x10^3/uL (1.8-7.7) Lymphocytes # (Auto) 0.3 x10^3/uL (1.0-4.8) Monocytes # (Auto) 1.1 x10^3/uL (0.0-1.1) Eosinophils # (Auto) 0.0 x10^3/uL (0.0-0.7) Basophils # (Auto) 0.0 x10^3/uL (0.0-0.2) Sodium Level 136 mmol/L (136-145) Potassium Level 4.4 mmol/L (3.5-5.1) Chloride Level 100 mmol/L (98-107) Carbon Dioxide Level 28 mmol/L (21-32) Anion Gap 8 (6-14) Blood Urea Nitrogen 19 mg/dL (8-26) Creatinine 0.7 mg/dL (0.7-1.3) Estimated GFR (Cockcroft-Gault) 119.4 Glucose Level 246 mg/dL (70-99) Calcium Level 7.9 mg/dL (8.5-10.1) Glucose (Fingerstick) 309 mg/dL (70-99) 264 mg/dL (70-99) 220 mg/dL (70-99) Laboratory Tests Test 11/14/19 12:18 11/14/19 17:23 11/15/19 08:37 Glucose (Fingerstick) 309 mg/dL (70-99) 264 mg/dL (70-99) 220 mg/dL (70-99) Medications Active Scripts Medications Dose Route/Sig Max Daily Dose Days Date Category No Active Prescriptions or Reported Medications Rx Comments CXR 11/12 IMPRESSION: Acute alveolar infiltrates mild progression Impression . IMPRESSION: 1. Acute hypoxic respiratory failure secondary to COVID-19 pneumonia- ongoing, improving slowly 2. Abnormal chest x-ray with faint bilateral patchy infiltrates favoring COVID- 19 pneumonia. 3. No significant tobacco history. 4. Type 2 diabetes. 5. Fever -resolved 6. leukocytosis -- worsening Plan . RECOMMENDATIONS: Slowly clinically improving Continue present oxygen to keep saturation 92 and above, requiring Vapotherm at 30 litres. wean FIO2 slowly, down to 50%, will try pt. on HFNC today has competed full course of antibiotics Cont. steroids, will reduce dode today, will need total 10 days of steroid treatment DVT prophylaxis with Lovenox. S/P convalescent plasma on 11/08/2019, on remdesivir, started 11/09 Continue to monitor clinical course Discussed with RN and RT DALLIN RICHEY MD Nov 15, 2019 10:14
--- NOTE | 2019-11-15 10:55 | NUR ---
Pt switched over from Vapotherm to 8LNC. Tolerating well. O2 96%, RR 25. Will continue to monitor.
[2019-11-15] MEDS: IV NORMAL SALINE 1000ML BAG 1,000 ML IV SCH (13:59)
--- NOTE | 2019-11-15 15:32 | NUR ---
SS following up with discharge planning. SS reviewed pt chart and discussed with pt RN. Pt now on 8 liters nasal canula. Antibiotics discontinued. COVID19 positive. SS will continue to follow for discharge planning.
--- NOTE | 2019-11-15 22:14 | PDOC ---
PROGRESS NOTES Date of Service: DATE: 11/15/19 TIME: 22:12 Chief Complaint Chief Complaint COVID 19 Acute hypoxia Pneumonia Sepsis Moderate malnutrition DM 2 Plan: supportive measures still requiring a significant amount of oxygen but clinically looks better hyperglycemia addressed. further recommendations based on clinical course. History of Present Illness History of Present Illness 11/15/2019 No acute events reported overnight, patient continues to require a significant amount of oxygen all concerns addressed to the best of my abilities. 11/14/2019 Patient still on Vapotherm Discussed with RN Chart reviewed 11/13/2019 Patient seen and examined in the Covid-19 ICU He is on 35 L Vapotherm Chart reviewed Discussed with RN 11/12/2019 Patient seen and examined in the ICU Resting comfortably, on Vapotherm at 40 L and 100% Afebrile Received convalescent plasma on 11/08/19 Started Remdesivir 11/10/19 Discussed with RN Chart reviewed 11/11/2019 Patient is seen and examined Started Remdesivir 11/09 Discussed with RN Resting comfortably on Vapotherm Charts reviewed 11/10/2019 Patient is seen and examined Patient is sitting up and resting comfortably on Vapotherm Discussed with RN Charts reviewed 11/09/2019 Patient seen and examined Resting comfortably On vapotherm Received Plasma 11/07 Discussed with RN Charts reviewed History of Present Illness History of Present Illness Mr. Brown is a 48 year old male admit with worsening symptoms of cough, fever, trouble breathing and generalized weakness. he appears listless and is lethargic, Patient has been sick for about 10 days, he was tested positive for COVID-19 on October 29 at an outside facility. admit from ER fro new hypoxia and trouble breathing, Patient denies any chest pain, no abdominal pain, no nausea vomiting. Past Medical History Cardiovascular: Hyperlipidemia Pulmonary: No pertinent hx CENTRAL NERVOUS SYSTEM: Other GI: No pertinent hx Heme/Onc: No pertinent hx Hepatobiliary: No pertinent hx Psych: No pertinent hx Musculoskeletal: low back pain, Osteoarthritis Rheumatologic: No pertinent hx Infectious disease: No pertinent hx Renal/: No pertinent hx Endocrine: Diabetes Past Surgical History Past Surgical History: Other Family History Family History: Diabetes Social History Smoke: No ALCOHOL: none Drugs: None Vitals Vitals Vital Signs Date Time Temp Pulse Resp B/P (MAP) Pulse Ox O2 Delivery O2 Flow Rate FiO2 8/19/20 21:00 73 25 118/65 (82) 94 Nasal Cannula 6.0 11/15/19 20:00 99.3 99.3 Physical Exam Physical Exam GENERAL: Propped up in bed, alert, calm, in NAD - Looks better HEENT: Oral mucosa moist. No thrush. NECK: Supple. No JVD. LUNGS: Clear bilaterally, No accessory muscle use. HEART: S1, S2. No gallops or murmurs, regular ABDOMEN: Soft, nontender, nondistended. EXTREMITIES: No edema, no cyanosis. DERMATOLOGIC: Warm, dry. No generalized rash. NEUROLOGIC: Alert and oriented x 3, grossly nonfocal. PSYCHIATRIC: Cooperative, calm. PIV looks ok General: Alert, Oriented X3, Cooperative, No acute distress Heart: Regular rate Abdomen: Soft, No tenderness, No masses Extremities: No clubbing, No cyanosis, No edema Skin: No rashes, No breakdown, No significant lesion Labs LABS Laboratory Tests Test 11/15/19 08:37 11/15/19 12:39 11/15/19 17:28 11/15/19 20:53 Glucose (Fingerstick) 220 mg/dL (70-99) 299 mg/dL (70-99) 297 mg/dL (70-99) 273 mg/dL (70-99) Assessment and Plan Assessmemt and Plan Problems Medical Problems: (1) COVID-19 virus infection Status: Acute (2) Hypoxia Status: Acute (3) Pneumonia due to 2019 novel coronavirus Status: Acute Comment Review of Relevant I have reviewed the following items jameson (where applicable) has been applied. Labs Laboratory Tests Test 11/14/19 08:04 11/14/19 08:15 11/14/19 12:18 11/14/19 17:23 Glucose (Fingerstick) 257 mg/dL (70-99) 309 mg/dL (70-99) 264 mg/dL (70-99) White Blood Count 17.5 x10^3/uL (4.0-11.0) Red Blood Count 4.98 x10^6/uL (4.30-5.70) Hemoglobin 14.6 g/dL (13.0-17.5) Hematocrit 43.8 % (39.0-53.0) Mean Corpuscular Volume 88 fL (79-100) Mean Corpuscular Hemoglobin 29 pg (25-35) Mean Corpuscular Hemoglobin Concent 33 g/dL (31-37) Red Cell Distribution Width 13.3 % (11.5-14.5) Platelet Count 485 x10^3/uL (140-400) Neutrophils (%) (Auto) 92 % (31-73) Lymphocytes (%) (Auto) 2 % (24-48) Monocytes (%) (Auto) 6 % (0-9) Eosinophils (%) (Auto) 0 % (0-3) Basophils (%) (Auto) 0 % (0-3) Neutrophils # (Auto) 16.1 x10^3/uL (1.8-7.7) Lymphocytes # (Auto) 0.3 x10^3/uL (1.0-4.8) Monocytes # (Auto) 1.1 x10^3/uL (0.0-1.1) Eosinophils # (Auto) 0.0 x10^3/uL (0.0-0.7) Basophils # (Auto) 0.0 x10^3/uL (0.0-0.2) Sodium Level 136 mmol/L (136-145) Potassium Level 4.4 mmol/L (3.5-5.1) Chloride Level 100 mmol/L (98-107) Carbon Dioxide Level 28 mmol/L (21-32) Anion Gap 8 (6-14) Blood Urea Nitrogen 19 mg/dL (8-26) Creatinine 0.7 mg/dL (0.7-1.3) Estimated GFR (Cockcroft-Gault) 119.4 Glucose Level 246 mg/dL (70-99) Calcium Level 7.9 mg/dL (8.5-10.1) Test 11/15/19 08:37 11/15/19 12:39 11/15/19 17:28 11/15/19 20:53 Glucose (Fingerstick) 220 mg/dL (70-99) 299 mg/dL (70-99) 297 mg/dL (70-99) 273 mg/dL (70-99) Laboratory Tests Test 11/15/19 08:37 11/15/19 12:39 11/15/19 17:28 11/15/19 20:53 Glucose (Fingerstick) 220 mg/dL (70-99) 299 mg/dL (70-99) 297 mg/dL (70-99) 273 mg/dL (70-99) Microbiology 11/07/19 Blood Culture - Final, Complete NO GROWTH AFTER 5 DAYS Medications Current Medications Ceftriaxone Sodium (Rocephin) 1 gm 1X ONCE IVP Last administered on 11/07/19at 14:00; Start 11/07/19 at 12:45; Stop 11/07/19 at 12:47; Status DC Ondansetron HCl (Zofran) 4 mg PRN Q8HRS PRN IV NAUSEA/VOMITING; Start 11/07/19 at 13:15; Stop 11/08/19 at 13:14; Status DC Sodium Chloride 1,000 ml @ 75 mls/hr [id number] IV Last administered on 11/07/19at 18:12; Start 11/07/19 at 13:13; Stop 11/08/19 at 13:12; Status DC Enoxaparin Sodium (Lovenox Per Pharmacy Prophylaxis Dosing) 1 each PRN DAILY PRN MC SEE COMMENTS; Start 11/07/19 at 15:30 Zinc Sulfate (Orazinc) 220 mg DAILY PO Last administered on 11/15/19at 08:22; Start 11/07/19 at 16:00 Vitamin B Complex/ Vitamin C (Lien-Anant) 1 tab DAILY PO Last administered on 11/15/19at 08:22; Start 11/07/19 at 16:00 Insulin Human Lispro (HumaLOG) 0-7 UNITS TIDWMEALS SQ Last administered on 11/09/19at 17:59; Start 11/07/19 at 17:00; Stop 11/09/19 at 21:07; Status DC Dextrose (Dextrose 50%-Water Syringe) 12.5 gm PRN Q15MIN PRN IV SEE COMMENTS Last administered on 11/14/19at 00:27; Start 11/07/19 at 15:30 Potassium Chloride (Klor-Con) 40 meq 1X ONCE PO Last administered on 11/07/19at 18:12; Start 11/07/19 at 15:30; Stop 11/07/19 at 15:31; Status DC Enoxaparin Sodium (Lovenox 40mg Syringe) 40 mg BID SQ Last administered on 11/15/19at 20:41; Start 11/07/19 at 21:00 Methylprednisolone Sodium Succinate (SOLU-Medrol 40MG VIAL) 40 mg Q8HRS IV Last administered on 11/15/19 06:22; Start 11/07/19 at 22:00; Stop 11/15/19 at 10:11; Status DC Ceftriaxone Sodium (Rocephin) 1 gm Q24H IVP Last administered on 11/13/19 17:20; Start 11/08/19 at 17:00; Stop 11/14/19 at 07:59; Status DC Doxycycline Hyclate (Vibra-Tab) 100 mg BID PO Last administered on 11/13/19at 20:53; Start 11/07/19 at 20:00; Stop 11/14/19 at 07:59; Status DC Insulin Glargine (Lantus Syringe) 12 unit QHS SQ Last administered on 11/14/19 20:46; Start 11/07/19 at 21:00; Stop 11/15/19 at 09:29; Status DC Benzonatate (Tessalon Perle) 100 mg [id number] PO Last administered on 11/15/19at 20:41; Start 11/07/19 at 21:00 Guaifenesin/ Codeine Phosphate (Robitussin Ac) 5 ml PRN Q6HRS PRN PO COUGH Last administered on 11/08/19 10:41; Start 11/07/19 at 19:15 Oxycodone/ Acetaminophen (Percocet 5/325) 1 tab PRN Q4HRS PRN PO PAIN Last administered on 11/13/19at 20:53; Start 11/07/19 at 21:30 Acetaminophen (Tylenol) 650 mg PRN Q6HRS PRN PO FEVER > 100.3'F Last administered on 11/13/19at 15:33; Start 11/08/19 at 09:30 Sterile Water (WATER for RESP) 1,000 ml CONT PRN INH VIA VAPOTHERM DEVICE Last administered on 11/13/19 15:46; Start 11/08/19 at 12:45 Dexmedetomidine HCl 400 mcg/ Sodium Chloride 100 ml @ 0 mls/hr CONT PRN IV anxiety Last administered on 11/11/19at 14:52; Start 11/08/19 at 19:00; Stop 11/15/19 at 10:11; Status DC Multivitamins (Thera M Plus) 1 tab DAILY PO Last administered on 11/15/19 08:22; Start 11/09/19 at 12:00 Lactobacillus Rhamnosus (Culturelle) 1 cap BID PO Last administered on 11/15/19at 20:41; Start 11/09/19 at 21:00 Sodium Chloride 1,000 ml @ 75 mls/hr [id number] IV Last administered on 11/15/19at 13:59; Start 11/09/19 at 18:30 Insulin Human Lispro (HumaLOG) 0-7 UNITS QIDACHS SQ Last administered on 11/15/19at 08:43; Start 11/09/19 at 21:15; Stop 11/15/19 at 09:29; Status DC Non-Formulary Medication 1 ea/ Sodium Chloride 210 ml @ 210 mls/hr 1X ONCE IV Last administered on 11/10/19 10:19; Start 11/10/19 at 10:00; Stop 11/10/19 at 10:59; Status DC Non-Formulary Medication 1 ea/ Sodium Chloride 230 ml @ 460 mls/hr Q24H IV Last administered on 11/14/19at 09:59; Start 11/11/19 at 10:00; Stop 11/14/19 at 10:29; Status DC Insulin Glargine (Lantus Syringe) 12 unit BID SQ Last administered on 11/15/19at 20:42; Start 11/15/19 at 09:30 Insulin Human Lispro (HumaLOG) 0-9 UNITS TIDWMEALS SQ Last administered on 11/15/19at 17:31; Start 11/15/19 at 12:00 Dextrose (Dextrose 50%-Water Syringe) 12.5 gm PRN Q15MIN PRN IV SEE COMMENTS; Start 11/15/19 at 09:30; Status UNV Methylprednisolone Sodium Succinate (SOLU-Medrol 40MG VIAL) 40 mg Q12HR IV Last administered on 11/15/19at 20:41; Start 11/15/19 at 10:15 Active Scripts Active No Active Prescriptions or Reported Medications Vitals/I & O Vital Sign - Last 24 Hours 11/14/19 11/15/19 11/15/19 11/15/19 23:00 00:00 00:00 00:10 Temp 98.7 98.7 Pulse 72 62 Resp 20 19 B/P (MAP) 108/72 (84) 101/62 (75) Pulse Ox 96 98 96 O2 Delivery Nasal Cannula Nasal Cannula Nasal Cannula vapotherm O2 Flow Rate 35.0 30.0 30.0 30.0 11/15/19 11/15/19 11/15/19 11/15/19 01:00 02:00 03:00 03:35 Pulse 54 57 52 Resp 17 18 18 B/P (MAP) 121/77 (92) 103/61 (75) 102/60 (74) Pulse Ox 96 96 97 96 O2 Delivery Nasal Cannula Nasal Cannula Nasal Cannula vapotherm O2 Flow Rate 35.0 30.0 30.0 30.0 11/15/19 11/15/19 11/15/19 11/15/19 04:00 04:00 05:00 06:00 Temp 98.1 98.1 Pulse 55 56 58 Resp 18 20 20 B/P (MAP) 91/54 (66) 91/49 (63) 107/55 (72) Pulse Ox 97 95 97 O2 Delivery Nasal Cannula Nasal Cannula Nasal Cannula Nasal Cannula O2 Flow Rate 30.0 30.0 30.0 30.0 11/15/19 11/15/19 11/15/19 11/15/19 07:00 07:41 08:00 08:00 Temp 98.5 98.5 Pulse 69 92 Resp 22 34 B/P (MAP) 82/43 (56) 103/60 (74) Pulse Ox 93 95 96 O2 Delivery Nasal Cannula vapotherm Nasal Cannula Nasal Cannula O2 Flow Rate 30.0 30.0 30.0 30.0 11/15/19 11/15/19 11/15/19 11/15/19 09:00 10:00 10:55 11:00 Pulse 80 86 78 Resp 37 25 21 B/P (MAP) 109/65 (80) 102/71 (81) 99/62 (74) Pulse Ox 92 92 95 O2 Delivery Nasal Cannula Nasal Cannula High Flow Nasal Cannula Nasal Cannula O2 Flow Rate 30.0 30.0 8.0 8.0 11/15/19 11/15/19 11/15/19 11/15/19 12:00 12:00 12:09 13:00 Temp 98.6 98.6 Pulse 85 97 Resp 27 28 B/P (MAP) 112/69 (83) 110/65 (80) Pulse Ox 90 96 94 O2 Delivery Nasal Cannula Nasal Cannula High Flow Nasal Cannula Nasal Cannula O2 Flow Rate 8.0 8.0 8.0 8.0 11/15/19 11/15/19 11/15/19 11/15/19 14:00 15:00 16:00 16:00 Temp 98.1 98.1 Pulse 81 74 82 Resp 29 22 28 B/P (MAP) 95/52 (66) 97/56 (70) 92/64 (73) Pulse Ox 95 95 94 O2 Delivery Nasal Cannula Nasal Cannula Nasal Cannula Nasal Cannula O2 Flow Rate 8.0 8.0 6.0 6.0 11/15/19 11/15/19 11/15/19 11/15/19 17:00 18:00 19:00 20:00 Temp 99.3 99.3 Pulse 72 82 77 80 Resp 28 28 21 21 B/P (MAP) 102/65 (77) 97/56 (70) 119/71 (87) 104/64 (77) Pulse Ox 96 97 97 95 O2 Delivery Nasal Cannula Nasal Cannula Nasal Cannula Nasal Cannula O2 Flow Rate 6.0 6.0 6.0 6.0 11/15/19 11/15/19 20:00 21:00 Pulse 73 Resp 25 B/P (MAP) 118/65 (82) Pulse Ox 94 O2 Delivery Nasal Cannula Nasal Cannula O2 Flow Rate 6.0 6.0 Intake and Output 11/14/19 11/14/19 11/15/19 14:59 22:59 06:59 Intake Total 120 ml 1066 ml 1383 ml Output Total 700 ml 1200 ml 950 ml Balance -580 ml -134 ml 433 ml Justicifation of Admission Dx: Justifications for Admission: Justification of Admission Dx: Yes Comminuty Aquired Pneumonia: Hypoxemia PIO MENDIOLA MD Nov 15, 2019 22:14
[2019-11-16] VITALS (15 sets, daily range): BP systolic 75–108; BP diastolic 46–69
[2019-11-16] MEDS: IV NORMAL SALINE 1000ML BAG 1,000 ML IV SCH (02:56)
[2019-11-16] MEDS: FOLIC/VIT B COMP W-C (RENAL) TABLET. PO SCH (08:08)
[2019-11-16] MEDS: LACTOBACILLUS RHAMNOSUS GG 1 CAPSULE. PO SCH ×2 (08:08→20:43)
[2019-11-16] MEDS: MULTIVITAMIN with MINERAL TABLET. PO SCH (08:08)
[2019-11-16] MEDS: ENOXAPARIN 40 MG/0.4 ML SYRINGE. SQ SCH ×2 (08:09→20:43)
[2019-11-16] MEDS: ZINC SULFATE 220 MG CAPSULE. PO SCH (08:09)
[2019-11-16] MEDS: BENZONATATE 100 MG CAPSULE. PO SCH ×3 (08:09→20:43)
[2019-11-16] MEDS: INSULIN GLARGINE SYRINGE. SQ SCH ×2 (08:50→20:44)
[2019-11-16] MEDS: INSULIN LISPRO 300 UNITS/3 ML VIAL. SQ SCH ×3 (08:52→17:45)
[2019-11-16] MEDS: methylPREDNISolone SOD SUCC PF 40 MG/ML VIAL. IV SCH (08:54)
--- NOTE | 2019-11-16 09:19 | PDOC ---
PROGRESS NOTES Date of Service: DATE: 11/16/19 TIME: 09:17 Chief Complaint Chief Complaint COVID 19 Acute hypoxia Pneumonia Sepsis Moderate malnutrition DM 2 Plan: supportive measures In light of his great improvement and very little oxygen demand he will be moved to the regular floor to continue with his recovery hyperglycemia addressed. further recommendations based on clinical course. History of Present Illness History of Present Illness 11/16/2019 No acute events reported overnight, case discussed with nursing staff patient in no acute distress no complaints during my visit 11/15/2019 No acute events reported overnight, patient continues to require a significant amount of oxygen all concerns addressed to the best of my abilities. 11/14/2019 Patient still on Vapotherm Discussed with RN Chart reviewed 11/13/2019 Patient seen and examined in the Covid-19 ICU He is on 35 L Vapotherm Chart reviewed Discussed with RN 11/12/2019 Patient seen and examined in the ICU Resting comfortably, on Vapotherm at 40 L and 100% Afebrile Received convalescent plasma on 11/08/19 Started Remdesivir 11/10/19 Discussed with RN Chart reviewed 11/11/2019 Patient is seen and examined Started Remdesivir 11/09 Discussed with RN Resting comfortably on Vapotherm Charts reviewed 11/10/2019 Patient is seen and examined Patient is sitting up and resting comfortably on Vapotherm Discussed with RN Charts reviewed 11/09/2019 Patient seen and examined Resting comfortably On vapotherm Received Plasma 11/07 Discussed with RN Charts reviewed History of Present Illness History of Present Illness Mr. Brown is a 48 year old male admit with worsening symptoms of cough, fever, trouble breathing and generalized weakness. he appears listless and is lethargic, Patient has been sick for about 10 days, he was tested positive for COVID-19 on October 29 at an outside facility. admit from ER fro new hypoxia and trouble breathing, Patient denies any chest pain, no abdominal pain, no nausea vomiting. Past Medical History Cardiovascular: Hyperlipidemia Pulmonary: No pertinent hx CENTRAL NERVOUS SYSTEM: Other GI: No pertinent hx Heme/Onc: No pertinent hx Hepatobiliary: No pertinent hx Psych: No pertinent hx Musculoskeletal: low back pain, Osteoarthritis Rheumatologic: No pertinent hx Infectious disease: No pertinent hx Renal/: No pertinent hx Endocrine: Diabetes Past Surgical History Past Surgical History: Other Family History Family History: Diabetes Social History Smoke: No ALCOHOL: none Drugs: None Vitals Vitals Vital Signs Date Time Temp Pulse Resp B/P (MAP) Pulse Ox O2 Delivery O2 Flow Rate FiO2 11/16/19 08:25 97.6 65 20 89/53 (65) 94 Nasal Cannula 4.0 97.6 Physical Exam Physical Exam GENERAL: Propped up in bed, alert, calm, in NAD - Looks better HEENT: Oral mucosa moist. No thrush. NECK: Supple. No JVD. LUNGS: Clear bilaterally, No accessory muscle use. HEART: S1, S2. No gallops or murmurs, regular ABDOMEN: Soft, nontender, nondistended. EXTREMITIES: No edema, no cyanosis. DERMATOLOGIC: Warm, dry. No generalized rash. NEUROLOGIC: Alert and oriented x 3, grossly nonfocal. PSYCHIATRIC: Cooperative, calm. PIV looks ok General: Alert, Oriented X3, Cooperative, No acute distress Heart: Regular rate Abdomen: Soft, No tenderness, No masses Extremities: No clubbing, No cyanosis, No edema Skin: No rashes, No breakdown, No significant lesion Labs LABS Laboratory Tests Test 11/15/19 12:39 11/15/19 17:28 11/15/19 20:53 11/16/19 08:40 Glucose (Fingerstick) 299 mg/dL (70-99) 297 mg/dL (70-99) 273 mg/dL (70-99) 262 mg/dL (70-99) Assessment and Plan Assessmemt and Plan Problems Medical Problems: (1) COVID-19 virus infection Status: Acute (2) Hypoxia Status: Acute (3) Pneumonia due to 2019 novel coronavirus Status: Acute Comment Review of Relevant I have reviewed the following items jameson (where applicable) has been applied. Labs Laboratory Tests Test 11/14/19 12:18 11/14/19 17:23 11/15/19 08:37 11/15/19 12:39 Glucose (Fingerstick) 309 mg/dL (70-99) 264 mg/dL (70-99) 220 mg/dL (70-99) 299 mg/dL (70-99) Test 11/15/19 17:28 11/15/19 20:53 11/16/19 08:40 Glucose (Fingerstick) 297 mg/dL (70-99) 273 mg/dL (70-99) 262 mg/dL (70-99) Laboratory Tests Test 11/15/19 12:39 11/15/19 17:28 11/15/19 20:53 11/16/19 08:40 Glucose (Fingerstick) 299 mg/dL (70-99) 297 mg/dL (70-99) 273 mg/dL (70-99) 262 mg/dL (70-99) Microbiology 11/07/19 Blood Culture - Final, Complete NO GROWTH AFTER 5 DAYS Medications Current Medications Ceftriaxone Sodium (Rocephin) 1 gm 1X ONCE IVP Last administered on 11/07/19at 14:00; Start 11/07/19 at 12:45; Stop 11/07/19 at 12:47; Status DC Ondansetron HCl (Zofran) 4 mg PRN Q8HRS PRN IV NAUSEA/VOMITING; Start 11/07/19 at 13:15; Stop 11/08/19 at 13:14; Status DC Sodium Chloride 1,000 ml @ 75 mls/hr [id number] IV Last administered on 11/07/19at 18:12; Start 11/07/19 at 13:13; Stop 11/08/19 at 13:12; Status DC Enoxaparin Sodium (Lovenox Per Pharmacy Prophylaxis Dosing) 1 each PRN DAILY PRN MC SEE COMMENTS; Start 11/07/19 at 15:30 Zinc Sulfate (Orazinc) 220 mg DAILY PO Last administered on 11/16/19at 08:09; Start 11/07/19 at 16:00 Vitamin B Complex/ Vitamin C (Lien-Anant) 1 tab DAILY PO Last administered on 11/16/19at 08:08; Start 11/07/19 at 16:00 Insulin Human Lispro (HumaLOG) 0-7 UNITS TIDWMEALS SQ Last administered on 11/09/19at 17:59; Start 11/07/19 at 17:00; Stop 11/09/19 at 21:07; Status DC Dextrose (Dextrose 50%-Water Syringe) 12.5 gm PRN Q15MIN PRN IV SEE COMMENTS Last administered on 11/14/19at 00:27; Start 11/07/19 at 15:30 Potassium Chloride (Klor-Con) 40 meq 1X ONCE PO Last administered on 11/07/19at 18:12; Start 11/07/19 at 15:30; Stop 11/07/19 at 15:31; Status DC Enoxaparin Sodium (Lovenox 40mg Syringe) 40 mg BID SQ Last administered on 11/16/19 08:09; Start 11/07/19 at 21:00 Methylprednisolone Sodium Succinate (SOLU-Medrol 40MG VIAL) 40 mg Q8HRS IV Last administered on 11/15/19at 06:22; Start 11/07/19 at 22:00; Stop 11/15/19 at 10:11; Status DC Ceftriaxone Sodium (Rocephin) 1 gm Q24H IVP Last administered on 11/13/19 17:20; Start 11/08/19 at 17:00; Stop 11/14/19 at 07:59; Status DC Doxycycline Hyclate (Vibra-Tab) 100 mg BID PO Last administered on 11/13/19at 20:53; Start 11/07/19 at 20:00; Stop 11/14/19 at 07:59; Status DC Insulin Glargine (Lantus Syringe) 12 unit QHS SQ Last administered on 11/14/19at 20:46; Start 11/07/19 at 21:00; Stop 11/15/19 at 09:29; Status DC Benzonatate (Tessalon Perle) 100 mg [id number] PO Last administered on 11/16/19 08:09; Start 11/07/19 at 21:00 Guaifenesin/ Codeine Phosphate (Robitussin Ac) 5 ml PRN Q6HRS PRN PO COUGH Last administered on 11/08/19at 10:41; Start 11/07/19 at 19:15 Oxycodone/ Acetaminophen (Percocet 5/325) 1 tab PRN Q4HRS PRN PO PAIN Last administered on 11/13/19at 20:53; Start 11/07/19 at 21:30 Acetaminophen (Tylenol) 650 mg PRN Q6HRS PRN PO FEVER > 100.3'F Last administered on 11/13/19at 15:33; Start 11/08/19 at 09:30 Sterile Water (WATER for RESP) 1,000 ml CONT PRN INH VIA VAPOTHERM DEVICE Last administered on 11/13/19at 15:46; Start 11/08/19 at 12:45 Dexmedetomidine HCl 400 mcg/ Sodium Chloride 100 ml @ 0 mls/hr CONT PRN IV anxiety Last administered on 11/11/19 14:52; Start 11/08/19 at 19:00; Stop 10/27 12/16 at 10:11; Status DC Multivitamins (Thera M Plus) 1 tab DAILY PO Last administered on 11/16/19 08:08; Start 11/09/19 at 12:00 Lactobacillus Rhamnosus (Culturelle) 1 cap BID PO Last administered on 11/16/19 08:08; Start 11/09/19 at 21:00 Sodium Chloride 1,000 ml @ 75 mls/hr [id number] IV Last administered on 11/16/19 02:56; Start 11/09/19 at 18:30 Insulin Human Lispro (HumaLOG) 0-7 UNITS QIDACHS SQ Last administered on 11/15/19 08:43; Start 11/09/19 at 21:15; Stop 11/15/19 at 09:29; Status DC Non-Formulary Medication 1 ea/ Sodium Chloride 210 ml @ 210 mls/hr 1X ONCE IV Last administered on 11/10/19at 10:19; Start 11/10/19 at 10:00; Stop 11/10/19 at 10:59; Status DC Non-Formulary Medication 1 ea/ Sodium Chloride 230 ml @ 460 mls/hr Q24H IV Las t administered on 11/14/19at 09:59; Start 11/11/19 at 10:00; Stop 11/14/19 at 10:29; Status DC Insulin Glargine (Lantus Syringe) 12 unit BID SQ Last administered on 11/16/19at 08:50; Start 11/15/19 at 09:30 Insulin Human Lispro (HumaLOG) 0-9 UNITS TIDWMEALS SQ Last administered on 11/16/19 08:52; Start 11/15/19 at 12:00 Dextrose (Dextrose 50%-Water Syringe) 12.5 gm PRN Q15MIN PRN IV SEE COMMENTS; Start 11/15/19 at 09:30; Status UNV Methylprednisolone Sodium Succinate (SOLU-Medrol 40MG VIAL) 40 mg Q12HR IV Last administered on 11/16/19at 08:54; Start 11/15/19 at 10:15 Active Scripts Active No Active Prescriptions or Reported Medications Vitals/I & O Vital Sign - Last 24 Hours 11/15/19 11/15/19 11/15/19 11/15/19 10:00 10:55 11:00 12:00 Pulse 86 78 Resp 21 B/P (MAP) 102/71 (81) 99/62 (74) Pulse Ox 92 95 O2 Delivery Nasal Cannula High Flow Nasal Cannula Nasal Cannula Nasal Cannula O2 Flow Rate 30.0 8.0 8.0 8.0 11/15/19 11/15/19 11/15/19 11/15/19 12:00 12:09 13:00 14:00 Temp 98.6 98.6 Pulse 85 97 81 Resp 29 B/P (MAP) 112/69 (83) 110/65 (80) 95/52 (66) Pulse Ox 90 96 94 95 O2 Delivery Nasal Cannula High Flow Nasal Cannula Nasal Cannula Nasal Cannula O2 Flow Rate 8.0 8.0 8.0 8.0 11/15/19 11/15/19 11/15/19 11/15/19 15:00 16:00 16:00 17:00 Temp 98.1 98.1 Pulse 74 82 72 Resp 28 B/P (MAP) 97/56 (70) 92/64 (73) 102/65 (77) Pulse Ox 95 94 96 O2 Delivery Nasal Cannula Nasal Cannula Nasal Cannula Nasal Cannula O2 Flow Rate 8.0 6.0 6.0 6.0 11/15/19 11/15/19 11/15/19 11/15/19 18:00 19:00 20:00 20:00 Temp 99.3 99.3 Pulse 82 77 80 Resp 21 B/P (MAP) 97/56 (70) 119/71 (87) 104/64 (77) Pulse Ox 97 97 95 O2 Delivery Nasal Cannula Nasal Cannula Nasal Cannula Nasal Cannula O2 Flow Rate 6.0 6.0 6.0 6.0 11/15/19 11/15/19 11/15/19 11/16/19 21:00 22:00 23:00 00:00 Temp 98.3 98.3 Pulse 73 57 58 65 Resp 19 16 17 B/P (MAP) 118/65 (82) 119/70 (86) 103/61 (75) 106/62 (77) Pulse Ox 94 96 96 96 O2 Delivery Nasal Cannula Nasal Cannula Nasal Cannula Nasal Cannula O2 Flow Rate 6.0 6.0 6.0 6.0 11/16/19 11/16/19 11/16/19 11/16/19 00:00 01:00 02:00 03:00 Pulse 60 60 61 Resp 16 18 22 B/P (MAP) 97/56 (70) 103/63 (76) 106/61 (76) Pulse Ox 95 96 96 O2 Delivery Nasal Cannula Nasal Cannula Nasal Cannula Nasal Cannula O2 Flow Rate 6.0 5.0 5.0 5.0 11/16/19 11/16/19 11/16/19 11/16/19 04:00 04:00 05:00 06:00 Temp 98.6 98.6 Pulse 54 55 50 Resp 22 19 20 B/P (MAP) 78/50 (59) 75/46 (56) 96/57 (70) Pulse Ox 97 96 97 O2 Delivery Nasal Cannula Nasal Cannula Nasal Cannula Nasal Cannula O2 Flow Rate 5.0 4.0 4.0 4.0 11/16/19 11/16/19 11/16/19 07:08 08:00 08:25 Temp 97.6 97.6 Pulse 56 65 Resp 16 20 B/P (MAP) 85/53 (64) 89/53 (65) Pulse Ox 97 94 O2 Delivery Nasal Cannula Nasal Cannula Nasal Cannula O2 Flow Rate 4.0 4.0 4.0 Intake and Output 11/15/19 11/15/19 11/16/19 15:00 23:00 07:00 Intake Total 480 ml 1101 ml 890 ml Output Total 1260 ml 900 ml 900 ml Balance -780 ml 201 ml -10 ml Justicifation of Admission Dx: Justifications for Admission: Justification of Admission Dx: Yes Comminuty Aquired Pneumonia: Hypoxemia PIO MENDIOLA MD Nov 16, 2019 09:19
--- NOTE | 2019-11-16 09:32 | PDOC ---
PULMONARY PROGRESS NOTES DATE: 11/16/19 TIME: 09:29 Subjective doing well on nasal canula Vitals Vital Signs Date Time Temp Pulse Resp B/P (MAP) Pulse Ox O2 Delivery O2 Flow Rate FiO2 11/16/19 09:20 81 24 108/67 (81) 91 Nasal Cannula 4.0 11/16/19 08:25 97.6 97.6 Comments Visual exam preformed as pt. seen during COVID-19 pandemic alert no distress no accessory muscle use Vapotherm appears comfortable RRR No rash no edema General: Alert, No acute distress Labs Laboratory Tests Test 11/14/19 12:18 11/14/19 17:23 11/15/19 08:37 11/15/19 12:39 Glucose (Fingerstick) 309 mg/dL (70-99) 264 mg/dL (70-99) 220 mg/dL (70-99) 299 mg/dL (70-99) Test 11/15/19 17:28 11/15/19 20:53 11/16/19 08:40 Glucose (Fingerstick) 297 mg/dL (70-99) 273 mg/dL (70-99) 262 mg/dL (70-99) Laboratory Tests Test 11/15/19 12:39 11/15/19 17:28 11/15/19 20:53 11/16/19 08:40 Glucose (Fingerstick) 299 mg/dL (70-99) 297 mg/dL (70-99) 273 mg/dL (70-99) 262 mg/dL (70-99) Medications Active Scripts Medications Dose Route/Sig Max Daily Dose Days Date Category No Active Prescriptions or Reported Medications Rx Comments CXR 11/12 IMPRESSION: Acute alveolar infiltrates mild progression Impression . IMPRESSION: 1. Acute hypoxic respiratory failure secondary to COVID-19 pneumonia- ongoing, improving gradually 2. Abnormal chest x-ray with faint bilateral patchy infiltrates favoring COVID- 19 pneumonia. 3. No significant tobacco history. 4. Type 2 diabetes. 5. Fever -resolved 6. leukocytosis -- worsening , no fever, likely due to steroids Plan . RECOMMENDATIONS: Slowly clinically improving Continue present oxygen to keep saturation 92 and above, Nasal canula has competed full course of antibiotics Cont. steroids, will reduce dose . will need total 10 days of steroid treatment DVT prophylaxis with Lovenox. S/P convalescent plasma on 11/08/2019, on remdesivir, started 11/09 Continue to monitor clinical course transfer to floor repeat covid Discussed with RN and RT DALLIN RICHEY MD Nov 16, 2019 09:32
--- NOTE | 2019-11-16 14:50 | NUR ---
SS following up with discharge planning. SS reviewed pt chart and discussed with pt RN. Pt now on nasal canula oxygen at 4 liters. COVID19 positive. Pt transferring up today. SS will continue to follow for discharge planning.
--- NOTE | 2019-11-16 20:10 | NUR ---
Transferred to room 665 with all personal belongings.
--- NOTE | 2019-11-16 22:28 | NUR ---
Pt transferred from icu per wheelchair to 665 , Assessment completed vs obtained and stable pt denied pain at this time poc explained call light placed in reach will resume care and continue to monitor pt.
[2019-11-17 03:03] VITALS: BP 93/58
[2019-11-17 05:03] LABS: BASO % 0 % (0-3); EOS % 0 % (0-3); HEMATOCRIT 43.2 % (39.0-53.0); HEMOGLOBIN 14.3 g/dL (13.0-17.5); LYMPH # 1.6 x10^3/uL (1.0-4.8); LYMPH % 12 % (24-48); MEAN CORPUSCULAR HEMOGLOBIN 29 pg (25-35); MEAN CORPUSCULAR HGB CONC 33 g/dL (31-37); MEAN CORPUSCULAR VOLUME 88 fL (79-100); MONO # 1.6 x10^3/uL (0.0-1.1); MONO % 12 % (0-9); NEUT # 10.4 x10^3/uL (1.8-7.7); NEUT % 76 % (31-73); PLATELET COUNT 333 x10^3/uL (140-400); RED BLOOD COUNT 4.92 x10^6/uL (4.30-5.70); RED CELL DISTRIBUTION WIDTH 13.4 % (11.5-14.5); WHITE BLOOD COUNT 13.7 x10^3/uL (4.0-11.0)
[2019-11-17] MEDS: IV NORMAL SALINE 1000ML BAG 1,000 ML IV SCH ×3 (05:25→21:47)
[2019-11-17 07:00] VITALS: BP 97/62
--- NOTE | 2019-11-17 07:19 | PDOC ---
[facility] PROGRESS NOTE Date of Service DOS: DATE: 11/17/19 TIME: 07:18 Chief Complaint Chief Complaint COVID 19 Acute hypoxia Pneumonia Sepsis Moderate malnutrition DM 2 Plan: Slowly clinically improving Continue present oxygen to keep saturation 92 and above,currently on 2 liters N/C has competed full course of antibiotics cont. steroids will need total 10 days of steroid treatment DVT prophylaxis with Lovenox. S/P convalescent plasma on 11/08/2019, on remdesivir, started 11/09 Continue to monitor clinical course repeat covid still positive on 11/16/2019 History of Present Illness History of Present Illness Mr Lniares is a 48-year-old male with history of diabetes, presented to the ER on 11/07/2019 with cough, fever, shortness of breath and generalized weak ness. The patient felt sick about a week prior to admission. He was tested positive for COVID-19 on 10/30/2019 at an outside facility. The patient continued to have worsening breathing, so he presented to ER. His white count was 7.9, creatinine of 0.8, lactate of 1.3, AST 44, ALT 47, bilirubin normal, lipase 112, fever of 101. Chest x-ray showed patchy bilateral infiltrates. He received a dose of ceftriaxone and doxycycline. He was admitted to ICU for further evaluation and treatment. The patient received convalescent plasma on 11/08. Started remdesivir on 11/10/2019. Pulm and ID consulted. Initially on Vapotherm O2. 11/08: Resting comfortably On vapotherm. Received Plasma 11/09: Patient is sitting up and resting comfortably on Vapotherm. Started remdes evir 11/10: On Vapotherm, remdesivir 11/11: Patient seen and examined in the ICU. Resting comfortably, on Vapotherm at 40 L and 100% 11/12: Patient seen and examined in the Covid-19 ICU, He is on 35 L Vapotherm 11/13:Patient still on Vapotherm 11/14: No acute events reported overnight, patient continues to require a significant amount of oxygen 11/15: Weaned down to O2 from vapotherm, transferred to med/tele Afebrile. On 2L NCO2. Feeling improved. Vitals/I&O Vitals/I&O: Vital Signs Date Time Temp Pulse Resp B/P (MAP) Pulse Ox O2 Delivery O2 Flow Rate FiO2 11/17/19 03:03 97.7 64 18 93/58 (70) 96 Nasal Cannula 3.0 97.7 I & O 11/16/19 11/16/19 11/17/19 15:00 23:00 07:00 Intake Total 640 ml 240 ml Output Total 850 ml 750 ml 1200 ml Balance -210 ml -510 ml -1200 ml Physical Exam Physical Exam: GENERAL: Propped up in bed, alert, calm, in NAD - Looks better HEENT: Oral mucosa moist. No thrush. NECK: Supple. No JVD. LUNGS: Clear bilaterally, No accessory muscle use. HEART: S1, S2. No gallops or murmurs, regular ABDOMEN: Soft, nontender, nondistended. EXTREMITIES: No edema, no cyanosis. DERMATOLOGIC: Warm, dry. No generalized rash. NEUROLOGIC: Alert and oriented x 3, grossly nonfocal. PSYCHIATRIC: Cooperative, calm. PIV looks ok General: Alert, Oriented X3, Cooperative, No acute distress Heart: Regular rate Abdomen: Soft, No tenderness, No masses Extremities: No clubbing, No cyanosis, No edema Skin: No rashes, No breakdown, No significant lesion Labs Labs: Laboratory Tests Test 11/16/19 08:40 11/16/19 12:47 11/16/19 13:00 11/16/19 17:41 Glucose (Fingerstick) 262 mg/dL (70-99) 273 mg/dL (70-99) 233 mg/dL (70-99) Coronavirus (PCR) Detected (Not Detected) Test 11/16/19 20:21 11/17/19 04:30 Glucose (Fingerstick) 266 mg/dL (70-99) White Blood Count 13.7 x10^3/uL (4.0-11.0) Red Blood Count 4.92 x10^6/uL (4.30-5.70) Hemoglobin 14.3 g/dL (13.0-17.5) Hematocrit 43.2 % (39.0-53.0) Mean Corpuscular Volume 88 fL (79-100) Mean Corpuscular Hemoglobin 29 pg (25-35) Mean Corpuscular Hemoglobin Concent 33 g/dL (31-37) Red Cell Distribution Width 13.4 % (11.5-14.5) Platelet Count 333 x10^3/uL (140-400) Neutrophils (%) (Auto) 76 % (31-73) Lymphocytes (%) (Auto) 12 % (24-48) Monocytes (%) (Auto) 12 % (0-9) Eosinophils (%) (Auto) 0 % (0-3) Basophils (%) (Auto) 0 % (0-3) Neutrophils # (Auto) 10.4 x10^3/uL (1.8-7.7) Lymphocytes # (Auto) 1.6 x10^3/uL (1.0-4.8) Monocytes # (Auto) 1.6 x10^3/uL (0.0-1.1) Eosinophils # (Auto) 0.0 x10^3/uL (0.0-0.7) Basophils # (Auto) 0.0 x10^3/uL (0.0-0.2) Assessment and Plan Assessmemt and Plan Problems Medical Problems: (1) COVID-19 virus infection Status: Acute (2) Hypoxia Status: Acute (3) Pneumonia due to 2019 novel coronavirus Status: Acute Comment Review of Relevant I have reviewed the following items jameson (where applicable) has been applied. Medications: Current Medications Medications (Trade) Dose Ordered Sig/Amy Route PRN Reason Start Time Stop Time Status Last Admin Dose Admin Insulin Glargine (Lantus Syringe) 14 unit BID SQ 11/16/19 21:00 11/16/19 20:44 Justicifation of Admission Dx: Justifications for Admission: Justification of Admission Dx: Yes Comminuty Aquired Pneumonia: Hypoxemia JAYNA ALBARRAN MD Nov 17, 2019 07:18
[2019-11-17] MEDS: INSULIN LISPRO 300 UNITS/3 ML VIAL. SQ SCH ×3 (08:00→17:33)
[2019-11-17] MEDS: MULTIVITAMIN with MINERAL TABLET. PO SCH (09:50)
[2019-11-17] MEDS: LACTOBACILLUS RHAMNOSUS GG 1 CAPSULE. PO SCH ×2 (09:50→21:45)
[2019-11-17] MEDS: FOLIC/VIT B COMP W-C (RENAL) TABLET. PO SCH (09:50)
[2019-11-17] MEDS: BENZONATATE 100 MG CAPSULE. PO SCH ×3 (09:50→21:45)
[2019-11-17] MEDS: ZINC SULFATE 220 MG CAPSULE. PO SCH (09:50)
[2019-11-17] MEDS: methylPREDNISolone SOD SUCC PF 40 MG/ML VIAL. IV SCH (09:50)
[2019-11-17] MEDS: ENOXAPARIN 40 MG/0.4 ML SYRINGE. SQ SCH ×2 (09:51→21:46)
[2019-11-17] MEDS: INSULIN GLARGINE SYRINGE. SQ SCH ×2 (09:52→22:00)
[2019-11-17 11:00] VITALS: BP 107/64
--- NOTE | 2019-11-17 11:07 | PDOC ---
PULMONARY PROGRESS NOTES DATE: 11/17/19 TIME: 11:04 Subjective Off vapotherm now on N/C oxygen, 2 liters No overnight concerns from nursing a-febrile No SOA, No Cough or CP Vitals Vital Signs Date Time Temp Pulse Resp B/P (MAP) Pulse Ox O2 Delivery O2 Flow Rate FiO2 11/17/19 07:00 98.1 80 17 97/62 (74) 92 Nasal Cannula 2.0 98.1 Comments Visual exam preformed as pt. seen during pandemic alert no distress no accessory muscle use Vapotherm appears comfortable RRR No rash no edema General: Alert, No acute distress Labs Laboratory Tests Test 11/15/19 12:39 11/15/19 17:28 11/15/19 20:53 11/16/19 08:40 Glucose (Fingerstick) 299 mg/dL (70-99) 297 mg/dL (70-99) 273 mg/dL (70-99) 262 mg/dL (70-99) Test 11/16/19 12:47 11/16/19 13:00 11/16/19 17:41 11/16/19 20:21 Glucose (Fingerstick) 273 mg/dL (70-99) 233 mg/dL (70-99) 266 mg/dL (70-99) Coronavirus (PCR) Detected (Not Detected) Test 11/17/19 04:30 11/17/19 08:16 White Blood Count 13.7 x10^3/uL (4.0-11.0) Red Blood Count 4.92 x10^6/uL (4.30-5.70) Hemoglobin 14.3 g/dL (13.0-17.5) Hematocrit 43.2 % (39.0-53.0) Mean Corpuscular Volume 88 fL (79-100) Mean Corpuscular Hemoglobin 29 pg (25-35) Mean Corpuscular Hemoglobin Concent 33 g/dL (31-37) Red Cell Distribution Width 13.4 % (11.5-14.5) Platelet Count 333 x10^3/uL (140-400) Neutrophils (%) (Auto) 76 % (31-73) Lymphocytes (%) (Auto) 12 % (24-48) Monocytes (%) (Auto) 12 % (0-9) Eosinophils (%) (Auto) 0 % (0-3) Basophils (%) (Auto) 0 % (0-3) Neutrophils # (Auto) 10.4 x10^3/uL (1.8-7.7) Lymphocytes # (Auto) 1.6 x10^3/uL (1.0-4.8) Monocytes # (Auto) 1.6 x10^3/uL (0.0-1.1) Eosinophils # (Auto) 0.0 x10^3/uL (0.0-0.7) Basophils # (Auto) 0.0 x10^3/uL (0.0-0.2) Glucose (Fingerstick) 129 mg/dL (70-99) Laboratory Tests Test 11/16/19 12:47 11/16/19 13:00 11/16/19 17:41 11/16/19 20:21 Glucose (Fingerstick) 273 mg/dL (70-99) 233 mg/dL (70-99) 266 mg/dL (70-99) Coronavirus (PCR) Detected (Not Detected) Test 11/17/19 04:30 11/17/19 08:16 White Blood Count 13.7 x10^3/uL (4.0-11.0) Red Blood Count 4.92 x10^6/uL (4.30-5.70) Hemoglobin 14.3 g/dL (13.0-17.5) Hematocrit 43.2 % (39.0-53.0) Mean Corpuscular Volume 88 fL (79-100) Mean Corpuscular Hemoglobin 29 pg (25-35) Mean Corpuscular Hemoglobin Concent 33 g/dL (31-37) Red Cell Distribution Width 13.4 % (11.5-14.5) Platelet Count 333 x10^3/uL (140-400) Neutrophils (%) (Auto) 76 % (31-73) Lymphocytes (%) (Auto) 12 % (24-48) Monocytes (%) (Auto) 12 % (0-9) Eosinophils (%) (Auto) 0 % (0-3) Basophils (%) (Auto) 0 % (0-3) Neutrophils # (Auto) 10.4 x10^3/uL (1.8-7.7) Lymphocytes # (Auto) 1.6 x10^3/uL (1.0-4.8) Monocytes # (Auto) 1.6 x10^3/uL (0.0-1.1) Eosinophils # (Auto) 0.0 x10^3/uL (0.0-0.7) Basophils # (Auto) 0.0 x10^3/uL (0.0-0.2) Glucose (Fingerstick) 129 mg/dL (70-99) Medications Active Scripts Medications Dose Route/Sig Max Daily Dose Days Date Category No Active Prescriptions or Reported Medications Rx Comments CXR 11/12 IMPRESSION: Acute alveolar infiltrates mild progression Impression . IMPRESSION: 1. Acute hypoxic respiratory failure secondary to COVID-19 pneumonia- ongoing, continues to improve 2. Abnormal chest x-ray with faint bilateral patchy infiltrates favoring COVID- 19 pneumonia. 3. No significant tobacco history. 4. Type 2 diabetes. 5. Fever -resolved 6. leukocytosis -- improved Plan . RECOMMENDATIONS: Slowly clinically improving Continue present oxygen to keep saturation 92 and above,currently on 2 liters N/ C has competed full course of antibiotics cont. steroids will need total 10 days of steroid treatment DVT prophylaxis with Lovenox. S/P convalescent plasma on 11/08/2019, on remdesivir, started 11/09 Continue to monitor clinical course repeat covid still positive on 11/16/2019 Discussed with RN and RT DALLIN RICHEY MD Nov 17, 2019 11:07
[2019-11-17 14:33] VITALS: BP 92/56
--- NOTE | 2019-11-17 17:28 | NUR ---
SW following. Reviewed chart and discussed with RN. Pt from home, 3l 02. Pt transferred from the ICU. Pt COVID positive. SW following.
[2019-11-17 19:00] VITALS: BP 102/63
[2019-11-17] MEDS: guaiFENesin/CODEINE 100mg/10mg 5 ML LIQUID PO PRN (22:00)
[2019-11-17 23:00] VITALS: BP 102/63
[2019-11-18] VITALS (7 sets, daily range): BP systolic 96–109; BP diastolic 53–69
[2019-11-18 03:55] LABS: BASO % 0 % (0-3); EOS % 0 % (0-3); HEMATOCRIT 40.9 % (39.0-53.0); HEMOGLOBIN 13.8 g/dL (13.0-17.5); LYMPH # 1.2 x10^3/uL (1.0-4.8); LYMPH % 11 % (24-48); MEAN CORPUSCULAR HEMOGLOBIN 30 pg (25-35); MEAN CORPUSCULAR HGB CONC 34 g/dL (31-37); MEAN CORPUSCULAR VOLUME 88 fL (79-100); MONO # 1.1 x10^3/uL (0.0-1.1); MONO % 11 % (0-9); NEUT # 7.9 x10^3/uL (1.8-7.7); NEUT % 78 % (31-73); PLATELET COUNT 294 x10^3/uL (140-400); RED BLOOD COUNT 4.64 x10^6/uL (4.30-5.70); RED CELL DISTRIBUTION WIDTH 13.4 % (11.5-14.5); WHITE BLOOD COUNT 10.2 x10^3/uL (4.0-11.0)
[2019-11-18 04:18] LABS: ALBUMIN 2.3 g/dL (3.4-5.0); ALBUMIN/GLOBULIN RATIO 0.7 (1.0-1.7); CALCIUM 7.6 mg/dL (8.5-10.1); CREATININE 0.7 mg/dL (0.7-1.3); GFR 119.4; POTASSIUM 3.8 mmol/L (3.5-5.1); TOTAL BILIRUBIN 1.3 mg/dL (0.2-1.0); TOTAL PROTEIN 5.7 g/dL (6.4-8.2)
[2019-11-18] MEDS: methylPREDNISolone SOD SUCC PF 40 MG/ML VIAL. IV SCH (09:24)
[2019-11-18] MEDS: guaiFENesin/CODEINE 100mg/10mg 5 ML LIQUID PO PRN ×2 (09:25→17:01)
[2019-11-18] MEDS: LACTOBACILLUS RHAMNOSUS GG 1 CAPSULE. PO SCH ×2 (09:25→21:41)
[2019-11-18] MEDS: MULTIVITAMIN with MINERAL TABLET. PO SCH (09:25)
[2019-11-18] MEDS: BENZONATATE 100 MG CAPSULE. PO SCH ×3 (09:25→21:41)
[2019-11-18] MEDS: ZINC SULFATE 220 MG CAPSULE. PO SCH (09:25)
[2019-11-18] MEDS: FOLIC/VIT B COMP W-C (RENAL) TABLET. PO SCH (09:25)
[2019-11-18] MEDS: ENOXAPARIN 40 MG/0.4 ML SYRINGE. SQ SCH ×2 (09:25→21:41)
[2019-11-18] MEDS: INSULIN LISPRO 300 UNITS/3 ML VIAL. SQ SCH ×3 (09:41→17:01)
[2019-11-18] MEDS: INSULIN GLARGINE SYRINGE. SQ SCH ×2 (09:42→21:43)
--- NOTE | 2019-11-18 10:23 | PDOC ---
PULMONARY PROGRESS NOTES DATE: 11/18/19 TIME: 10:22 Subjective Off vapotherm now on N/C oxygen, 2 liters No overnight concerns from nursing a-febrile No SOA, No Cough or CP Vitals Vital Signs Date Time Temp Pulse Resp B/P (MAP) Pulse Ox O2 Delivery O2 Flow Rate FiO2 11/18/19 08:53 98.1 86 18 100/55 (70) 93 Nasal Cannula 3.0 98.1 Comments Visual exam preformed as pt. seen during COVID-19 pandemic alert no distress no accessory muscle use Vapotherm appears comfortable RRR No rash no edema General: Alert, No acute distress Labs Laboratory Tests Test 11/16/19 12:47 11/16/19 13:00 11/16/19 17:41 11/16/19 20:21 Glucose (Fingerstick) 273 mg/dL (70-99) 233 mg/dL (70-99) 266 mg/dL (70-99) Coronavirus (PCR) Detected (Not Detected) Test 11/17/19 04:30 11/17/19 08:16 11/17/19 11:03 11/17/19 15:43 White Blood Count 13.7 x10^3/uL (4.0-11.0) Red Blood Count 4.92 x10^6/uL (4.30-5.70) Hemoglobin 14.3 g/dL (13.0-17.5) Hematocrit 43.2 % (39.0-53.0) Mean Corpuscular Volume 88 fL (79-100) Mean Corpuscular Hemoglobin 29 pg (25-35) Mean Corpuscular Hemoglobin Concent 33 g/dL (31-37) Red Cell Distribution Width 13.4 % (11.5-14.5) Platelet Count 333 x10^3/uL (140-400) Neutrophils (%) (Auto) 76 % (31-73) Lymphocytes (%) (Auto) 12 % (24-48) Monocytes (%) (Auto) 12 % (0-9) Eosinophils (%) (Auto) 0 % (0-3) Basophils (%) (Auto) 0 % (0-3) Neutrophils # (Auto) 10.4 x10^3/uL (1.8-7.7) Lymphocytes # (Auto) 1.6 x10^3/uL (1.0-4.8) Monocytes # (Auto) 1.6 x10^3/uL (0.0-1.1) Eosinophils # (Auto) 0.0 x10^3/uL (0.0-0.7) Basophils # (Auto) 0.0 x10^3/uL (0.0-0.2) Glucose (Fingerstick) 129 mg/dL (70-99) 303 mg/dL (70-99) 302 mg/dL (70-99) Test 11/17/19 21:01 11/18/19 03:40 11/18/19 07:32 Glucose (Fingerstick) 251 mg/dL (70-99) 152 mg/dL (70-99) White Blood Count 10.2 x10^3/uL (4.0-11.0) Red Blood Count 4.64 x10^6/uL (4.30-5.70) Hemoglobin 13.8 g/dL (13.0-17.5) Hematocrit 40.9 % (39.0-53.0) Mean Corpuscular Volume 88 fL (79-100) Mean Corpuscular Hemoglobin 30 pg (25-35) Mean Corpuscular Hemoglobin Concent 34 g/dL (31-37) Red Cell Distribution Width 13.4 % (11.5-14.5) Platelet Count 294 x10^3/uL (140-400) Neutrophils (%) (Auto) 78 % (31-73) Lymphocytes (%) (Auto) 11 % (24-48) Monocytes (%) (Auto) 11 % (0-9) Eosinophils (%) (Auto) 0 % (0-3) Basophils (%) (Auto) 0 % (0-3) Neutrophils # (Auto) 7.9 x10^3/uL (1.8-7.7) Lymphocytes # (Auto) 1.2 x10^3/uL (1.0-4.8) Monocytes # (Auto) 1.1 x10^3/uL (0.0-1.1) Eosinophils # (Auto) 0.0 x10^3/uL (0.0-0.7) Basophils # (Auto) 0.0 x10^3/uL (0.0-0.2) Sodium Level 138 mmol/L (136-145) Potassium Level 3.8 mmol/L (3.5-5.1) Chloride Level 104 mmol/L (98-107) Carbon Dioxide Level 30 mmol/L (21-32) Anion Gap 4 (6-14) Blood Urea Nitrogen 14 mg/dL (8-26) Creatinine 0.7 mg/dL (0.7-1.3) Estimated GFR (Cockcroft-Gault) 119.4 BUN/Creatinine Ratio 20 (6-20) Glucose Level 178 mg/dL (70-99) Calcium Level 7.6 mg/dL (8.5-10.1) Total Bilirubin 1.3 mg/dL (0.2-1.0) Aspartate Amino Transf (AST/SGOT) 12 U/L (15-37) Alanine Aminotransferase (ALT/SGPT) 41 U/L (16-63) Alkaline Phosphatase 71 U/L (46-116) Total Protein 5.7 g/dL (6.4-8.2) Albumin 2.3 g/dL (3.4-5.0) Albumin/Globulin Ratio 0.7 (1.0-1.7) Laboratory Tests Test 11/17/19 11:03 11/17/19 15:43 11/17/19 21:01 11/18/19 03:40 Glucose (Fingerstick) 303 mg/dL (70-99) 302 mg/dL (70-99) 251 mg/dL (70-99) White Blood Count 10.2 x10^3/uL (4.0-11.0) Red Blood Count 4.64 x10^6/uL (4.30-5.70) Hemoglobin 13.8 g/dL (13.0-17.5) Hematocrit 40.9 % (39.0-53.0) Mean Corpuscular Volume 88 fL (79-100) Mean Corpuscular Hemoglobin 30 pg (25-35) Mean Corpuscular Hemoglobin Concent 34 g/dL (31-37) Red Cell Distribution Width 13.4 % (11.5-14.5) Platelet Count 294 x10^3/uL (140-400) Neutrophils (%) (Auto) 78 % (31-73) Lymphocytes (%) (Auto) 11 % (24-48) Monocytes (%) (Auto) 11 % (0-9) Eosinophils (%) (Auto) 0 % (0-3) Basophils (%) (Auto) 0 % (0-3) Neutrophils # (Auto) 7.9 x10^3/uL (1.8-7.7) Lymphocytes # (Auto) 1.2 x10^3/uL (1.0-4.8) Monocytes # (Auto) 1.1 x10^3/uL (0.0-1.1) Eosinophils # (Auto) 0.0 x10^3/uL (0.0-0.7) Basophils # (Auto) 0.0 x10^3/uL (0.0-0.2) Sodium Level 138 mmol/L (136-145) Potassium Level 3.8 mmol/L (3.5-5.1) Chloride Level 104 mmol/L (98-107) Carbon Dioxide Level 30 mmol/L (21-32) Anion Gap 4 (6-14) Blood Urea Nitrogen 14 mg/dL (8-26) Creatinine 0.7 mg/dL (0.7-1.3) Estimated GFR (Cockcroft-Gault) 119.4 BUN/Creatinine Ratio 20 (6-20) Glucose Level 178 mg/dL (70-99) Calcium Level 7.6 mg/dL (8.5-10.1) Total Bilirubin 1.3 mg/dL (0.2-1.0) Aspartate Amino Transf (AST/SGOT) 12 U/L (15-37) Alanine Aminotransferase (ALT/SGPT) 41 U/L (16-63) Alkaline Phosphatase 71 U/L (46-116) Total Protein 5.7 g/dL (6.4-8.2) Albumin 2.3 g/dL (3.4-5.0) Albumin/Globulin Ratio 0.7 (1.0-1.7) Test 11/18/19 07:32 Glucose (Fingerstick) 152 mg/dL (70-99) Medications Active Scripts Medications Dose Route/Sig Max Daily Dose Days Date Category No Active Prescriptions or Reported Medications Rx Comments CXR 11/12 IMPRESSION: Acute alveolar infiltrates mild progression Impression . IMPRESSION: 1. Acute hypoxic respiratory failure secondary to COVID-19 pneumonia- ongoing, continues to improve 2. Abnormal chest x-ray with faint bilateral patchy infiltrates favoring COVID- 19 pneumonia. 3. No significant tobacco history. 4. Type 2 diabetes. 5. Fever -resolved 6. leukocytosis -- improved Plan . RECOMMENDATIONS: Slowly clinically improving Continue present oxygen to keep saturation 92 and above,currently on 2 liters N/C has competed full course of antibiotics cont. steroids will need total 10 days of steroid treatment DVT prophylaxis with Lovenox. S/P convalescent plasma on 11/08/2019, on remdesivir, started 11/09 Continue to monitor clinical course repeat covid still positive on 11/16/2019 6 min walk and dc home Discussed with RN and RT DALLIN RICHEY MD Nov 18, 2019 10:23
[2019-11-18] MEDS: IV NORMAL SALINE 1000ML BAG 1,000 ML IV SCH (12:42)
--- NOTE | 2019-11-18 12:45 | PDOC ---
[facility] PROGRESS NOTE Date of Service DOS: DATE: 11/18/19 TIME: 12:44 Chief Complaint Chief Complaint COVID 19 Acute hypoxia Pneumonia Sepsis Moderate malnutrition DM 2 Plan: Slowly clinically improving Continue present oxygen to keep saturation 92 and above,currently on 2 liters N/C has competed full course of antibiotics cont. steroids will need total 10 days of steroid treatment DVT prophylaxis with Lovenox. S/P convalescent plasma on 11/08/2019, on remdesivir, started 11/09 Continue to monitor clinical course repeat covid still positive on 11/16/2019 History of Present Illness History of Present Illness Mr Linares is a 48-year-old male with history of diabetes, presented to the ER on 11/07/2019 with cough, fever, shortness of breath and generalized weak ness. The patient felt sick about a week prior to admission. He was tested positive for COVID-19 on 10/30/2019 at an outside facility. The patient continued to have worsening breathing, so he presented to ER. His white count was 7.9, creatinine of 0.8, lactate of 1.3, AST 44, ALT 47, bilirubin normal, lipase 112, fever of 101. Chest x-ray showed patchy bilateral infiltrates. He received a dose of ceftriaxone and doxycycline. He was admitted to ICU for further evaluation and treatment. The patient received convalescent plasma on 11/08. Started remdesivir on 11/10/2019. Pulm and ID consulted. Initially on Vapotherm O2. 11/08: Resting comfortably On vapotherm. Received Plasma 11/09: Patient is sitting up and resting comfortably on Vapotherm. Started remdes evir 11/10: On Vapotherm, remdesivir 11/11: Patient seen and examined in the ICU. Resting comfortably, on Vapotherm at 40 L and 100% 11/12: Patient seen and examined in the Covid-19 ICU, He is on 35 L Vapotherm 11/13:Patient still on Vapotherm 11/14: No acute events reported overnight, patient continues to require a significant amount of oxygen 11/15: Weaned down to O2 from vapotherm, transferred to med/tele 11/16: Afebrile. On 2L NCO2. Feeling improved. Afebrile, on 2 L nasal cannula O2. He is feeling improved. Glucose in the upper 100s to 200s. Vitals/I&O Vitals/I&O: Vital Signs Date Time Temp Pulse Resp B/P (MAP) Pulse Ox O2 Delivery O2 Flow Rate FiO2 11/18/19 11:28 98.3 72 18 96/53 (67) 92 Nasal Cannula 2.0 98.3 I & O 11/17/19 11/17/19 11/18/19 15:00 23:00 07:00 Intake Total 600 ml 0 ml Output Total 800 ml 500 ml Balance 600 ml -800 ml -500 ml Physical Exam Physical Exam: GENERAL: Propped up in bed, alert, calm, in NAD - Looks better HEENT: Oral mucosa moist. No thrush. NECK: Supple. No JVD. LUNGS: Clear bilaterally, No accessory muscle use. HEART: S1, S2. No gallops or murmurs, regular ABDOMEN: Soft, nontender, nondistended. EXTREMITIES: No edema, no cyanosis. DERMATOLOGIC: Warm, dry. No generalized rash. NEUROLOGIC: Alert and oriented x 3, grossly nonfocal. PSYCHIATRIC: Cooperative, calm. PIV looks ok General: Alert, Oriented X3, Cooperative, No acute distress Heart: Regular rate Abdomen: Soft, No tenderness, No masses Extremities: No clubbing, No cyanosis, No edema Skin: No rashes, No breakdown, No significant lesion Labs Labs: Laboratory Tests Test 11/17/19 15:43 11/17/19 21:01 11/18/19 03:40 11/18/19 07:32 Glucose (Fingerstick) 302 mg/dL (70-99) 251 mg/dL (70-99) 152 mg/dL (70-99) White Blood Count 10.2 x10^3/uL (4.0-11.0) Red Blood Count 4.64 x10^6/uL (4.30-5.70) Hemoglobin 13.8 g/dL (13.0-17.5) Hematocrit 40.9 % (39.0-53.0) Mean Corpuscular Volume 88 fL (79-100) Mean Corpuscular Hemoglobin 30 pg (25-35) Mean Corpuscular Hemoglobin Concent 34 g/dL (31-37) Red Cell Distribution Width 13.4 % (11.5-14.5) Platelet Count 294 x10^3/uL (140-400) Neutrophils (%) (Auto) 78 % (31-73) Lymphocytes (%) (Auto) 11 % (24-48) Monocytes (%) (Auto) 11 % (0-9) Eosinophils (%) (Auto) 0 % (0-3) Basophils (%) (Auto) 0 % (0-3) Neutrophils # (Auto) 7.9 x10^3/uL (1.8-7.7) Lymphocytes # (Auto) 1.2 x10^3/uL (1.0-4.8) Monocytes # (Auto) 1.1 x10^3/uL (0.0-1.1) Eosinophils # (Auto) 0.0 x10^3/uL (0.0-0.7) Basophils # (Auto) 0.0 x10^3/uL (0.0-0.2) Sodium Level 138 mmol/L (136-145) Potassium Level 3.8 mmol/L (3.5-5.1) Chloride Level 104 mmol/L (98-107) Carbon Dioxide Level 30 mmol/L (21-32) Anion Gap 4 (6-14) Blood Urea Nitrogen 14 mg/dL (8-26) Creatinine 0.7 mg/dL (0.7-1.3) Estimated GFR (Cockcroft-Gault) 119.4 BUN/Creatinine Ratio 20 (6-20) Glucose Level 178 mg/dL (70-99) Calcium Level 7.6 mg/dL (8.5-10.1) Total Bilirubin 1.3 mg/dL (0.2-1.0) Aspartate Amino Transf (AST/SGOT) 12 U/L (15-37) Alanine Aminotransferase (ALT/SGPT) 41 U/L (16-63) Alkaline Phosphatase 71 U/L (46-116) Total Protein 5.7 g/dL (6.4-8.2) Albumin 2.3 g/dL (3.4-5.0) Albumin/Globulin Ratio 0.7 (1.0-1.7) Test 11/18/19 10:30 Glucose (Fingerstick) 220 mg/dL (70-99) Assessment and Plan Assessmemt and Plan Problems Medical Problems: (1) COVID-19 virus infection Status: Acute (2) Hypoxia Status: Acute (3) Pneumonia due to 2019 novel coronavirus Status: Acute Comment Review of Relevant I have reviewed the following items jameson (where applicable) has been applied. Justicifation of Admission Dx: Justifications for Admission: Justification of Admission Dx: Yes Comminuty Aquired Pneumonia: Hypoxemia JAYNA ALBARRAN MD Nov 18, 2019 12:45
[2019-11-19] MEDS: IV NORMAL SALINE 1000ML BAG 1,000 ML IV SCH (01:25)
[2019-11-19 03:40] VITALS: BP 92/55
[2019-11-19 07:25] VITALS: BP 110/65
[2019-11-19] MEDS: ZINC SULFATE 220 MG CAPSULE. PO SCH (07:39)
[2019-11-19] MEDS: LACTOBACILLUS RHAMNOSUS GG 1 CAPSULE. PO SCH ×2 (07:39→20:50)
[2019-11-19] MEDS: MULTIVITAMIN with MINERAL TABLET. PO SCH (07:39)
[2019-11-19] MEDS: BENZONATATE 100 MG CAPSULE. PO SCH ×3 (07:39→20:50)
[2019-11-19] MEDS: FOLIC/VIT B COMP W-C (RENAL) TABLET. PO SCH (07:39)
[2019-11-19] MEDS: INSULIN LISPRO 300 UNITS/3 ML VIAL. SQ SCH ×3 (08:34→17:10)
[2019-11-19] MEDS: methylPREDNISolone SOD SUCC PF 40 MG/ML VIAL. IV SCH (08:36)
[2019-11-19] MEDS: INSULIN GLARGINE SYRINGE. SQ SCH ×2 (08:38→21:05)
--- NOTE | 2019-11-19 09:05 | PDOC ---
[facility] PROGRESS NOTE Date of Service DOS: DATE: 11/19/19 TIME: 09:04 Chief Complaint Chief Complaint COVID 19 Acute hypoxia Pneumonia Sepsis Severe protein calorie malnutrition DM 2 Plan: Slowly clinically improving Continue present oxygen to keep saturation 92 and above,currently on 2 liters N /C has competed full course of antibiotics cont. steroids will need total 10 days of steroid treatment DVT prophylaxis with Lovenox. S/P convalescent plasma on 11/08/2019, on remdesivir, started 11/09 Continue to monitor clinical course repeat covid still positive on 11/16/2019 History of Present Illness History of Present Illness Mr Linares is a 48-year-old male with history of diabetes, presented to the ER on 11/07/2019 with cough, fever, shortness of breath and generalized weakness. The patient felt sick about a week prior to admission. He was tested positive for COVID-19 on 10/30/2019 at an outside facility. The patient continued to have worsening breathing, so he presented to ER. His white count was 7.9, creatinine of 0.8, lactate of 1.3, AST 44, ALT 47, bilirubin normal, lipase 112, fever of 101. Chest x-ray showed patchy bilateral infiltrates. He received a dose of ceftriaxone and doxycycline. He was admitted to ICU for further evaluation and treatment. The patient received convalescent plasma on 11/08. Started remdesivir on 11/10/2019. Pulm and ID consulted. Initially on Vapotherm O2. 11/08: Resting comfortably On vapotherm. Received Plasma 11/09: Patient is sitting up and resting comfortably on Vapotherm. Started remdesevir 11/10: On Vapotherm, remdesivir 11/11: Patient seen and examined in the ICU. Resting comfortably, on Vapotherm at 40 L and 100% 11/12: Patient seen and examined in the Covid-19 ICU, He is on 35 L Vapotherm 11/13:Patient still on Vapotherm 11/14: No acute events reported overnight, patient continues to require a significant amount of oxygen 11/15: Weaned down to O2 from vapotherm, transferred to med/tele 11/16: Afebrile. On 2L NCO2. Feeling improved. 11/17: Afebrile, on 2 L nasal cannula O2. He is feeling improved. Glucose in the upper 100s to 200s. Afebrile. 3 L nasal cannula oxygen. He is eating well and feeling overall improved. still coughing forcefully, though. Desaturations with movement to the restroom. Vitals/I&O Vitals/I&O: Vital Signs Date Time Temp Pulse Resp B/P (MAP) Pulse Ox O2 Delivery O2 Flow Rate FiO2 11/19/19 07:25 97.9 69 18 110/65 (80) 92 Nasal Cannula 2.0 97.9 I & O 11/18/19 11/18/19 11/19/19 15:00 23:00 07:00 Intake Total 440 ml 300 ml 480 ml Output Total 1100 ml 1400 ml 1000 ml Balance -660 ml -1100 ml -520 ml Physical Exam Physical Exam: GENERAL: Propped up in bed, alert, calm, in NAD - Looks better HEENT: Oral mucosa moist. No thrush. NECK: Supple. No JVD. LUNGS: Clear bilaterally, No accessory muscle use. HEART: S1, S2. No gallops or murmurs, regular ABDOMEN: Soft, nontender, nondistended. EXTREMITIES: No edema, no cyanosis. DERMATOLOGIC: Warm, dry. No generalized rash. NEUROLOGIC: Alert and oriented x 3, grossly nonfocal. PSYCHIATRIC: Cooperative, calm. PIV looks ok General: Alert, Oriented X3, Cooperative, No acute distress Heart: Regular rate Abdomen: Soft, No tenderness, No masses Extremities: No clubbing, No cyanosis, No edema Skin: No rashes, No breakdown, No significant lesion Labs Labs: Laboratory Tests Test 11/18/19 10:30 11/18/19 16:21 11/18/19 21:38 11/19/19 07:34 Glucose (Fingerstick) 220 mg/dL (70-99) 315 mg/dL (70-99) 215 mg/dL (70-99) 165 mg/dL (70-99) Assessment and Plan Assessmemt and Plan Problems Medical Problems: (1) COVID-19 virus infection Status: Acute (2) Hypoxia Status: Acute (3) Pneumonia due to 2019 novel coronavirus Status: Acute Comment Review of Relevant I have reviewed the following items jameson (where applicable) has been applied. Justicifation of Admission Dx: Justifications for Admission: Justification of Admission Dx: Yes Comminuty Aquired Pneumonia: Hypoxemia RIFFEL,CHRISTOPHER S MD Nov 19, 2019 09:05
[2019-11-19] MEDS: ENOXAPARIN 40 MG/0.4 ML SYRINGE. SQ SCH ×2 (09:59→20:51)
[2019-11-19 11:26] VITALS: BP 97/60
[2019-11-19 15:15] VITALS: BP 109/66
[2019-11-19 19:20] VITALS: BP 100/62
[2019-11-19 23:50] VITALS: BP 98/64
[2019-11-20 03:35] VITALS: BP 109/64
[2019-11-20 07:18] VITALS: BP 107/90
[2019-11-20] MEDS: INSULIN LISPRO 300 UNITS/3 ML VIAL. SQ SCH ×3 (08:00→17:00)
[2019-11-20] MEDS: FOLIC/VIT B COMP W-C (RENAL) TABLET. PO SCH (09:41)
[2019-11-20] MEDS: LACTOBACILLUS RHAMNOSUS GG 1 CAPSULE. PO SCH (09:41)
[2019-11-20] MEDS: ZINC SULFATE 220 MG CAPSULE. PO SCH (09:41)
[2019-11-20] MEDS: MULTIVITAMIN with MINERAL TABLET. PO SCH (09:41)
[2019-11-20] MEDS: methylPREDNISolone SOD SUCC PF 40 MG/ML VIAL. IV SCH (09:42)
[2019-11-20] MEDS: INSULIN GLARGINE SYRINGE. SQ SCH (09:44)
[2019-11-20] MEDS: BENZONATATE 100 MG CAPSULE. PO SCH ×2 (09:47→14:00)
[2019-11-20] MEDS: ENOXAPARIN 40 MG/0.4 ML SYRINGE. SQ SCH (09:48)
[2019-11-20] MEDS: guaiFENesin/CODEINE 100mg/10mg 5 ML LIQUID PO PRN (09:48)
--- NOTE | 2019-11-20 11:04 | PDOC ---
PULMONARY PROGRESS NOTES DATE: 11/20/19 TIME: 11:03 Subjective Off vapotherm now on N/C oxygen, 2 liters No overnight concerns from nursing a-febrile No SOA, No Cough or CP Vitals Vital Signs Date Time Temp Pulse Resp B/P (MAP) Pulse Ox O2 Delivery O2 Flow Rate FiO2 11/20/19 07:18 98.9 72 18 107/90 (96) 92 Nasal Cannula 3.0 98.9 Comments Visual exam preformed as pt. seen during COVID-19 pandemic alert no distress no accessory muscle use Vapotherm appears comfortable RRR No rash no edema General: Alert, No acute distress Labs Laboratory Tests Test 11/18/19 16:21 11/18/19 21:38 11/19/19 07:34 11/19/19 10:48 Glucose (Fingerstick) 315 mg/dL (70-99) 215 mg/dL (70-99) 165 mg/dL (70-99) 137 mg/dL (70-99) Test 11/19/19 16:23 11/19/19 21:01 11/20/19 07:08 11/20/19 10:28 Glucose (Fingerstick) 305 mg/dL (70-99) 245 mg/dL (70-99) 118 mg/dL (70-99) 202 mg/dL (70-99) Laboratory Tests Test 11/19/19 16:23 11/19/19 21:01 11/20/19 07:08 11/20/19 10:28 Glucose (Fingerstick) 305 mg/dL (70-99) 245 mg/dL (70-99) 118 mg/dL (70-99) 202 mg/dL (70-99) Medications Active Scripts Medications Dose Route/Sig Max Daily Dose Days Date Category No Active Prescriptions or Reported Medications Rx Comments CXR 11/12 IMPRESSION: Acute alveolar infiltrates mild progression Impression . IMPRESSION: 1. Acute hypoxic respiratory failure secondary to COVID-19 pneumonia- ongoing, continues to improve 2. Abnormal chest x-ray with faint bilateral patchy infiltrates favoring COVID- 19 pneumonia. 3. No significant tobacco history. 4. Type 2 diabetes. 5. Fever -resolved 6. leukocytosis -- improved Plan . RECOMMENDATIONS: Slowly clinically improving Continue present oxygen to keep saturation 92 and above,currently on 2 liters N /C has competed full course of antibiotics cont. steroids will need total 10 days of steroid treatment DVT prophylaxis with Lovenox. S/P convalescent plasma on 11/08/2019, on remdesivir, started 11/09 Continue to monitor clinical course repeat covid still positive on 11/16/2019 6 min walk and dc home Discussed with DALLIN JONES MD Nov 20, 2019 11:04
[2019-11-20 11:39] VITALS: BP 105/67
--- NOTE | 2019-11-20 14:31 | NUR ---
SW following. Spoke with RN and reviewed chart. Pt will likely discharge home today self-care on oral medications. SW awaiting results of 6 min walk to determine if 02 setup is needed. LVM for respiratory. REHANA following. Addendum: 11/20/19 at 1636 by TRICIA KIMBALL SW obtained 6 min walk and 02 needs indicted. Discharge orders have been completed. REHANA spoke with pt who stated his [place] is limited and to call his dtr. REHANA called pt's dtr Bri ([phone]). REHANA confirmed pt's address on the facesheet. REHANA completed Patient Choice of Vendor form with the dtr. SW obtained 02 script and phoned and faxed it with supporting documentation to [facility]. Spoke with Nimo at [facility] who confirmed referral was received and authorized a tank be released to pt for discharge. Pt's dtr to call [facility] to make arrangements for home 02 setup and will arrive at the hospital to provide pt with transportation home at 1730. RN notified. 02 tank taken to pt. No further SW needs at this time.
[2019-11-20 15:14] VITALS: BP 109/70
--- NOTE | 2019-11-20 15:22 | DISCH ---
DISCHARGE INSTRUCTIONS Condition on Discharge Condition on Discharge: Stable (Would recommend at least 1 week of recovery before returning to work.) Activity After Discharge Activity Instructions for Disc: No restrictions Lifting Instructions after Dis: No heavy lifting Exercise Instruction after Dis: Walk 30 min, 3 x per week, Walk 30 min, 5 x per week Driving Instructions after Dis: Do not drive, Do not drive today Diet after Discharge Diet after Discharge: Cardiac, Diabetic No Calorie Level Checks after Discharge Checks after discharge: Check blood press - daily, Check blood sugar, ac/hs Contacting the DR. after DC Call your doctor for: Concerns you may have Follow-Up Follow up with: PCP in 1 week Treatment/Equipment after DC Adaptive Equipment Issued: None TAHIR GOMEZ MD Nov 20, 2019 15:22
[2019-11-20] MEDS ORDERED: METF500T16 PO (17:24)
[2019-11-20] MEDS ORDERED: PRED20TA PO (17:35)
--- NOTE | 2019-11-20 19:23 | NUR ---
Discharge Note: [facility] Discharge instructions and discharge home medications reviewed with patient and a copy given. Product Technician phone used for communication. All questions have been answered and understanding verbalized. The following instructions and handouts were given: Take home meds as directed Oxygen 3 liters ar rest, 6 liters with activity. Follow up with PCP in a week Isolate at home, avoid going out, wash hands, wear masks COVID instructions printed and given to the patient Watch out for severe shortness of breath, severe weakness. Oxygen tank with patient. [facility] notified of pt discharge. Discontinued lines and drains: peripheral IV intact, patient tolerated removal, no complications noted Patient discharged to home with self-care on 3 liters oxygen via wheelchair
--- NOTE | 2019-11-20 19:52 | PDOC3 ---
[facility]-Discharge Summary Admission Diagnosis: Admitting Diagnosis: COVID 19 acute hypoxia pneumonia sepsis moderate malnutrition Dm2, will do lantus and sliding scale Discharge Diagnosis: Discharge Diagnosis: COVID 19 acute hypoxia pneumonia sepsis moderate malnutrition Dm2 Consults: Consults: Pulmonary Infectious disease Hospital Course: Hospital Course: 48-year-old male with history of diabetes, presented to the ER on 11/07/2019 with cough, fever, shortness of breath and generalized weakness. The patient felt sick about a week prior to admission. He was tested positive for COVID-19 on 10/30/2019 at an outside facility. The patient continued to have worsening breathing, so he presented to ER. His white count was 7.9, creatinine of 0.8, lactate of 1.3, AST 44, ALT 47, bilirubin normal, lipase 112, fever of 101. Chest x-ray showed patchy bilateral infiltrates. He received a dose of ceftriaxone and doxycycline. He was admitted to ICU for further evaluation and treatment. The patient received convalescent plasma on 11/08. Started remdesivir on 11/10/2019. Pulm and ID consulted. Initially on Vapotherm O2. Patient was admitted for further care and required to be closely managed in the ICU. He was started on steroid high dose treatment per pulmonary and also infectious disease recommended to start convalescent plasma on 11/09/2019. Patient was also started on Remdesivir on 814. Patient was found to be persistently COVID positive on the November 15. Patient was clinically improving slowly and eventually was able to maintain saturations of about 92% on 2 L nasal cannula. Patient was evaluated for necessity of home oxygen and a 6- minute walk test was done on the day of discharge. Patient did desaturate upon ambulation and he will need to go home with oxygen. The rest of the patient's hospital course was uneventful Physical exam on day of discharge General: Alert, Oriented X3, Cooperative, No acute distress Heart: Regular rate Abdomen: Soft, No tenderness, No masses Extremities: No clubbing, No cyanosis, No edema Skin: No rashes, No breakdown, No significant lesion Disposition: Disposition/Orders: D/C to Home Activity: Activity: Resume previous activity Diet: Diet: Consistent Carbohydrate Medications: Home Meds Active Scripts Prednisone (PREDNISONE) 20 Mg Tablet, 30 MG PO DAILY for dyspnea, #10 TAB Prov:TAHIR GOMEZ MD 11/20/19 Reported Medications Metformin Hcl (METFORMIN HCL) 500 Mg Tablet, 500 MG PO BIDWMEALS for ANTI- DIABETIC, TAB 0 Refills 11/20/19 Scheduled Metformin Hcl (Metformin Hcl), 500 MG PO BIDWMEALS, (Reported) Prednisone (Prednisone), 30 MG PO DAILY Total Time: Total Time: Total time spent was 45 minutes in preparing scripts, discharge planning with SWI and RN and preparing this discharge summary Justicifation of Admission Dx: Justifications for Admission: Justification of Admission Dx: Yes Comminuty Aquired Pneumonia: Hypoxemia TAHIR GOMEZ MD Nov 20, 2019 19:52
[2019-11-21] MEDS ORDERED: predniSONE 20 MG TABLET PO SCH (09:00)
== END 2019-11-20 17:30 | disposition home or self-care (01) | DRG 177 ==
LOC: ER 10:25 → 6 SOUTH 13:12 → 1 WEST ICU 11-08 12:00 → 6 SOUTH 11-16 20:10
PROVIDERS: ADMIT Internal Medicine; ATTEND Internal Medicine
PROC: XW13325 Transfusion of Convalescent Plasma (Nonautologous) into Peripheral Vein, Percutaneous Approach, New Technology Group 5 (ICD-10-PCS; principal; 2019-11-09)
PROC: XW033E5 Introduction of Remdesivir Anti-infective into Peripheral Vein, Percutaneous Approach, New Technology Group 5 (ICD-10-PCS; 2019-11-10)
DX: U07.1 COVID-19 (principal); A41.9 Sepsis, unspecified organism; J96.01 Acute respiratory failure with hypoxia; J12.89 Other viral pneumonia; E43 Unspecified severe protein-calorie malnutrition; G89.29 Other chronic pain; E78.00 Pure hypercholesterolemia, unspecified; E11.9 Type 2 diabetes mellitus without complications; E78.5 Hyperlipidemia, unspecified; M19.90 Unspecified osteoarthritis, unspecified site; Z83.3 Family history of diabetes mellitus; Z68.25 Body mass index [BMI] 25.0-25.9, adult
CPT/HCPCS: 36415; 36600; 71045; 80048; 80053; 80076; 81001; 82728; 82805; 82962; 83605; 83615; 83690; 84484; 85007; 85025; 85379; 85610; 85730; 86140; 86850; 86900; 86901; 86927; 87040; 93005; 94618; 94760; 96374; 99285; J0696; J1650; J1815; J2920; J3490; J7030; G0378; P9017; U0003-CS